=== PATIENT | female | born 1965 | race Two or more races ===

== ENCOUNTER 2024-12-29 16:33 | Emergency (ER) | payer MEDICAID, SELFPAY ==
[2024-12-29 16:50] VITALS: BP 138/84; PULSE 98; RESP 18; TEMP 36.7; O2SAT 97
--- NOTE | 2024-12-29 16:57 | XR_ITS ---
Examination: CT maxillofacial, without intravenous contrast. 2-D sagittal reconstructions. 3-D reconstructions. Date and time of exam:December 29, 2024, 1826 hours INDICATION: Patient fell today with injury of the face, facial pain CTDI: vol (mGy):17.8 DLP: (mGycm):315 Technique: Multiple axial images of maxillofacial region, 3.0 mm slice thickness. 2-D sagittal and coronal reconstructions. 3-D reconstructions. Low dose protocols were performed. One or more of the following dose reduction techniques were used; automated exposure control, adjustment of the mA and/or KV according to patient size, use of iterative reconstruction technique. Findings: Mild left forehead scalp swelling Frontal bone is intact Orbital rims intact No acute nasal bone fracture. No depression zygomatic arches. Pterygoid plates maxilla and the mandible intact IMPRESSION: No acute facial fracture.
--- NOTE | 2024-12-29 16:57 | XR_ITS ---
Examination: Knee, right , 3 views Technique: Knee AP, lateral, oblique 3 views Date and time of exam: December 29, 2024, 1712 hours. INDICATIONS: Patient fell today with injury to the knee, knee pain. FINDINGS: Prominent osteopenia. No acute fracture. No dislocation IMPRESSION: No acute fracture
--- NOTE | 2024-12-29 16:57 | XR_ITS ---
Examination: CT brain head without contrast. 2-D sagittal coronal reconstructions Date and time of exam:December 29, 2024 1826 hours INDICATIONS: Patient fell today with injury to the head, head pain and facial pain neck pain CTDI: vol (mGy):46.1 DLP: (mGycm):897 Technique: Multiple CT axial sections of the brain have been obtained, 5 mm slice thickness. Contrast has not been administered. 2-D sagittal, coronal reconstructions have been obtained Low dose protocols were performed. One or more of the following dose reduction techniques were used; automated exposure control, adjustment of the mA and/or KV according to patient size, use of iterative reconstruction technique. Findings: No significant ventricular enlargement. Intra-axial or extra-axial hemorrhage density is not seen. No mass effect or midline shift Basal cisterns are not remarkable. Fourth ventricle is midline. Cranial vault intact. Impression: Negative for acute hemorrhage, mass effect or midline shift
--- NOTE | 2024-12-29 16:57 | XR_ITS ---
Examination: CT cervical spine without contrast 2-D sagittal reconstructions 2-D coronal reconstructions 3-D reconstructions. Exam date and time:December 29, 2024 1826 hours INDICATIONS: Patient fell today with injury to the neck, neck pain CTDI:vol (mGy) 12.5 DLP: (mGycm) 280 Technique: Multiple 2 mm axial sections of the cervical spine have been obtained. The coronal and sagittal reconstructions have been obtained. 3-D reconstructions have been obtained. Low dose protocols were performed. One or more of the following dose reduction techniques were used; automated exposure control, adjustment of the mA and/or KV according to patient size, use of iterative reconstruction technique. Findings: Axial sections demonstrate intact base of the skull. C1 exhibit satisfactory relationship to the odontoid. No acute cervical vertebral body fracture seen. Alignment posterior spinous processes satisfactory. Impression: No acute cervical fracture.
--- NOTE | 2024-12-29 16:57 | XR_ITS ---
Examination: Hand, left 3 views Technique: Hand AP, oblique, lateral 3 views Date and time of exam: December 29, 2024 1709 hours INDICATIONS: Patient fell today with injury to hand, hand pain. FINDINGS: Severe osteopenia. No acute fracture Or dislocation IMPRESSION: No acute fracture
--- NOTE | 2024-12-29 16:58 | PD.EDRME ---
Rapid Medical Screening Exam RME Arrival date/time: 12/29/24 16:33 59-year-old female presents to the emergency department today for complaints of ground-level fall patient reports that she tripped. Patient reports left hand pain, right knee pain head neck and facial pain Chief Complaint: Epistaxis/Nasal Foreign Body Time Seen by Provider: 12/29/24 16:52 Vital signs: Vital Signs Temperature 98.0 F 12/29/24 16:50 Pulse Rate 98 12/29/24 16:50 Respiratory Rate 18 12/29/24 16:50 Blood Pressure 138/84 H 12/29/24 16:50 Pulse Oximetry (%) 97 12/29/24 16:50 Oxygen Delivery Method Room Air 12/29/24 16:50
--- NOTE | 2024-12-29 19:05 | PD.EDFALL ---
ED Fall Injury RME/HPI General Chief Complaint: Epistaxis/Nasal Foreign Body Stated Complaint: NOSEBLEED, LEFT HAND / KNEE INJURY FROM FALL Time Seen by Provider: 12/29/24 16:52 Arrival date/time: 12/29/24 16:33 RME / HPI RME / HPI Narrative: 12/29/24 16:33 59-year-old female presents to the emergency department today for complaints of ground-level fall patient reports that she tripped. Patient reports left hand pain, right knee pain head neck and facial pain -------- This section includes all my notes and documentations, including HPI, PE, and ED course. Ivan Sims MD HPI: 59yo female with a history of DMII, HTN presents to the ED s/p ground level fall around 1200, about 7 hours ago. Patient states she tripped and fell, hitting her face on the ground. Patient denies any loss of consciousness. Patient reports associated left hand pain and right knee pain. She denies any chest pain, abdominal pain, shortness of breath or any other associated symptoms. No other complaints reported. ROS: All negative except as documented in HPI. Physical Exam: General: Alert and oriented. No acute distress when remaining still. Eyes: Conjunctivae and lids clear. EOMI. PERRL. ENT: No nasal congestion. Pharynx normal. Tympanic membrane normal bilaterally. Neck: Supple. No tenderness. Heart: RRR. Lungs: No respiratory distress. Good air movement. No rhonchi, wheezing, rales. Chest: No tenderness. Abdomen: Soft and nontender. Normal bowel sounds. No distension. No rebound or guarding. Back: No tenderness. Legs: No clubbing, cyanosis, edema. Skin: Warm and dry. Neuro: Alert and oriented X 3. Cranial Nerves II-XII grossly intact. No peripheral motor deficits. Musculoskeletal: Left hand and right knee tenderness. All other major joints and bones are not tender with no limited range of motion. I reviewed all diagnostic test results. My interpretation of the left hand x-ray is unremarkable. My interpretation of the right knee x-ray is unremarkable. My review of the CT cervical spine report is unremarkable. My review of the CT head report is unremarkable. My review of the CT facial report is unremarkable. At this point, diagnoses include fall, contusion of left hand, contusion of right knee, and contusion of nose. Recommended supportive care. Based on my best medical judgment, made decision no further evaluation or treatment indicated at this time. Patient understands and agrees to the discharge instructions customized and printed, see below. Discharge Instructions from Dr. Sims printed for you: 1. Fortunately, there is no very serious injury. Such as brain injury or broken neck or broken back or other broken bone or internal organ injury. 2. You sustained contusions of the nose and left hand and right knee. See attached handouts. 3. Apply ice for 20 minutes every 2-3 hours today and tomorrow. 4. Ibuprofen 400 mg every 6-8 hours today and tomorrow to decrease inflammation then as needed. 5. Tylenol with codeine for severe pain. Can take 1 or 2 pills at a time. 6. For the left hand contusion, cecilia wrap the fingers and wrist for 3 days then as needed. Elevate above the heart level for 3 days is much as possible. Placing your hand on your head is a good method. 7. For your right knee contusion, minimal weightbearing and elevate above the waist level for 3 days is much as possible. Use a cane or stick in your left hand to take the weight off. 8. See a private doctor on 12/31/2024 for recheck. Ask for help until you are completely better. 9. Seek immediate medical care with worsening pain or with any concerns. Ivan Sims MD Related Data Home Medications ?Medication ?Instructions ?Recorded ?Confirmed metformin 850 mg tablet 1,000 mg PO BID #0 tabs 12/15/14 06/03/18 (Glucophage) glipizide 10 mg tablet 10 mg PO ACBR #0 tabs 06/27/16 06/03/18 pioglitazone 45 mg tablet (Actos) 45 mg PO QDAY #0 tabs 06/27/16 06/03/18 Previous Rx's ?Medication ?Instructions ?Recorded ibuprofen 600 mg tablet 600 mg PO Q6HR PRN PAIN #30 tabs 12/15/14 cyclobenzaprine 10 mg tablet 10 mg PO TID PRN muscle spasm #30 05/10/24 tabs cyclobenzaprine 5 mg tablet 5 mg PO TID PRN muscle spasm #14 05/10/24 tabs ibuprofen 600 mg tablet 600 mg PO TID PRN pain #14 tabs 05/10/24 lidocaine 5 % topical patch 1 patch topical QDAY #15 ea 05/10/24 acetaminophen 300 mg-codeine 30 mg 1 tab PO Q8H PRN pain #20 tabs 12/29/24 tablet ibuprofen 400 mg tablet 400 mg PO Q8H PRN pain #30 tabs 12/29/24 Allergies Allergy/AdvReac Type Severity Reaction Status Date / Time [place] And Derivatives Allergy Unknown Verified 12/29/24 16:37 Review of Systems Review of Systems Systems Reviewed: All systems reviewed, normal except as documented Past Medical History Past Medical History CARDIAC: Positive Cardiac Disorders and Hypertension; Negative Congestive Heart Failure RESPIRATORY: Negative Chronic Obstructive Pulmonary Disease (COPD) GENITOURINARY: Negative Renal Disease ENDOCRINE: Positive Diabetes Mellitus Type 2; Negative Diabetes Mellitus Type 1 PSYCHO/SOCIAL: Positive Depression Family History FAMILY HISTORY: Positive Family Cardiac Disorders Social History SMOKING STATUS: Never smoker ED Exam Narrative Physical exam: As noted in HPI. Course Quality Measures none Orders Category Date Time Status CT cervical spine wo con Stat Exams 12/29/24 16:[address] facial bones wo con Stat Exams 12/29/24 16:[address] head/brain wo con Stat Exams 12/29/24 16:57 Completed XR hand comp LT min 3V Stat Exams 12/29/24 16:57 Completed XR knee RT 3V Stat Exams 12/29/24 16:57 Completed Vital Signs Vital signs: Vital Signs Temperature 98.0 F 12/29/24 16:50 Pulse Rate 98 12/29/24 16:50 Respiratory Rate 18 12/29/24 16:50 Blood Pressure 138/84 H 12/29/24 16:50 Pulse Oximetry (%) 97 12/29/24 16:50 Oxygen Delivery Method Room Air 12/29/24 16:50 Fall MDM Narrative MDM Narrative:: Scribe Attestation: 12/29/24 - Pamela Mcclure am scribing for and in the presence of Dr. Sims. 59yo female with a history of DMII, HTN presents to the ED s/p ground level fall around 1200. Patient states she tripped and fell, hitting her face on the ground. Patient denies any loss of consciousness. Patient reports associated left hand pain and right knee pain. She denies any chest pain, abdominal pain, shortness of breath or any other associated symptoms. No other complaints reported. Patient data External records reviewed:: [facility] previous records (Per chart review, patient was seen here on 05/10/24 for knee pain.) Clinical information provided by:: patient Social determinants that could affect healthcare access:: none Patient has the following chronic illnesses:: DMII, HTN How is presenting disease/condition affected by chronic disease/condition?: uneffected by Evaluation data The following diagnostics were reviewed and interpreted by me:: radiology exam(s) Lab and/or radiology exams considered but not ordered:: none Interpretation Summary: I reviewed all diagnostic test results. My interpretation of the left hand x-ray is unremarkable. My interpretation of the right knee x-ray is unremarkable. My review of the CT cervical spine report is unremarkable. My review of the CT head report is unremarkable. My review of the CT facial report is unremarkable. Medications / Prescriptions Medications or Prescriptions considered but not ordered:: none Medication administrations:: none Consultations Consultation(s) initiated? (list below): No Diagnosis Fall Differential Diagnosis: syncope, dislocation of shoulder region, fracture of wrist, compression fracture, concussion with loss of consciousness and concussion without loss of consciousness Most likely diagnosis given after review of the tests above:: Fall, Contusion of left hand, Contusion of right knee, Contusion of nose Admission Indicated Admission indicated?: not indicated Explain why admission is indicated or not indicated:: With no severe injuries, there was no indication for admission. Admission Request Was there a request for admission?: No Disposition Plan Disposition Plan: Discharge Discharge Attestation Discharge Attestation: The patient and all family members were given an opportunity to ask questions and understood the discharge instructions. Discharge instructions specifically effects, indications for sooner follow up or return to the emergency department, and the expected course of current diagnosis. Patient condition: Stable Discharge Plan Plan Patient Disposition: HOME (Self Care) Prescriptions/Referrals Prescriptions/Med Rec: New acetaminophen-codeine 300-30 mg tablet 1 tab PO Q8H MDD 6 PRN (Reason: pain) Qty: 20 0RF ibuprofen 400 mg tablet 400 mg PO Q8H PRN (Reason: pain) Qty: 30 0RF No Action metformin [Glucophage] 850 MG tablet 1,000 mg PO BID Qty: 0 ibuprofen 600 MG tablet 600 mg PO Q6HR PRN (Reason: PAIN) Qty: 30 0RF glipizide 10 MG tablet 10 mg PO ACBR Qty: 0 pioglitazone [Actos] 45 MG tablet 45 mg PO QDAY Qty: 0 Patient Comments: FOR DIABETES lidocaine 5 % adhesive patch,medicated 1 patch topical QDAY Qty: 15 0RF Rx Instructions: leave on most painful area for up to 12 hrs cyclobenzaprine 5 mg tablet 5 mg PO TID PRN (Reason: muscle spasm) Qty: 14 0RF cyclobenzaprine 10 mg tablet 10 mg PO TID PRN (Reason: muscle spasm) Qty: 30 0RF ibuprofen 600 mg tablet 600 mg PO TID PRN (Reason: pain) Qty: 14 0RF Referrals: Uzair Diaz MD [Primary Care Provider] - In 1 week Problem List Clinical Impression: Fall, Contusion of left hand, Contusion of right knee, Contusion of nose Patient/Caregiver Discharge Instructions Discharge Activity: activity as tolerated Education Materials: ED Hand Contusion, ED Contusion, Lower Extremity, ED Nasal Contusion Additional Instructions: Discharge Instructions from Dr. Sims printed for you: 1. Fortunately, there is no very serious injury. Such as brain injury or broken neck or broken back or other broken bone or internal organ injury. 2. You sustained contusions of the nose and left hand and right knee. See attached handouts. 3. Apply ice for 20 minutes every 2-3 hours today and tomorrow. 4. Ibuprofen 400 mg every 6-8 hours today and tomorrow to decrease inflammation then as needed. 5. Tylenol with codeine for severe pain. Can take 1 or 2 pills at a time. 6. For the left hand contusion, cecilia wrap the fingers and wrist for 3 days then as needed. Elevate above the heart level for 3 days is much as possible. Placing your hand on your head is a good method. 7. For your right knee contusion, minimal weightbearing and elevate above the waist level for 3 days is much as possible. Use a cane or stick in your left hand to take the weight off. 8. See a private doctor on 12/31/2024 for recheck. Ask for help until you are completely better. 9. Seek immediate medical care with worsening pain or with any concerns. Instrucciones de wilfrido del Dr. Sims, impresas para usted: 1. Afortunadamente, no hay lesiones graves, bo corina lesi?n cerebral, corina fractura de azalea, corina fractura de espalda u otra lesi?n ?sea o de ?rganos internos. 2. Sufri? contusiones en la nariz, la mano izquierda y la rodilla derecha. Consulte los folletos adjuntos. 3. Aplique hielo donna 20 minutos cada 2-3 horas hoy y ma?jose martin. 4. Ibuprofeno 400 mg cada 6-8 horas hoy y ma?jose martin para reducir la inflamaci?n, y luego seg?n sea necesario. 5. Tylenol con code?na para el dolor intenso. Puede zulma 1 o 2 pastillas a la vez. 6. Para la contusi?n de la mano izquierda, aplique vendajes el?sticos en los dedos y la mu?eca donna 3 d?as y luego seg?n sea necesario. Eleve la pierna por encima del nivel del coraz?n donna 3 d?as, en la medida de lo posible. Colocar la mano sobre la brittany es un buen m?todo. 7. Para la contusi?n de la rodilla derecha, minimice el peso y eleve la pierna por encima del nivel de la cintura donna 3 d?as, en la medida de lo posible. Use un karl?n o vara en la mano izquierda para aliviar el peso. 8. Consulte con un m?dico particular el 31/12/2024 para corina nueva revisi?n. Solicite ayuda hasta que se recupere por completo. 9. Busque atenci?n m?dica inmediata si el dolor empeora o si tiene alguna inquietud. Print Language: Malaysian Stand Alone Forms: Milena Award Info., Patient Portal Info Letter
== END 2024-12-29 19:25 | disposition home or self-care (01) ==
PROVIDERS: Emergency Provider Emergency Medicine; PCP Family Medicine
DX: S00.33XA Contusion of nose, initial encounter (principal); S60.222A Contusion of left hand, initial encounter; S80.01XA Contusion of right knee, initial encounter; S09.93XA Unspecified injury of face, initial encounter; S09.90XA Unspecified injury of head, initial encounter; W01.0XXA Fall on same level from slipping, tripping and stumbling without subsequent striking against object, initial encounter
CPT/HCPCS: 70450; 70486; 72125; 73130; 73562; 99284

== ENCOUNTER → 2025-01-01 | Outpatient (CLI) | payer MEDICAID, SELFPAY ==
[2024-12-31 10:06] LABS: Basophils % (Auto) 0 % (0-2.5); Eosinophils # (Auto) 0.2 Thou/mm3 (0.0-0.5); Eosinophils % (Auto) 3 % (0-10); Hematocrit 37.3 % (36.0-46.0); Hemoglobin 13.3 g/dL (12.0-16.0); Immature Granulocytes % (Auto) 0 % (0-0); Immature Granulocytes Auto 0.02 Thou/mm3 (0.00-0.00); Lymphocytes # (Auto) 2.5 Thou/mm3 (1.0-4.8); Lymphocytes % (Auto) 32 % (10-50); Mean Corpuscular HGB Conc 35.7 g/dl (31.0-37.0); Mean Corpuscular Hemoglobin 29.7 pg (25.0-35.0); Mean Corpuscular Volume 83 fL (80-100); Monocytes # (Auto) 0.7 Thou/mm3 (0.0-0.8); Monocytes % (Auto) 8 % (0-12); Neutrophils # (Auto) 4.4 Thou/mm3 (1.8-7.7); Neutrophils % (Auto) 56 % (37-80); Nucleated Red Blood Cell % 0 /100 WBC (0); Platelet Count 276 Thou/mm3 (140-440); RDW Standard Deviation 38.8 fL (36.4-46.3); Red Blood Count 4.48 Miln/mm3 (4.00-5.20); White Blood Count 7.9 Thou/mm3 (3.6-11.0)
[2024-12-31 11:03] LABS: Partial Thromboplastin Time 27.6 Seconds (22.0-36.0); Prothrombin Time 10.7 Seconds (9.0-12.2)
--- NOTE | 2025-01-01 08:00 | XR_ITS ---
Examination: Breast ultrasound, unilateral, left complete Date and time of exam: January 01, 2025 0916 hours INDICATIONS: Palpable lump left breast 6 months Technique: Real-time carrasco scale ultrasonographic imaging performed left breast including all 4 quadrants as well as nipple retroareolar and axillary region. Findings: 2:00 nodule indistinct margins 2.6 x 1.9 x 2.7 cm IMPRESSION: BI-RADS Category 4: Suspicious for malignancy Suspicious mass 2:00 position left breast, biopsy is needed to exclude breast carcinoma, this mass is amenable to ultrasound-guided breast biopsy for diagnosis
--- NOTE | 2025-01-01 08:30 | XR_ITS ---
Examinations: Ultrasound-guided percutaneous breast biopsy, 2:00 nodule left breast Left breast sonography limited INDICATIONS: BI-RADS 4 suspicious nodule 2:00 position left breast on left breast sonogram today Exam date and time: January 01, 2025 0920 hours. Informed consent provided. Technique: A timeout was completed verifying correct patient, procedure, site, positioning, and special equipment if applicable Informed consent provided. The patient was placed in a supine position for the breast biopsy. Sonographic images of the breast were performed for localization of the suspicious nodule The patient's breast was prepped and draped in sterile fashion. Maximum sterile barrier technique, hand hygiene, ultrasound sterile technique 1% lidocaine was used to anesthetize the skin and breast adjacent to the suspicious nodule. Utilizing ultrasonographic guidance, 8 core biopsies were obtained of the suspicious nodule utilizing an 18-gauge BioPince needle. The specimens appears satisfactory. US guided breast biopsy marker placement. Estimated blood loss 3 cc. The patient tolerated the procedure well and there were no complications. Impression: Successful ultrasound-guided percutaneous breast biopsy, left breast 2:00 nodule. Ultrasound guided breast biopsy marker placement.
== END | disposition home or self-care (01) ==
PROVIDERS: Radiology Diagnostic Radiology; PCP Family Medicine; Referring Provider Surgery; Visit Provider Surgery
DX: C50.412 Malignant neoplasm of upper-outer quadrant of left female breast (principal); Z01.812 Encounter for preprocedural laboratory examination
CPT/HCPCS: 19083; 36415; 76641; 85025; 85610; 85730; A4648

== ENCOUNTER 2025-01-27 16:23 | Observation (INO) | payer MEDICAID, SELFPAY ==
--- NOTE | 2025-01-26 10:00 | EKG_ITS ---
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
[2025-01-26 10:04] VITALS: BMI 26.9
[2025-01-26 11:40] LABS: Basophils % (Auto) 0 % (0-2.5); Eosinophils # (Auto) 0.1 Thou/mm3 (0.0-0.5); Eosinophils % (Auto) 2 % (0-10); Hematocrit 39.6 % (36.0-46.0); Hemoglobin 13.7 g/dL (12.0-16.0); Immature Granulocytes % (Auto) 0 % (0-0); Immature Granulocytes Auto 0.02 Thou/mm3 (0.00-0.00); Lymphocytes # (Auto) 2.2 Thou/mm3 (1.0-4.8); Lymphocytes % (Auto) 29 % (10-50); Mean Corpuscular HGB Conc 34.6 g/dl (31.0-37.0); Mean Corpuscular Hemoglobin 29.4 pg (25.0-35.0); Mean Corpuscular Volume 85 fL (80-100); Monocytes # (Auto) 0.6 Thou/mm3 (0.0-0.8); Monocytes % (Auto) 8 % (0-12); Neutrophils # (Auto) 4.6 Thou/mm3 (1.8-7.7); Neutrophils % (Auto) 60 % (37-80); Nucleated Red Blood Cell % 0 /100 WBC (0); Platelet Count 316 Thou/mm3 (140-440); RDW Standard Deviation 39.8 fL (36.4-46.3); Red Blood Count 4.66 Miln/mm3 (4.00-5.20); White Blood Count 7.6 Thou/mm3 (3.6-11.0)
[2025-01-26 11:47] LABS: Prothrombin Time 10.8 Seconds (9.0-12.2)
[2025-01-26 11:53] LABS: Alanine Aminotransferase 13 U/L (10-49); Albumin, Serum 4.3 gm/dL (3.4-4.8); Albumin/Globulin Ratio 1.5 (1.2-2.2); Alkaline Phosphatase 75 U/L (46-116); Anion Gap 8 (7-16); Aspartate Amino Transferase 19 U/L (0-34); BUN/Creatinine Ratio 23 Ratio (12-20); Bilirubin,Total 1.3 mg/dL (0.3-1.2); Blood Urea Nitrogen 14 mg/dL (9-23); Calcium 9.6 mg/dL (8.3-10.6); Calcium (Corrected) 9.6 mg/dL (8.5-10.1); Carbon Dioxide 28.4 mMol/L (20.0-31.0); Chloride 104 mMol/L (98-107); Creatinine (Component) 0.6 mg/dL (0.6-1.3); Estimated Creatinine Clearance 77.9 mL/min (>60); Globulin 2.9 gm/dL (2.3-3.5); Glucose 201 mg/dL (74-106); Osmolality,Calculated 285 (275-295); Sodium 140 mMol/L (136-145); Total Protein 7.2 gm/dL (5.7-8.2); eGFR > 60 See Note
[2025-01-27] VITALS (14 sets, daily range): BP systolic 137–168; BP diastolic 71–97; PULSE 70–99; RESP 11–18; TEMP 36.4–36.6; O2SAT 97–99; BMI 26.9
--- NOTE | 2025-01-27 14:21 | PD.SUROPNT ---
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 There are no further axillary nodes. The lesion is located over the upper and outer quadrant at 2 o'clock position Procedure Description Of the patient's bed to the operating room endotracheal anesthesia was given. I injected the left breast both in the tumor as well as subareolar region with 5 cc of methylene blue. Then I massaged the breast for about 5 minutes. Then the left breast on the chest was washed with ChloraPrep solution draped in a sterile manner. Timeout was performed. I made elliptical incision and dissected out the breast from the skin flaps carefully. The breast was completely dissected off from the chest wall and delivered. This was removed from the pectoralis major and some of the perforators were suture-ligated with 3-0 chromic. Then I started evaluating the axilla for lymph node. Fine dissection was carried out and I found 1 lymph node measuring 1.5 cm which is fairly large. But it was not stained blue by methylene blue. I removed this and then I looked for another lymph node which was stained blue and I also removed it this lymph node which was small measuring less than a centimeter. I found a third lymph node which was not stained by methylene blue. This was dissected out and gently removed. Then further diligent search was made to look for the lymph nodes in the level 1 and level 2 axillary area and then was found. After checking for the bleeding points and using hot packs I placed a 15 round Durga-Ibarra on the left chest wall and brought it out through small opening lateral to the incision. This was anchored to the skin with 2-0 silk. Then the subcutaneous tissue was closed with interrupted 3-0 chromic and the wound edges were stapled together. Dressing was applied with Adaptic and fluff and compression with breast binder. Patient tolerated procedure well. Anesthesia GETA Pathology / specimen Other (1. Left breast cancer with a stitch irma to the superior border, #2 3 lymph nodes with 1 stained with methylene blue) IVF Infused 800 Estimated Blood Loss 100 Condition Stable Disposition PACU Surgeon Vaishali Gonzales MD Surgical Staff Operation Date: 01/27/25 11:30 Case Staff Anesthesiologist: Esvin Pastrana RNarmament installer: Cindy Myers
[2025-01-27] MEDS: ONDANSETRON INJ 2 MG/ML INJ 2 ML 4 MG IVP (14:23)
--- NOTE | 2025-01-27 14:40 | SUR.PHASEI ---
1340: Pt received in [facility] via hospital bed. Report from Tian COLE and Dr. Pastrana. Pt obtunded. Easily aroused with brief eye opening then drifts back to sleep. Dressing to left breast dry, clean, intact. Durga Ibarra with bulb compressed. Scant amount of dark red drainage. No c/o pain. 1402: Pt has complaints of small amount of pain. Anesthesia administered pain medication. 1410: Pt resting with no further complaints of pain. Resp even, unlabored. VS stable. Dressing remains dry, clean, intact. DONNA drain bulb compressed with scant amount of dark red drainage.
--- NOTE | 2025-01-27 14:50 | SUR.PHASEII ---
1423: Pt had c/o nauseal. Is heaving, gagging. No emesis. Zofran given at this time. 1445: Pt resting with no further complaints. B/P remains elevated but is within pre-procedure baseline. Has not met parameters for Hydralazine. at bedside.
--- NOTE | 2025-01-27 15:47 | SUR.PHASEII ---
1515: Pt has been resting with no further c/o nausea. Brother is now at bedside. VS stable. Dressing remains dry, clean, intact with DONNA drain compressed with small amount of dark red drainage. States she has very little pain. 1535: Received room assignment. Report to Nicki COLE, 3rd floor. Pt transferred to 352 in stable condition.
[2025-01-27] MEDS: SODIUM CHLORIDE 0.9% 1000 ML 1,000 ML 50 ML IV (17:06)
--- NOTE | 2025-01-27 18:21 | PC.NURSE ---
Per Md Justin no blood sugar checks at this time, resume losartan home dose. Entered to administer tonight per md orders.
[2025-01-27] MEDS: LOSARTAN POTASSIUM 25 MG TABLET 50 MG PO (20:50)
[2025-01-27] MEDS: ACETAMINOPHEN 325 MG TABLET 650 MG PO (21:14)
[2025-01-28] VITALS: BP 128/70; PULSE 88; RESP 18; TEMP 36.4; O2SAT 99
[2025-01-28 00:52] VITALS: PULSE 19; RESP 96; RESP 99
[2025-01-28 03:53] VITALS: BP 114/63; PULSE 80; RESP 17; TEMP 36.4; O2SAT 95
[2025-01-28 06:02] LABS: Basophils % (Auto) 0 % (0-2.5); Eosinophils % (Auto) 0 % (0-10); Hematocrit 34.6 % (36.0-46.0); Hemoglobin 12.3 g/dL (12.0-16.0); Immature Granulocytes % (Auto) 0 % (0-0); Immature Granulocytes Auto 0.03 Thou/mm3 (0.00-0.00); Lymphocytes # (Auto) 2.3 Thou/mm3 (1.0-4.8); Lymphocytes % (Auto) 23 % (10-50); Mean Corpuscular HGB Conc 35.5 g/dl (31.0-37.0); Mean Corpuscular Hemoglobin 29.8 pg (25.0-35.0); Mean Corpuscular Volume 84 fL (80-100); Monocytes % (Auto) 10 % (0-12); Neutrophils # (Auto) 6.5 Thou/mm3 (1.8-7.7); Neutrophils % (Auto) 66 % (37-80); Nucleated Red Blood Cell % 0 /100 WBC (0); Platelet Count 260 Thou/mm3 (140-440); RDW Standard Deviation 38.5 fL (36.4-46.3); Red Blood Count 4.13 Miln/mm3 (4.00-5.20); White Blood Count 9.8 Thou/mm3 (3.6-11.0)
[2025-01-28 06:29] LABS: Anion Gap 10 (7-16); Carbon Dioxide 24.4 mMol/L (20.0-31.0); Chloride 107 mMol/L (98-107); Potassium 4.2 mMol/L (3.4-5.1); Sodium 141 mMol/L (136-145)
[2025-01-28 08:00] VITALS: BP 123/67; PULSE 87; RESP 16; TEMP 36.8; O2SAT 95
--- NOTE | 2025-01-28 09:14 | PD.SURPROG ---
Documentation for date of: 01/28/25 Subjective Subjective Narrative: Patient is doing very well and does not have much pain. There is very minimal drainage in the Durga-Ibarra. Exam Vital Signs Temp Pulse Resp BP Pulse Ox O2 Del Method O2 Flow Rate 98.3 F 87 16 123/67 95 Room Air 2 01/28/25 08:00 01/28/25 08:00 01/28/25 08:00 01/28/25 08:00 01/28/25 08:00 01/28/25 08:00 01/28/25 00:52 FiO2 81 01/28/25 00:52 Her vital signs are normal Routine Chest/Breast/Axilla Exam Comments: Dressing is intact and is draining very minimal fluid Results Results: Laboratory Laboratory Narrative: Laboratory results are within normal limits Assessment & Plan Assessment Additional comments: Impression: Stable postoperative course following mastectomy Plan Plan: We shall discharge the patient today and see her on Sunday in my office PROCEDURES: Procedures Total mastectomy of the left breast with sentinel node biopsy
[2025-01-28 10:00] VITALS: BP 123/67; PULSE 87
[2025-01-28] MEDS: LOSARTAN POTASSIUM 25 MG TABLET 50 MG PO (10:00)
[2025-01-28] MEDS: ACETAMINOPHEN 325 MG TABLET 650 MG PO (11:29)
--- NOTE | 2025-01-28 12:12 | PC.SS ---
SS has faxed [facility] referral uisng XM Fax. Pt and family is aware.
--- NOTE | 2025-01-28 15:22 | PC.SS ---
SS met with patient regarding her d/c plan. Pt is alert/oriented. Pt was admitted for [facility] [phone] [id number]. Pt confirmed demographic and contact information is correct on facesheet. Pt resides with and . Pt ambulates independently without assistance or DME. Pt is ok with all ADLs. Patient?s pharmacy of choice is [facility]. Pt named her , Sigifredo Llamas medical decision maker if she is unable. Patient?s choice is to return home upon d/c. Pt states she followed up with PCP 3 months ago. Pt and family (son and dtr) are requesting to be [facility] with [facility]. SS has sent [facility] referral. has provided dtr with [employer] which contains SS phone# to follow up. D/C plan: Return home Next of Kin: Lazaro Llamas, , phone# [phone] PCP: [facility] Address: Correct on facesheet
--- NOTE | 2025-01-29 12:22 | ESPR_ITS ---
Documentation for date of: 01/29/25 POST ANESTHESIA NOTE: Patient had GETA for L mastectomy on 01/27/25. I just called her number via corporate sales trainer, answered by her family member, who reported patient talking rapidly post op, which I educated them that sometimes either from anesthesia or pain medication, a patient may get brief confusion and the family member endorsed confusion, and he endorsed that she is back to herself now. He also reported her crying sometimes and I educated him that I don't know if she is crying from post op pain but for further post op care and questions, they should contact the surgeon's office. He agreed and otherwise did not report any problems from anesthesia and had no further questions for me. Esvin Pastrana MD Anesthesia Progress Note Progress Note Most recent Vital Signs: Last Vital Signs Temp 98.3 F 01/28/25 08:00 Pulse 87 01/28/25 10:00 Resp 16 01/28/25 08:00 BP 123/67 01/28/25 10:00 Pulse Ox 95 01/28/25 08:00 O2 Del Method Room Air 01/28/25 08:00 O2 Flow Rate 2 01/28/25 00:52 FiO2 81 01/28/25 00:52
== END 2025-01-28 11:45 | disposition home or self-care (01) ==
LOC: S3NX 01-28 06:50 → S3EX 01-28 06:50
PROVIDERS: Admitting Provider Surgery; PCP Family Medicine; Referring Provider Surgery; Visit Provider Surgery
PROC: (CPT 19301; principal; 2025-01-27 11:30)
DX: C50.412 Malignant neoplasm of upper-outer quadrant of left female breast (principal); Z01.810 Encounter for preprocedural cardiovascular examination
CPT/HCPCS: 19301; 38500; 36415; 80051; 80053; 85025; 85610; 85730; 93005; 96374; A4217; A4649; G0378; J0131; J1100; J1171; J2250; J2405; J2704; J3010; J3490; J7030; Q9968; A9270; J1805

== ENCOUNTER 2025-02-01 23:27 | Emergency (ER) | payer MEDICAID, SELFPAY ==
--- NOTE | 2025-02-01 23:56 | XR_ITS ---
Examination: CT maxillofacial, without intravenous contrast. 2-D sagittal reconstructions. 3-D reconstructions. Date and time of exam:February 02, 2025, 0225 hours INDICATIONS: Patient fell today with injury to the face, facial pain CTDI: vol (mGy):15.2 DLP: (mGycm):262 Technique: Multiple axial images of maxillofacial region, 3.0 mm slice thickness. 2-D sagittal and coronal reconstructions. 3-D reconstructions. Low dose protocols were performed. One or more of the following dose reduction techniques were used; automated exposure control, adjustment of the mA and/or KV according to patient size, use of iterative reconstruction technique. Findings: Frontal bone is intact. Orbital rims intact. Bilateral nondisplaced nasal bone fractures which appear old but clinical correlation is advised Maxilla and mandible are intact IMPRESSION: Bilateral nasal bone fractures which appear old, but clinical correlation is advised
--- NOTE | 2025-02-01 23:56 | XR_ITS ---
Examination: CT brain head without contrast. 2-D sagittal coronal reconstructions Date and time of exam:February 02, 2025, 0225 hours INDICATIONS: Dizziness episodes today, patient fell with injury to head, head pain CTDI: vol (mGy):45.2. DLP: (mGycm):868. Technique: Multiple CT axial sections of the brain have been obtained, 5 mm slice thickness. Contrast has not been administered. 2-D sagittal, coronal reconstructions have been obtained Low dose protocols were performed. One or more of the following dose reduction techniques were used; automated exposure control, adjustment of the mA and/or KV according to patient size, use of iterative reconstruction technique. Findings: No significant ventricular enlargement. Intra-axial or extra-axial hemorrhage density is not seen. No mass effect or midline shift Basal cisterns are not remarkable. Fourth ventricle is midline. Cranial vault intact. Old appearing bilateral nasal bone fractures, clinical correlation is advised Impression: Negative for acute hemorrhage, mass effect or midline shift
--- NOTE | 2025-02-01 23:56 | PD.EDRME ---
Rapid Medical Screening Exam RME Arrival date/time: 02/01/25 23:27 Chief Complaint: Dizziness Time Seen by Provider: 02/01/25 23:36 Vital signs: Vital Signs Temperature 98.4 F 02/01/25 23:58 Pulse Rate 92 02/01/25 23:58 Respiratory Rate 17 02/01/25 23:58 Blood Pressure 138/70 H 02/01/25 23:58 Pulse Oximetry (%) 97 02/01/25 23:58 Oxygen Delivery Method Room Air 02/01/25 23:58 E Narrative: Dizziness episode this evening, fell forward hitting her head against the carpet. No loc. No anticoagulant use. Hx left mastectomy last Sunday.
[2025-02-01 23:58] VITALS: BP 138/70; PULSE 92; RESP 17; TEMP 36.9; O2SAT 97
[2025-02-02 00:19] LABS: Basophils % (Auto) 1 % (0-2.5); Eosinophils # (Auto) 0.4 Thou/mm3 (0.0-0.5); Eosinophils % (Auto) 4 % (0-10); Hematocrit 35.6 % (36.0-46.0); Hemoglobin 12.4 g/dL (12.0-16.0); Immature Granulocytes % (Auto) 0 % (0-0); Immature Granulocytes Auto 0.02 Thou/mm3 (0.00-0.00); Lymphocytes # (Auto) 3.4 Thou/mm3 (1.0-4.8); Lymphocytes % (Auto) 38 % (10-50); Mean Corpuscular HGB Conc 34.8 g/dl (31.0-37.0); Mean Corpuscular Volume 86 fL (80-100); Monocytes # (Auto) 0.8 Thou/mm3 (0.0-0.8); Monocytes % (Auto) 9 % (0-12); Neutrophils # (Auto) 4.2 Thou/mm3 (1.8-7.7); Neutrophils % (Auto) 48 % (37-80); Nucleated Red Blood Cell % 0 /100 WBC (0); Platelet Count 290 Thou/mm3 (140-440); RDW Standard Deviation 39.1 fL (36.4-46.3); Red Blood Count 4.13 Miln/mm3 (4.00-5.20); White Blood Count 8.9 Thou/mm3 (3.6-11.0)
[2025-02-02 00:36] LABS: Alanine Aminotransferase 13 U/L (10-49); Albumin/Globulin Ratio 1.4 (1.2-2.2); Alkaline Phosphatase 65 U/L (46-116); Anion Gap 6 (7-16); Aspartate Amino Transferase 21 U/L (0-34); BUN/Creatinine Ratio 24 Ratio (12-20); Bilirubin,Total 0.6 mg/dL (0.3-1.2); Blood Urea Nitrogen 17 mg/dL (9-23); Calcium 9.3 mg/dL (8.3-10.6); Calcium (Corrected) 9.3 mg/dL (8.5-10.1); Carbon Dioxide 26.6 mMol/L (20.0-31.0); Chloride 110 mMol/L (98-107); Creatinine (Component) 0.7 mg/dL (0.6-1.3); Globulin 2.8 gm/dL (2.3-3.5); Glucose 151 mg/dL (74-106); Osmolality,Calculated 289 (275-295); Sodium 143 mMol/L (136-145); Total Protein 6.8 gm/dL (5.7-8.2); Troponin I < 0.002 ng/mL (0.0-0.045); eGFR > 60 See Note
--- NOTE | 2025-02-02 02:02 | EDNOTE_ITS ---
ED Dizzyness RME/HPI General Chief Complaint: Dizziness Stated Complaint: DIZZINESS AND FALL, HIT NOSE, Time Seen by Provider: 02/01/25 23:36 Arrival date/time: 02/01/25 23:27 RME / HPI RME / HPI Narrative: Dizziness episode this evening, fell forward hitting her head against the carpet. No loc. No anticoagulant use. Hx left mastectomy last Sunday. ------ Dr. Melgar?s Main ED Evaluation: 59yo female with a history of breast CA, HTN BIB her [id number] presents to the ED for a chief complaint of a fall. Daughter states the patient was trying to get up when she felt dizzy and fell, hitting her head/nose on the floor. Denies any loss of consciousness. Patient is not on blood thinners. Patient denies any neck pain, N/V, chest pain, abdominal pain, back pain, extremity pain or any other associated symptoms. Patient is s/p left mastectomy on 01/27/25. Related Data Home Medications ?Medication ?Instructions ?Recorded ?Confirmed glipizide 10 mg tablet 10 mg PO BID #0 tabs 6 01/26/25 buspirone 10 mg tablet 10 mg PO Q12H 01/26/2501/26 losartan 50 mg tablet 50 mg PO DAILY 01/26/2501/05 metformin 1,000 mg tablet 1,000 mg PO BID 01/26/25 Allergies Allergy/AdvReac Type Severity Reaction Status Date / Time Fleming And Derivatives Allergy Unknown Verified 02/01/25 23:29 Review of Systems Review of Systems Systems Reviewed: All systems reviewed, normal except as documented Past Medical History Past Medical History NEUROLOGIC: Negative Neurological Disorders, Cerebrovascular Accident, Transient Ischemic Attacks (TIA), Dementia, Alzheimer's Disease, Parkinson's Disease, Brain Tumor, Meningitis, Seizures, Epilepsy, Multiple Sclerosis, Cerebral Palsy, Amyotrophic Lateral Sclerosis (ALS/Josephine Gehrig's), Guillain-Wellman Syndrome, Spina Bifida, Paralysis, Peripheral Neuropathy, Toledo's Palsy, Subdural Hematoma, Migraine, Head Trauma, Spinal Cord Injury or Traumatic Brain Injury CARDIAC: Positive Cardiac Disorders and Hypertension; Negative Myocardial Infarction, Cardiac Arrhythmia, Atrial Fibrillation, Angina, Heart Murmur, Coronary Artery Disease, Atherosclerotic Heart Disease, Peripheral Vascular Disease, Hypercholesterolemia, Aneurysm, Congestive Heart Failure, Congenital Heart Disease, Valvular Heart Disease, Rheumatic Fever, Cardiomyopathy, Edema, Pericarditis, Cellulitis, Deep Vein Thrombosis, Hypotension or Varicose Veins RESPIRATORY: Negative Chronic Obstructive Pulmonary Disease (COPD), Asthma, Bronchitis, Emphysema, Pneumonia, Pulmonary Fibrosis, Cystic Fibrosis, Tuberculosis, Pulmonary Embolism, Pulmonary Edema or Sleep Apnea GASTROINTESTINAL: Negative Gastrointestinal Disorders, Hepatitis, Cirrhosis, Pancreatitis, Celiac Disease, Gall Bladder Disease, Gastrointestinal Bleed, Esophageal Varices, Seaman's Esophagus, Colitis, Ulcerative Colitis, Diverticulitis, Diverticulosis, Ulcer, Colorectal Cancer, Irritable Bowel, Crohn's Disease, Obstructive Bowel, Hiatal Hernia, Hemorrhoids, Gastroesophageal Reflux Disease or Obesity GENITOURINARY: Negative Genitourinary Disorders, Renal Disease, Kidney Stones, Polycystic Kidney Disease, Neurogenic Bladder, Inguinal Hernia or Dialysis REPRODUCTIVE: Positive Breast Cancer; Negative Endometriosis, Genital Herpes, Gonorrhea, Pelvic Inflammatory Disease, Previous Pregnancies, Syphilis or Uterine Prolapse MUSCULOSKELETAL: Negative Musculoskeletal Disorders, Muscular Dystrophy, Myasthenia Gravis, Marfan's Syndrome, Bone Cancer, Arthritis, Rheumatoid Arthritis, Osteoporosis, Degenerative Disk Disease, Gout, Scoliosis, Carpal Tunnel Syndrome, Fibromyalgia, Fractures, Degenerative Joint Disease, Osteomyelitis or Poliovirus ENT: Negative Cataracts, Glaucoma, Blind, Retinal Detachment, Macular Degeneration, Ear Infection, Deafness, Head Trauma or Eye Prosthesis ENDOCRINE: Positive Diabetes Mellitus Type 2 and Hypoglycemia; Negative Endocrine Disorders, Diabetes Mellitus Type 1, Val's Syndrome, Salinas's Disease, Hyperthyroidism, Hypothyroidism, Parathyroid Disease, Pituitary Disease, Systemic Lupus Erythematosus, Syndrome of Inappropriate Antidiuretic Hormone (SIADH), Adrenal Disease or Graves' Disease HEMATOLOGIC: Negative Blood Disorders, Anemia, Leukemia, Hemophilia, Thalassemia, Sickle Cell Disease or Clotting Problems PSYCHO/SOCIAL: Positive Depression; Negative Psychiatric Problems, Schizophrenia, Recreational Drug Use, Bipolar Disorder, Anxiety, Behavior Problems, Self-Mutilation, Attention Deficit Disorder, Attention Deficit Hyperactivity Disorder, Depression, Post Traumatic Stress Disorder or Eating Disorder OTHER HISTORY: Positive Cancer and Breast Cancer; Negative Hospitalization, Autoimmune Disease, Down Syndrome, Autism, Developmental Delay, Shingles, Falls, Blood Transfusions, Blood Transfusion Reaction, Anesthesia Reactions, Organ Transplant, Chemotherapy, Radiation Therapy, Hyperbaric Therapy, MRSA, VRSA, Vancomycin-Resistant Enterococci, Human Immunodeficiency Virus (HIV), Chicken Pox, Measles, Mumps, Rubella (Serbian Measles), Pertussis, Clostridium Difficile, Cervical Cancer, Colorectal Cancer, Lung Cancer or Ovarian Cancer Family History FAMILY HISTORY: Positive Family Cardiac Disorders and Family Cancer; Negative Family Psychiatric Problems, Family Respiratory Disorders, Family Gastrointestinal Problems, Family Surgery or Family Anesthesia Reaction Surgical History SURGICAL: Negative Cardiac Surgery, Open Heart Surgery, Coronary Artery Bypass Graft, Valve Replacement, Vascular Surgery, Coronary Stent, Cardiac Catheterization, Pacemaker, Angiogram, Auto Implanted Cardiovert Defib, Carotid Endarterectomy, Endocrine Surgery, Thyroidectomy, Ear Surgery, Tympanostomy Tube, Eye Surgery, Nose Surgery, Oral Surgery, Tonsillectomy, Adenoidectomy, Cochlear Implant, Corneal Transplant, Throat Surgery, Abdominal Surgery, Tracheostomy, Gastric Bypass Surgery, Gastrostomy, Bowel Surgery, Nephrectomy, Joint Replacement, Amputation, Open Reduction Internal Fixation, Arthroscopy, Neurologic Surgery, Brain Shunt, Lumpectomy, Hysterectomy, Tubal Ligation, Section or Organ Transplant Social History SMOKING STATUS: Never smoker ED Exam Narrative Physical exam: GEN. APPEARANCE: The patient is alert awake oriented X-3 in no distress, lying down comfortably, does not look ill/toxic. Patient has good eye contact. Patient is cooperative. VITALS: All vitals were reviewed and the pulse ox is 97% on room air which is normal according to my interpretation. HEENT: Normocephalic, abrasion to the bridge of the nose small actively bleeding. Pupils are equal and reactive. Intact extraocular muscle movements, painless oral mucosa is moist. Patent Nares, no septal hematoma, no facial instability NECK: Supple, nontender, no thyromegaly, no meningismus, no JVD CHEST: Symmetrical, atraumatic, and with equal expansion , Nontender on palpation no deformity and no crepitus. CARDIOVASCULAR: Heart regular rhythm no murmur or gallop rub or extra beats. LUNGS: Clear to auscultation bilaterally with symmetrical chest rise. No laboring tachypnea or wheezing. No intercostal subcostal retraction. No rales and no rhonchi. ABDOMEN: Soft, flat, nontender to palpation, no guarding or rebound tenderness. There are no abnormal masses palpated. Active and normal bowel sounds. EXTREMITIES: Nontender. No edema. No cyanosis. Patient is able to move all 4 extremities well, with full ROM and good CSM. SKIN: Warm and dry, no jaundice or rashes noted. NEURO: Patient is KUMAR x 4, Cranial nerves II through XII grossly intact. There is no focal neurologic deficits noted. GCS is 15, PNS and SURVEYOR HELPER appear grossly intact. PSYCHIATRIC: Patient is in normal mood and affect. Course Quality Measures none Orders Category Date Time Status EKG (ED ONLY) *Do not use* NOW Care 02/01/25 23:[address] facial bones wo con Stat Exams 02/01/25 23:[address] head/brain wo con Stat Exams 02/01/25 23:56 Taken EKG (ED Only) Stat Exams 02/01/25 23:56 Ordered CBC Stat Lab 02/01/25 23:56 Completed CMP [Comprehensive Metabolic Panel] Stat Lab 02/01/25 23:56 Completed Troponin I Stat Lab 02/01/25 23:56 Completed UA, C/S IF [Urinalysis, C/S if Indicated] Stat Lab 02/02/25 02:31 Completed Urine Culture Stat Lab 02/02/25 02:31 Received cefTRIAXone [Rocephin] 1,000 mg Med 02/02/25 03:49 Discontinued Lidocaine 1% 20 ml [Xylocaine 1% 20 ML] 2.1 ml IM X1 Vital Signs Vital signs: Vital Signs Temperature 98.4 F 02/01/25 23:58 Pulse Rate 92 02/01/25 23:58 Respiratory Rate 17 02/01/25 23:58 Blood Pressure 138/70 H 02/01/25 23:58 Pulse Oximetry (%) 97 02/01/25 23:58 Oxygen Delivery Method Room Air 02/01/25 23:58 Dizziness MDM Narrative MDM Narrative:: Scribe Attestation: 02/02/25 - Pamela Mcclure am scribing for and in the presence of Dr. Melgar. Patient is a 59-year-old female to the emergency department after having had a fall after she stood up and felt lightheaded. Vital signs and exam as listed. Concern for acute intracranial injury, ACS arrhythmia electrolyte abnormality urinary tract infection among others. Ordered labs, CT brain, CT max face. Workup notable for urinary tract infection, antibiotics provided. CT brain and max face without any evidence of acute abnormalities however there are indeterminant age nasal bone fractures. Patient without any septal hematoma, GCS 15, no focal deficits, ambulating at baseline. Will provide patient with a dose of antibiotics, and sent home with a course of antibiotics. Patient discharged she is hemodynamically stable not distressed. All questions answered. Patient data External records reviewed:: [facility] previous records (Per chart review, patient was seen here on 12/29/24 for contusion of the left hand.) Clinical information provided by:: patient and family Social determinants that could affect healthcare access:: none Patient has the following chronic illnesses:: breast CA, HTN How is presenting disease/condition affected by chronic disease/condition?: uneffected by Evaluation data The following diagnostics were reviewed and interpreted by me:: lab results and radiology exam(s) Lab and/or radiology exams considered but not ordered:: none Interpretation Summary: CBC normal, CMP normal, Troponin normal, UA positive for UTI. [facility] Preliminary Report Draft Patient: JEANINE WYMAN [facility]. Record#: [id number] Birthdate: 1965 Age/Sex: 59 / F Location: [facility] Attending Dr: Ordering Physician: Date of Service: Procedure(s): Accession Number(s): cc: ~ CT scan of the head without intravenous contrast (axial sections with sagittal and coronal reformats) February 02, 2025 0225 hours Clinical History: Fall, head injury Comparison: No prior study is available for comparison. Findings: There is no evidence of intracranial hemorrhage, mass effect or midline shift. There are periventricular white matter hypodensities, compatible with chronic small vessel ischemia. Punctate calcified granuloma is noted in the right front al lobe. There is mild volume loss. The calvarium is intact. The mastoid air cells and the visualized paranasal sinuses are clear. There are nondisplaced bilateral nasal bone fractures, of indeterminate age. Impression: 1. No evidence of intracranial hemorrhage, midline shift or calvarial fracture. 2. Periventricular chronic small vessel ischemia and volume loss. 3. Nondisplaced bilateral nasal bone fractures, of indeterminate age. Suggest clinical correlation and follow up accordingly. Please also refer to report of maxillofacial CT. Report Electronically Signed By: Jevon Aiken 02/02/2025 3:03:26 AM [EST] Teler[facility] Preliminary Report Draft Patient: JEANINE WYMAN [facility]. Record#: [id number] Birthdate: 1965 Age/Sex: 59 / F Location: [facility] Attending Dr: Ordering Physician: Date of Service: Procedure(s): Accession Number(s): cc: ~ CT maxillofacial without intravenous contrast (axial sections with sagittal and coronal reformats). February 02, 2025 0225 hours Clinical History: fall, facial injury Comparison: No prior study is available for comparison. Findings: There are nondisplaced bilateral nasal bone fractures, of indeterminate age. The maxillary sinus and orbital starr are intact. No fluid levels are seen. No evidence of intraorbital hematoma, proptosis, globe injury or radiodense foreign body. The zygomatic arches and mandible are intact. The visualized soft tissues are unremarkable. Impression: Nondisplaced bilateral nasal bone fractures, of indeterminate age. Other findings as described above. Suggest clinical correlation and follow up accordingly. Report Electronically Signed By: Jevon Aiken 02/02/2025 3:04:42 AM [EST] Medications / Prescriptions Medications or Prescriptions considered but not ordered:: none Medication administrations:: Medication Administration History Discontinued Medications Ceftriaxone Sodium 1,000 mg/ (Lidocaine HCl 2.1 ml) 0 mg IM X1 ONE Stop: 02/02/25 03:50 see above Consultations Consultation(s) initiated? (list below): No Diagnosis Dizziness Differential Diagnosis: other (dehydration, UTI, ACS, arrhythmia, ICH) Most likely diagnosis given after review of the tests above:: see clinical impression below Admission Indicated Admission indicated?: not indicated Admission Request Was there a request for admission?: No Disposition Plan Disposition Plan: Discharge Discharge Attestation Discharge Attestation: The patient and all family members were given an opportunity to ask questions and understood the discharge instructions. Discharge instructions specifically effects, indications for sooner follow up or return to the emergency department, and the expected course of current diagnosis. Patient condition: Stable Discharge Plan Plan Patient Disposition: HOME (Self Care) Prescriptions/Referrals Prescriptions/Med Rec: No Action glipizide 10 MG tablet 10 mg PO BID Qty: 0 losartan 50 mg tablet 50 mg PO DAILY Patient Comments: TAKE 1 TABLET BY MOUTH ONCE DAILY buspirone 10 mg tablet 10 mg PO Q12H Patient Comments: TAKE 1 TABLET BY MOUTH TWICE DAILY metformin 1,000 mg tablet 1,000 mg PO BID Patient Comments: TAKE 1 TABLET BY MOUTH TWICE DAILY WITH MEALS Referrals: Uzair Diaz MD [Primary Care Provider] - In 1 week Problem List Clinical Impression: Syncope, Urinary tract infection Patient/Caregiver Discharge Instructions Education Materials: Understanding Urinary Tract ... Print Language: Nepali Stand Alone Forms: Milena Award Info., Patient Portal Info Letter
--- NOTE | 2025-02-02 03:03 | PRELIM_ITS ---
CT scan of the head without intravenous contrast (axial sections with sagittal and coronal reformats) February 02, 2025 0225 hours Clinical History: Fall, head injury Comparison: No prior study is available for comparison. Findings: There is no evidence of intracranial hemorrhage, mass effect or midline shift. There are periventricular white matter hypodensities, compatible with chronic small vessel ischemia. Punctate calcified granuloma is noted in the right frontal lobe. There is mild volume loss. The calvarium is intact. The mastoid air cells and the visualized paranasal sinuses are clear. There are nondisplaced bilateral nasal bone fractures, of indeterminate age. Impression: 1. No evidence of intracranial hemorrhage, midline shift or calvarial fracture. 2. Periventricular chronic small vessel ischemia and volume loss. 3. Nondisplaced bilateral nasal bone fractures, of indeterminate age. Suggest clinical correlation and follow up accordingly. Please also refer to report of maxillofacial CT. Report Electronically Signed By: Jevon Aiken 02/02/2025 3:03:26 AM [EST]
--- NOTE | 2025-02-02 03:05 | PRELIM_ITS ---
CT maxillofacial without intravenous contrast (axial sections with sagittal and coronal reformats). February 02, 2025 0225 hours Clinical History: fall, facial injury Comparison: No prior study is available for comparison. Findings: There are nondisplaced bilateral nasal bone fractures, of indeterminate age. The maxillary sinus and orbital starr are intact. No fluid levels are seen. No evidence of intraorbital hematoma, proptosis, globe injury or radiodense foreign body. The zygomatic arches and mandible are intact. The visualized soft tissues are unremarkable. Impression: Nondisplaced bilateral nasal bone fractures, of indeterminate age. Other findings as described above. Suggest clinical correlation and follow up accordingly. Report Electronically Signed By: Jevon Aiken 02/02/2025 3:04:42 AM [EST]
[2025-02-02 03:10] LABS: Collection Type, Urine Clean Catch
[2025-02-02 03:17] LABS: Amorphous Crystals,Urine Present (Absent); Bacteria,Urine 1+; Bilirubin,Urine Negative (Negative); Blood,Urine Negative (Negative); Clarity,Urine Turbid (Clear/Hazy); Color,Urine Lt-Yellow (Lt Yel-Yel); Culture Indicated,Urine Yes; Glucose, Urine Negative (Negative); Ketones,Urine Negative (Negative); Leukocyte Esterase,Urine Positive (Negative); Nitrite,Urine Positive (Negative); PH,Urine 5.5 (5.0-7.0); Protein,Urine Negative (Neg - Trace); RBC,Urine 3 /hpf (0-3); Specific Gravity,Urine 1.017 (1.001-1.035); Squamous Epithelial Cell,Urine 1 /hpf (0-5); Urobilinogen,Urine Negative mg/dL (0.0-1.0); WBC,Urine 7 /hpf (0-5)
[2025-02-02 04:10] VITALS: BP 120/78; PULSE 92; RESP 18; TEMP 36.7; O2SAT 98
[2025-02-02] MEDS: cefTRIAXone 1,000 MG, LIDOCAINE 1% 20 ML 2.1 ML IM (04:12)
== END 2025-02-02 04:48 | disposition home or self-care (01) ==
PROVIDERS: Physician Assistant; Emergency Provider Emergency Medicine; PCP Family Medicine
DX: S02.2XXA Fracture of nasal bones, initial encounter for closed fracture (principal); W19.XXXA Unspecified fall, initial encounter; Z90.12 Acquired absence of left breast and nipple; Z85.3 Personal history of malignant neoplasm of breast; I10 Essential (primary) hypertension; I67.82 Cerebral ischemia
CPT/HCPCS: 36415; 70450; 70486; 80053; 81001; 84484; 85025; 87077; 87086; 87186; 93005; 96372; 99284; J0696; J3490

== ENCOUNTER 2025-02-04 13:44 | Outpatient (RCR) | payer MEDICAID, SELFPAY ==
--- NOTE | 2025-02-04 15:37 | CTCCONSULT_ITS ---
[facility] [address] [place], [place] [address] Consultation Note Date: 02/04/2025 MR#: [id number] Name: JEANINE WYMAN : 1965 Dx: C50.412 Malignant neoplasm of upper-outer quadrant of left female breast Attending physician. Uzair Diaz MD Reason for consultation. 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 History of Present Illness: Patient is a 59-year-old lady who had palpable mass left breast for several months and had left breast ultrasound January 01, 2025 revealing 2.6 x 1.9 x 2.7 cm BI-RADS 4 suspicious for malignancy. Underwent biopsy revealing malignant squamoid and spindle cell consistent with metastatic carcinoma. Ki-67 high at 70 to 80% triple negative ER/HI and HER2/shahrzad. On 01/27/2025 patient had left total mastectomy [id number] performed by Dr. Anderson at [facility]. All margins are negative. 3 lymph nodes 1 sentinel 2 nonsentinel negative for mets. 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 This was reviewed by [facility] who concurred that this was consistent with metaplastic carcinoma. Patient now referred to the cancer treatment center Past Medical History: History of diabetes high blood pressure Meds. Losartan: Glipizide metformin hydrocodone cephalexin Allergies none to meds Family history. Denies family history of cancer Social History: Togolese-speaking denies smoking drinking 7 pregnancies 7 births menarche age 16 Review of Systems: Has some discomfort in the area of the surgerized area left chest wall Physical Exam: General: Adequately nourished lady no acute distress HEENT: Atraumatic no cephalic extraocular was intact no oral lesions no cervical or supraclavicular adenopathy CV: Left breast surgically absent with virgilio still in place right breast no masses ABD: Soft no organomegaly or tenderness EXT: No signs of clubbing or edema Assessment:#1. 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 Minor component of DCIS #2. Total mastectomy and axillary exploration performed by Dr. Anderson 01/27/2025. Surgical margins negative #3. ER/HI negative HER2/shahrzad negative #4. Apparently right breast ultrasound has not been performed which I will order today. #5. Known to be aggressive shall w order PET scan for staging purposes #6. I have asked Dr. Moser pathologist to do PD-L1 studies on path sample as immunotherapy reportedly has been useful in metaplastic breast cases. #7. Dr. Kahn medical oncologist to see patient. #8. I will see the patient again in 2 months time. Thank you for allowing me to evaluate this patient Cc: MD Uzair Corley MD Electronically signed by: Tommy Sims MD, DABR 02/04/2025 3:35 PM
== END 2025-03-05 23:59 | disposition home or self-care (01) ==
LOC: SCTC 13:44
PROVIDERS: PCP Family Medicine; Referring Provider Family Medicine; Visit Provider Radiology Therapeutic Radiology
DX: C50.412 Malignant neoplasm of upper-outer quadrant of left female breast (principal); Z17.421 Hormone receptor negative with human epidermal growth factor receptor 2 negative status; Z90.12 Acquired absence of left breast and nipple
CPT/HCPCS: 99213; G0463

== ENCOUNTER → 2025-03-02 | Outpatient (CLI) | payer MEDICAID, SELFPAY ==
--- NOTE | 2025-03-02 13:00 | XR_ITS ---
Examination: Breast ultrasound, unilateral, right Date and time of exam: March 02, 2025 1330 hours INDICATIONS: Left breast cancer diagnosis mastectomy January 27, 2025 Technique: Real-time carrasco scale ultrasonographic imaging performed right breast including all 4 quadrants as well as nipple retroareolar and axillary region. Findings: 6:00 cyst 4 x 3 mm 9:00 intramammary lymph node 5 x 6 mm Axillary lymph node 2.9 cm, the largest of multiple nodes IMPRESSION: BI-RADS Category 3: Probably benign findings One additional 6 month right breast sonogram follow-up recommended to document stability of multiple right axillary lymph nodes
== END | disposition home or self-care (01) ==
PROVIDERS: PCP Family Medicine; Referring Provider Radiology Therapeutic Radiology; Visit Provider Radiology Therapeutic Radiology
DX: C50.412 Malignant neoplasm of upper-outer quadrant of left female breast (principal)
CPT/HCPCS: 76641

== ENCOUNTER → 2025-03-10 | Outpatient (CLI) | payer MEDICAID, SELFPAY ==
--- NOTE | 2025-03-10 14:45 | XR_ITS ---
EXAMINATION: PET/CT FUSION SKULL TO THIGH EXAM DATE AND TIME: March 10, 2025, 1519 hours INDICATIONS: Diagnosis breast cancer, prior to staging, mastectomy January 27, 2025 CTDI:vol (mGy) 4.10 DLP: (mGycm) 374.58 PROCEDURE: 14.4 mCi FDG was administered intravenously To allow for distribution and uptake of radiotracer, the patient was allowed to rest quietly in a shielded room. Imaging was performed on an integrated 16-slice PET/CT scanner, with scanning from the skull base to the mid thigh. Serum blood glucose at the time of the injection was measured 85 mg/dL. CT scanning was performed without oral or intravenous contrast material. FINDINGS: Head and Neck: There is no shaquille hypermetabolism in the neck. The visualized portions of the brain are normal in appearance on CT. Chest: Left mastectomy with mildly hypermetabolic post surgery change left chest Abdomen and Pelvis: There is no shaquille hypermetabolism in retroperitoneal or pelvic chains. The spleen is normal in size and FDG avidity. Musculoskeletal: Marrow uptake is within normal range. IMPRESSION: No findings of metastatic disease
== END | disposition home or self-care (01) ==
LOC: CDIM 14:25
PROVIDERS: PCP Family Medicine; Referring Provider Radiology Therapeutic Radiology; Visit Provider Radiology Therapeutic Radiology
DX: C50.412 Malignant neoplasm of upper-outer quadrant of left female breast (principal)
CPT/HCPCS: 78815; A9552

== ENCOUNTER 2025-04-02 09:46 | Outpatient (RCR) | payer MEDICAID, SELFPAY ==
--- NOTE | 2025-04-06 23:06 | CTCFLWUP_ITS ---
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 Patient already had a left mastectomy margins -3 lymph nodes were removed and were negative for cancer I do not have report available. Patient was found to have T2 lesion with a high-grade and high Ki-67. Patient is here to discuss chemotherapy options. Patient is very reluctant to get any treatment. 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 Tobacco?Use:?Denies ETOH?Use:?Denies Drug?Note:?Denies Social History Note:?Pt and her live with dtr GALVANIZER ZINC HISTORY: Menarche?-?Age:?11 Menopause:?2018 Hormone?Use:?DENIES :?7 Live?Births:?7 Age?1st?:?16 MEDICATIONS: 1. busPIRone - 10 mg 1 tab Daily 2. glipizide - 10 mg Daily 3. losartan - 50 mg Daily 4. metformin - 1,000 mg Twice a Day 5. [place] - As directed Medications Last Reconciled by Shayy Ghosh RN on 04/02/2025 ALLERGIES: No Known Drug Allergies REVIEW OF SYSTEMS: A complete 14-point review of systems was performed and is negative except as noted in interval history. PHYSICAL EXAMINATION: VITAL SIGNS: Temperature?97.8, B/P?169/80, Height?60?inches, Oxygen?Saturation?98% Weight?136?lbs PAIN: 2 - Mild pain ECOG Performance Status: 1 - Symptomatic; ambulatory; restricted in strenuous activity GENERAL APPEARANCE: Appears well, in no apparent distress, appropriately interactive. HEENT: Normocephalic, no temporal wasting, normal conjunctiva, no scleral icterus, normal hearing, lips without lesions, neck normal range of motion. CARDIOVASCULAR: Not assessed. PULMONARY: Normal respiratory effort, no respiratory distress or use of accessory muscles, speaking in full sentences, no tachypnea. EXTREMITIES: No pedal edema or cyanosis. SKIN: Normal skin appearance. NEUROLOGIC: Alert and oriented x4. PSHYCHIATRIC: Appropriate affect, mood normal, behavior normal, intact thought and speech. LABORATORY DATA: I have personally reviewed and interpreted each of the patient?s relevant lab tests, abnormal findings are below: Date 01/28/25 02/02/25 ??WHITE?BLOOD?COUNT?(Thou/mm3) 9.8 8.9 ??RED?BLOOD?COUNT?(Miln/mm3) 4.13 4.13 ??HEMOGLOBIN?(gm/dl) 12.3 12.4 ??HEMATOCRIT?(%) 34.6?L 35.6?L ??PLATELET?COUNT?(Thou/mm3) 260 290 ??NEUTROPHILS?%,?AUTO?(%) 66 48 ??LYMPH?%,?AUTO?(%) 23 38 ??NEUTROPHILS,?AUTO?(Thou/mm3) 6.5 4.2 ??GLUCOSE,RANDOM?(mg/dL) ? 151?H ??BLOOD?UREA?NITROGEN?(mg/dL) ? 17 ??CREATININE?(mg/dL) ? 0.70 ??SODIUM?(mmol/L) 141 143 ??POTASSIUM?(mmol/L) 4.2 4.0 ??CHLORIDE?(mmol/L) 107 110?H ??AST/SGOT?(Unit/L) ? 21 ??ALT/SGPT?(Unit/L) ? 13 ??ALKALINE?PHOSPHATASE?(Unit/L) ? 65 ??BILIRUBIN,?TOTAL?(mg/dL) ? 0.6 ??PROTEIN?TOTAL?(gm/dl) ? 6.8 ??ALBUMIN,?SERUM?(gm/dl) ? 4.0 ??GLOBULIN?(gm/dl) ? 2.8 ??ALBUMIN/GLOBULIN?RATIO ? 1.4 ??CALCIUM,?SERUM?(mg/dL) ? 9.3 ??CALCIUM?SERUM?(CORRECTED)?(mg/dL) ? 9.3 ASSESSMENT/PLAN: Metaplastic breast cancer at least stage II I do not have final report Advised chemotherapy Port catheter placement Will start on chemo ELYSE Will get Caris NGS panel ORDERS: Order # Description [id number] Comprehensive Metabolic Panel - 12 + CBC with Auto Diff [id number] [facility] Hereditary Cancer Test + [id number] bl test/ [facility] test:[id number] Follow Up 2 Months [id number] Cardiac ECHO [id number] Port Placement [id number] [facility] CDX + PD-L1 staining RETURN TO CLINIC: I reviewed the diagnosis, prognosis, and recommended treatment/procedure options with the patient (and/or their legal client care representative), including the potential benefits, risks, side effects and alternative therapies. We also discussed the option of no treatment and the possibility of clinical trial participation, if applicable. All questions were addressed, and they demonstrated understanding. They provided informed consent to proceed with the proposed plan of care. BILLING AND COMPLIANCE: I reviewed external records from providers outside my specialty as summarized above. I spent a total of 50 minutes on this patient?s care on the day of their visit excluding time spent related to any billed procedures. This time includes time spent with the patient as well as time spent documenting in the medical record, reviewing patients records and tests, obtaining history, placing orders, communicating with other healthcare professionals, counseling the patient, family or caregiver, and/or care coordination for the diagnoses above. Electronically Signed by: Asad Kahn MD T: 11:04 PM CC: PCP: Asad Kahn Referring: Asad Kahn This document was completed utilizing speech recognition software. Grammatical errors, random word insertions, pronoun errors, and incomplete sentences are an occasional consequence of this system due to software limitations, ambient noise, and hardware issues. Any formal questions or concerns about the content, text or information contained within the body of this dictation should be directly addressed to the provider for clarification.
== END 2025-04-05 23:59 | disposition home or self-care (01) ==
LOC: SCTC 09:46
PROVIDERS: PCP Family Medicine; Referring Provider Internal Medicine Hematology & Oncology; Visit Provider Internal Medicine Hematology & Oncology
DX: C50.412 Malignant neoplasm of upper-outer quadrant of left female breast (principal); Z17.421 Hormone receptor negative with human epidermal growth factor receptor 2 negative status; Z90.12 Acquired absence of left breast and nipple
CPT/HCPCS: 99213; G0463

== ENCOUNTER 2025-04-09 09:21 | Outpatient (RCR) | payer MEDICAID, SELFPAY ==
--- NOTE | 2025-04-09 10:17 | CTCFLWUP_ITS ---
[facility] [address] [place], [place] [address] FOLLOW-UP NOTE Date: 04/09/2025 MR#: [id number] Name: JEANINE WYMAN : 1965 Dx: C50.412 Malignant neoplasm of upper-outer quadrant of left female breast Identification. Patient with diagnosis of metaplastic carcinoma left breast stage IIa pT2 SN pN0 status post total mastectomy axillary exploration 01/07/2025. Triple negative. PET scan 03/10/2025 showed no findings of met disease. Patient scheduled for chemo Under Dr. Hinton's direction. I told patient that I can see her as needed in the future, but no specific follow-up date for myself was given to patient. Electronically signed by: Tommy Sims M.D. 04/09/2025 10:15 AM
== END 2025-05-05 23:59 | disposition home or self-care (01) ==
LOC: SCTC 09:21
PROVIDERS: PCP Family Medicine; Referring Provider Family Medicine; Visit Provider Radiology Therapeutic Radiology
DX: C50.412 Malignant neoplasm of upper-outer quadrant of left female breast (principal); Z17.421 Hormone receptor negative with human epidermal growth factor receptor 2 negative status; Z90.12 Acquired absence of left breast and nipple
CPT/HCPCS: 99212; G0463

== ENCOUNTER 2025-05-15 10:22 | Outpatient (RCR) | payer MEDICAID, SELFPAY | END 2025-06-05 23:59 | disposition home or self-care (01) | LOC: SCTC 10:22 | PROVIDERS: PCP Family Medicine; Referring Provider Family Medicine; Visit Provider Internal Medicine Hematology & Oncology | DX: C50.412 Malignant neoplasm of upper-outer quadrant of left female breast (principal); Z17.421 Hormone receptor negative with human epidermal growth factor receptor 2 negative status; Z90.12 Acquired absence of left breast and nipple ==

== ENCOUNTER → 2025-05-18 | Outpatient (CLI) | payer MEDICAID, SELFPAY ==
[2025-05-18 11:20] LABS: Misc Send Out* See Sep Rpt
[2025-05-18 12:12] LABS: Basophils # (Auto) 0.1 Thou/mm3 (0.0-0.2); Basophils % (Auto) 1 % (0-2.5); Eosinophils # (Auto) 0.4 Thou/mm3 (0.0-0.5); Eosinophils % (Auto) 4 % (0-10); Hematocrit 38.3 % (36.0-46.0); Hemoglobin 12.7 g/dL (12.0-16.0); Immature Granulocytes Auto 0.03 Thou/mm3 (0.00-0.00); Lymphocytes # (Auto) 3.2 Thou/mm3 (1.0-4.8); Lymphocytes % (Auto) 35 % (10-50); Mean Corpuscular HGB Conc 33.2 g/dl (31.0-37.0); Mean Corpuscular Hemoglobin 29.9 pg (25.0-35.0); Mean Corpuscular Volume 90 fL (80-100); Monocytes # (Auto) 0.6 Thou/mm3 (0.0-0.8); Monocytes % (Auto) 6 % (0-12); Neutrophils # (Auto) 5.0 Thou/mm3 (1.8-7.7); Neutrophils % (Auto) 54 % (37-80); Nucleated Red Blood Cell # 0.00 Thou/mm3 (0.00-0.00); Nucleated Red Blood Cell % 0 /100 WBC (0); Platelet Count 307 Thou/mm3 (140-440); RDW Standard Deviation 43.0 fL (36.4-46.3); Red Blood Count 4.25 Miln/mm3 (4.00-5.20); White Blood Count 9.3 Thou/mm3 (3.6-11.0)
[2025-05-18 12:33] LABS: Alanine Aminotransferase 13 U/L (10-49); Albumin, Serum 4.3 gm/dL (3.4-4.8); Albumin/Globulin Ratio 1.5 (1.2-2.2); Alkaline Phosphatase 78 U/L (46-116); Anion Gap 9 (7-16); Aspartate Amino Transferase < 8 U/L (0-34); BUN/Creatinine Ratio 31 Ratio (12-20); Bilirubin,Total 0.8 mg/dL (0.3-1.2); Blood Urea Nitrogen 22 mg/dL (9-23); Calcium 9.5 mg/dL (8.3-10.6); Calcium (Corrected) 9.5 mg/dL (8.5-10.1); Carbon Dioxide 26.9 mMol/L (20.0-31.0); Chloride 108 mMol/L (98-107); Creatinine (Component) 0.7 mg/dL (0.6-1.3); Globulin 2.9 gm/dL (2.3-3.5); Glucose 117 mg/dL (74-106); Osmolality,Calculated 291 (275-295); Potassium 4.2 mMol/L (3.4-5.1); Sodium 144 mMol/L (136-145); Total Protein 7.2 gm/dL (5.7-8.2); eGFR > 60 See Note
== END | disposition home or self-care (01) ==
PROVIDERS: PCP Internal Medicine Hematology & Oncology; Referring Provider Internal Medicine Hematology & Oncology; Visit Provider Internal Medicine Hematology & Oncology
DX: C50.412 Malignant neoplasm of upper-outer quadrant of left female breast (principal)
CPT/HCPCS: 36415; 80053; 85025

== ENCOUNTER → 2025-05-25 | Outpatient (CLI) | payer MEDICAID, SELFPAY ==
--- NOTE | 2025-05-25 11:30 | ECHO_ITS ---
Transthoracic Echo Report Ht (in): Wt (lb): 154 Exam Location: Echo Lab Status: Preadmit Pre Sales Systems Engineer: Monique Hinojosa Indications: Procedure Performed: BP: / HR: MEASUREMENTS (Male / Female) Normal Values 2D ECHO LV Diastolic Diameter PLAX 3.5 cm 4.2 - 5.9 / 3.9 - 5.3 cm LV Systolic Diameter PLAX 2.6 cm IVS Diastolic Thickness 0.9 cm 0.6 - 1.0 / 0.6 - 0.9 cm LVPW Diastolic Thickness 0.8 cm 0.6 - 1.0 / 0.6 - 0.9 cm LV Relative Wall Thickness 0.5 LVOT Diameter 1.6 cm DOPPLER AV Peak Velocity 112.0 cm/s AV Peak Gradient 5.0 mmHg AV Mean Gradient 3.0 mmHg AV Velocity Time Integral 25.4 cm LVOT Peak Velocity 105.0 cm/s LVOT Peak Gradient 4.4 mmHg LVOT Velocity Time Integral 28.3 cm AV Area Cont Eq vti 2.2 cm? AV Area Cont Eq pk 1.9 cm? MV Area PHT 4.6 cm? MR Peak Velocity 407.0 cm/s MR Peak Gradient 66.3 mmHg Mitral E Point Velocity 79.1 cm/s Mitral A Point Velocity 112.0 cm/s Mitral E to A Ratio 0.7 LV E' Lateral Velocity 7.7 cm/s Mitral E to LV E' Lateral Ratio 10.2 LV E' Septal Velocity 6.5 cm/s Mitral E to LV E' Septal Ratio 12.1 PV Peak Velocity 109.0 cm/s PV Peak Gradient 4.8 mmHg FINDINGS Left Ventricle Normal left ventricular size, wall thickness, systolic function with no obvious regional wall motion abnormalities. There is grade I diastolic dysfunction of the left ventricle (impaired relaxation pattern). The ejection fraction is visually estimated at 65 %. Right Ventricle The right ventricle is normal in size and systolic function. Left Atrium The left atrium is normal by two-dimensional, color flow and Doppler imaging with no structural abnormalities, no thrombus formation present. Right Atrium The right atrium is normal by two-dimensional imaging, color flow and Doppler imaging with no structural abnormalities, no thrombus formation present. Atrial Septum The interatrial septum appears normal with no evidence of a shunt. Aorta The aorta is normal by two-dimensional, color flow and Doppler interrogation. Mitral Valve The mitral valve is normal by two-dimensional, color flow and Doppler interrogation. [id number] mitral regurgitation. Aortic Valve The aortic valve is trileaflet and normal by two-dimensional, color flow and Doppler interrogation. There is no significant aortic valve regurgitation. Tricuspid Valve The tricuspid valve is normal by two-dimensional, color flow and Doppler interrogation. There is trace tricuspid valve regurgitation. Pulmonic Valve The pulmonic valve is not well visualized. There is no significant pulmonic valve regurgitation. Vessels The pulmonary artery appears normal. The inferior vena cava pulmonary and hepatic veins appear normal. Pericardium The pericardium is normal by two-dimensional imaging. There is no significant pericardial effusion. CONCLUSIONS Indication: Malignant neoplasm of upper - outer quadrant of left female breast. Normal LV size, wall thickness. Estimated EF at 65 %. The RV is normal in size and systolic function. Mild MR. Trace TR. Marivel Cadena (Electronically Signed) Final Date: 25 May 2025 19:28
== END | disposition home or self-care (01) ==
PROVIDERS: PCP Family Medicine; Referring Provider Internal Medicine Hematology & Oncology; Visit Provider Internal Medicine Hematology & Oncology
DX: I08.1 Rheumatic disorders of both mitral and tricuspid valves (principal); C50.412 Malignant neoplasm of upper-outer quadrant of left female breast
CPT/HCPCS: 93306

== ENCOUNTER 2025-06-15 06:10 | Day surgery (SDC) | payer MEDICAID, SELFPAY ==
[2025-06-11 08:01] VITALS: BMI 28.3
[2025-06-11 09:19] LABS: Basophils # (Auto) 0.0 Thou/mm3 (0.0-0.2); Basophils % (Auto) 0 % (0-2.5); Eosinophils # (Auto) 0.6 Thou/mm3 (0.0-0.5); Eosinophils % (Auto) 6 % (0-10); Hematocrit 37.5 % (36.0-46.0); Hemoglobin 12.7 g/dL (12.0-16.0); Immature Granulocytes Auto 0.03 Thou/mm3 (0.00-0.00); Lymphocytes # (Auto) 3.1 Thou/mm3 (1.0-4.8); Lymphocytes % (Auto) 30 % (10-50); Mean Corpuscular HGB Conc 33.9 g/dl (31.0-37.0); Mean Corpuscular Hemoglobin 29.7 pg (25.0-35.0); Mean Corpuscular Volume 88 fL (80-100); Monocytes # (Auto) 0.8 Thou/mm3 (0.0-0.8); Monocytes % (Auto) 7 % (0-12); Neutrophils # (Auto) 5.9 Thou/mm3 (1.8-7.7); Neutrophils % (Auto) 56 % (37-80); Nucleated Red Blood Cell # 0.00 Thou/mm3 (0.00-0.00); Nucleated Red Blood Cell % 0 /100 WBC (0); Platelet Count 307 Thou/mm3 (140-440); RDW Standard Deviation 40.8 fL (36.4-46.3); Red Blood Count 4.27 Miln/mm3 (4.00-5.20); White Blood Count 10.4 Thou/mm3 (3.6-11.0)
[2025-06-11 09:35] LABS: Alanine Aminotransferase 14 U/L (10-49); Albumin, Serum 4.6 gm/dL (3.4-4.8); Albumin/Globulin Ratio 1.6 (1.2-2.2); Alkaline Phosphatase 79 U/L (46-116); Anion Gap 8 (7-16); Aspartate Amino Transferase 21 U/L (0-34); BUN/Creatinine Ratio 25 Ratio (12-20); Bilirubin,Total 1.0 mg/dL (0.3-1.2); Blood Urea Nitrogen 20 mg/dL (9-23); Calcium 9.5 mg/dL (8.3-10.6); Calcium (Corrected) 9.5 mg/dL (8.5-10.1); Carbon Dioxide 25.6 mMol/L (20.0-31.0); Chloride 109 mMol/L (98-107); Creatinine (Component) 0.8 mg/dL (0.6-1.3); Estimated Creatinine Clearance 62.6 mL/min (>60); Globulin 2.8 gm/dL (2.3-3.5); Glucose 128 mg/dL (74-106); Osmolality,Calculated 289 (275-295); Potassium 4.3 mMol/L (3.4-5.1); Sodium 143 mMol/L (136-145); Total Protein 7.4 gm/dL (5.7-8.2); eGFR > 60 See Note
[2025-06-11 09:51] LABS: INR 0.9 (0.9-1.3); Partial Thromboplastin Time 27.2 Seconds (22.0-36.0); Prothrombin Time 10.0 Seconds (9.0-12.2)
[2025-06-15] VITALS (8 sets, daily range): BP systolic 172–185; BP diastolic 82–91; PULSE 91–98; RESP 12–24; TEMP 36.1–36.2; O2SAT 95–99; BMI 28.5
--- NOTE | 2025-06-15 07:28 | SUR.PREOP ---
Patient expressed gratitude for prayer before their procedure.
[2025-06-15] MEDS: MIDAZOLAM INJ 1 MG/ML VIAL 2 ML 2 MG IVP (07:54)
--- NOTE | 2025-06-15 08:00 | XR_ITS ---
EXAMINATION: AP chest single view TECHNIQUE: Supine AP portable chest single view Date and time: June 15, 2025, 0849 hours INDICATION: Port-A-Cath insertion today. FINDINGS: Right subclavian Port-A-Cath line right atrium No pneumothorax IMPRESSION: Right subclavian Port-A-Cath tip right atrium EXAMINATION: AP chest single view TECHNIQUE: AP portable supine chest single view Date and time: June 15, 2025, 0856 hours INDICATION: Port-A-Cath insertion today. FINDINGS: Right subclavian Port-A-Cath tip right atrium No pneumothorax
--- NOTE | 2025-06-15 09:27 | SUR.PHASEI ---
pt received from OR in recovery bay 5. pt alseep but responds to voice, breathing unlabored on 4l nc. v/s stable. pt dressing to right upper chest cdi. report received from Dr. Chaudhry and Agapito COLE.
--- NOTE | 2025-06-15 09:34 | PD.SUROPNT ---
Date of Procedure 06/15/25 Pre Op Diagnosis Metaplastic carcinoma of the left breast requiring chemotherapy Stricture of veins Post Op Diagnosis Same Procedure Insertion of a Port-A-Cath to the right subclavian vein Findings Patient was found to have patent right subclavian which was used for Port-A-Cath but the low-profile from [employer] Procedure Description After the patient was brought to the operating room he was placed in supine position. Site-Rite ultrasound was used to identify the right subclavian vein and I chose this for insertion of the Port-A-Cath. After the patient's chest and neck were prepped with chloreprep solution and draped I used a mini stick to get into the left subclavian vein. Then I passed a small guidewire measuring 0.018 inch in diameter into the vein. Then this was switched over to a catheter to accommodate larger guidewire measuring 0.035 inches in diameter which was basically a J-wire. Then I used a 9 Ivorian valved vessel dilator over the guidewire which was then pulled out. Then I introduced a 8 Ivorian polyurethane catheter from the [employer] and positioned it on the distal part of the superior vena cava. An x-ray was obtained to confirm the position of the tip. The tip was about 18 cm from the entry site. Then I made a small pocket 5 cm's below the entry site on the right chest below the clavicle to accommodate the port after injecting local anesthesia with 1% Xylocaine. Then I tunneled the polyurethane catheter from the entry site to this pocket in the chest wall and I connected it to low-profile Dignity port from [facility] using a catheter lock. Excellent blood return was obtained at the end of the procedure and this was flushed with heparinized saline. Then the port was attached to the chest wall muscle using 0 Vicryl sutures. Subcutaneous tissues was closed with 3-0 chromic and the skin by 4-0 Monocryl subcuticular stitches. Dressing was applied with Adaptic and 4 x 4 and the patient tolerated the procedure well and left operating room in stable condition. Anesthesia other Implants Implants comments: Low-profile port called dignity Pathology / specimen None Estimated Blood Loss 20 Surgeon Vaishali Gonzales MD Surgical Staff Operation Date: 06/15/25 08:00 Case Staff Anesthesiologist: Rafat Chaudhry
[2025-06-15] MEDS: hydrALAZINE INJ 20 MG/ML VIAL 5 MG IVP (09:52)
--- NOTE | 2025-06-15 10:43 | SUR.PHASEII ---
pt awake and alert, breathing unlabored on room air. v/s stable. pt dressing to right upper chest cdi. pt able to ambulate to wheelchair with steady gait. d/c instructions given with Sigifredo in room using human resources office manager Kaye cardenas, all questions answered. pt d/c via wheelchair with all belongings.
== END 2025-06-15 10:43 | disposition home or self-care (01) ==
PROVIDERS: PCP Family Medicine; Referring Provider Surgery; Visit Provider Surgery
PROC: (CPT 36561; principal; 2025-06-15 08:00)
DX: C50.912 Malignant neoplasm of unspecified site of left female breast (principal); I87.1 Compression of vein; I10 Essential (primary) hypertension; E11.9 Type 2 diabetes mellitus without complications; Z79.84 Long term (current) use of oral hypoglycemic drugs; Z79.4 Long term (current) use of insulin; Z79.899 Other long term (current) drug therapy
CPT/HCPCS: 36561; 36415; 71046; 80053; 85025; 85610; 85730; A4649; C1788; C1894; J0131; J0360; J1100; J1644; J1885; J2250; J2371; J2405; J2704; J3010; J3490

== ENCOUNTER 2025-06-18 10:40 | Outpatient (RCR) | payer MEDICAID, SELFPAY ==
--- NOTE | 2025-06-17 00:13 | CTCFLWUP_ITS ---
Patient: JEANINE WYMAN : 1965 Page 2 of 2 FOLLOW UP NOTE DATE OF SERVICE: 06/09/2025 NAME: JEANINE WYMAN ACCOUNT: [id number] : 1965 AGE: 59 INTERVAL HISTORY: Patient is yet to start her chemotherapy. Chemotherapy has been approved by insurance. Patient still have not had her port catheter patient had PET CT scan in March and was negative for any metastatic disease. ONCOLOGY HISTORY:?[facility] Hx? 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 Patient already had a left mastectomy margins -3 lymph nodes were removed and were negative for cancer I do not have report available. Patient was found to have T2 lesion with a high-grade and high Ki-67. Patient is here to discuss chemotherapy options. Patient is very reluctant to get any treatment. 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 busPIRone - 10 mg 1 tab Daily 2. Compazine - 5 mg 5 mg Daily 3. glipizide - 10 mg Daily 4. losartan - 50 mg Daily 5. metformin - 1,000 mg Twice a Day 6. [place] - As directed 7. ondansetron - 8 mg 8 mg Daily?Palabra Meds? Medications Last Reconciled by Nat Guerin MD on 06/09/2025 ALLERGIES: No Known Drug Allergies REVIEW OF SYSTEMS: A complete 14-point review of systems was performed and is negative except as noted in interval history. PHYSICAL EXAMINATION:?[facility] PE? VITAL SIGNS: Temperature?98.3, B/P?149/84, Oxygen?Saturation?97% Weight?145?lbs (Change?since?05/15/25:?2.6?lbs) PAIN: 0 - No pain ECOG Performance Status: 0 - Asymptomatic and fully active GENERAL APPEARANCE: Appears well, in no apparent distress, appropriately interactive. HEENT: Normocephalic, no temporal wasting, normal conjunctiva, no scleral icterus, normal hearing, lips without lesions, neck normal range of motion. CARDIOVASCULAR: Not assessed. PULMONARY: Normal respiratory effort, no respiratory distress or use of accessory muscles, speaking in full sentences, no tachypnea. EXTREMITIES: No pedal edema or cyanosis. SKIN: Normal skin appearance. NEUROLOGIC: Alert and oriented x4. PSHYCHIATRIC: Appropriate affect, mood normal, behavior normal, intact thought and speech. LABORATORY DATA: I have personally reviewed and interpreted each of the patient?s relevant lab tests, abnormal findings are below: Date 05/18/25 06/11/25 ??WHITE?BLOOD?COUNT?(Thou/mm3) 9.3 10.4 ??RED?BLOOD?COUNT?(Miln/mm3) 4.25 4.27 ??HEMOGLOBIN?(gm/dl) 12.7 12.7 ??HEMATOCRIT?(%) 38.3 37.5 ??PLATELET?COUNT?(Thou/mm3) 307 307 ??NEUTROPHILS?%,?AUTO?(%) 54 56 ??LYMPH?%,?AUTO?(%) 35 30 ??NEUTROPHILS,?AUTO?(Thou/mm3) 5.0 5.9 ??GLUCOSE,RANDOM?(mg/dL) 117?H 128?H ??BLOOD?UREA?NITROGEN?(mg/dL) 22 20 ??CREATININE?(mg/dL) 0.70 0.80 ??SODIUM?(mmol/L) 144 143 ??POTASSIUM?(mmol/L) 4.2 4.3 ??CHLORIDE?(mmol/L) 108?H 109?H ??CrCl?(CandG)?(ml/min) 73.60 64.95 ??AST/SGOT?(Unit/L) <?8 21 ??ALT/SGPT?(Unit/L) 13 14 ??ALKALINE?PHOSPHATASE?(Unit/L) 78 79 ??BILIRUBIN,?TOTAL?(mg/dL) 0.8 1.0 ??PROTEIN?TOTAL?(gm/dl) 7.2 7.4 ??ALBUMIN,?SERUM?(gm/dl) 4.3 4.6 ??GLOBULIN?(gm/dl) 2.9 2.8 ??ALBUMIN/GLOBULIN?RATIO 1.5 1.6 ??CALCIUM,?SERUM?(mg/dL) 9.5 9.5 ??CALCIUM?SERUM?(CORRECTED)?(mg/dL) 9.5 9.5 ASSESSMENT/PLAN:?Davi Kahn Assessment/Plan? Metaplastic breast cancer at least stage II Advised chemotherapy once port catheter is placed BRCA is negative If patient do not get chemotherapy then can start on ribociclib and antiendocrine therapy. Advised to start chemo ELYSE ORDERS: Order # Description [id number] [facility] Hereditary Cancer Test [id number] Comprehensive Metabolic Panel - 12 + CBC with Auto Diff [id number] + CA 15-3 [id number] MRI + Brain + With Contrast [id number] Follow Up [id number] Scan + Chest + Abdomen and Pelvis + With Contrast RETURN TO CLINIC: I reviewed the diagnosis, prognosis, and recommended treatment/procedure options with the patient (and/or their legal member services representative), including the potential benefits, risks, side effects and alternative therapies. We also discussed the option of no treatment and the possibility of clinical trial participation, if applicable. All questions were addressed, and they demonstrated understanding. They provided informed consent to proceed with the proposed plan of care. BILLING AND COMPLIANCE: I reviewed external records from providers outside my specialty as summarized above. I spent a total of 50 minutes on this patient?s care on the day of their visit excluding time spent related to any billed procedures. This time includes time spent with the patient as well as time spent documenting in the medical record, reviewing patients records and tests, obtaining history, placing orders, communicating with other healthcare professionals, counseling the patient, family or caregiver, and/or care coordination for the diagnoses above. Electronically Signed by: Asad Kahn MD T: 12:11 AM CC: PCP: Uzair Diaz Referring: Uzair Diaz This document was completed utilizing speech recognition software. Grammatical errors, random word insertions, pronoun errors, and incomplete sentences are an occasional consequence of this system due to software limitations, ambient noise, and hardware issues. Any formal questions or concerns about the content, text or information contained within the body of this dictation should be directly addressed to the provider for clarification.
[2025-06-17 09:44] LABS: Basophils # (Auto) 0.1 Thou/mm3 (0.0-0.2); Basophils % (Auto) 1 % (0-2.5); Eosinophils # (Auto) 0.5 Thou/mm3 (0.0-0.5); Eosinophils % (Auto) 6 % (0-10); Hematocrit 32.7 % (36.0-46.0); Hemoglobin 11.0 g/dL (12.0-16.0); Immature Granulocytes Auto 0.03 Thou/mm3 (0.00-0.00); Lymphocytes # (Auto) 3.4 Thou/mm3 (1.0-4.8); Lymphocytes % (Auto) 40 % (10-50); Mean Corpuscular HGB Conc 33.6 g/dl (31.0-37.0); Mean Corpuscular Hemoglobin 29.6 pg (25.0-35.0); Mean Corpuscular Volume 88 fL (80-100); Monocytes # (Auto) 0.7 Thou/mm3 (0.0-0.8); Monocytes % (Auto) 9 % (0-12); Neutrophils # (Auto) 3.7 Thou/mm3 (1.8-7.7); Neutrophils % (Auto) 44 % (37-80); Nucleated Red Blood Cell # 0.00 Thou/mm3 (0.00-0.00); Nucleated Red Blood Cell % 0 /100 WBC (0); Platelet Count 276 Thou/mm3 (140-440); RDW Standard Deviation 41.2 fL (36.4-46.3); Red Blood Count 3.72 Miln/mm3 (4.00-5.20); White Blood Count 8.4 Thou/mm3 (3.6-11.0)
[2025-06-17 09:53] LABS: Misc Send Out* See Sep Rpt
[2025-06-17 09:57] LABS: Alanine Aminotransferase 10 U/L (10-49); Albumin, Serum 3.8 gm/dL (3.4-4.8); Albumin/Globulin Ratio 1.7 (1.2-2.2); Alkaline Phosphatase 65 U/L (46-116); Anion Gap 9 (7-16); Aspartate Amino Transferase 18 U/L (0-34); BUN/Creatinine Ratio 33 Ratio (12-20); Bilirubin,Total 0.4 mg/dL (0.3-1.2); Blood Urea Nitrogen 20 mg/dL (9-23); Calcium 8.6 mg/dL (8.3-10.6); Calcium (Corrected) 8.8 mg/dL (8.5-10.1); Carbon Dioxide 28.3 mMol/L (20.0-31.0); Chloride 109 mMol/L (98-107); Creatinine (Component) 0.6 mg/dL (0.6-1.3); Globulin 2.2 gm/dL (2.3-3.5); Glucose 164 mg/dL (74-106); Osmolality,Calculated 297 (275-295); Potassium 3.9 mMol/L (3.4-5.1); Sodium 146 mMol/L (136-145); Total Protein 6.0 gm/dL (5.7-8.2); eGFR > 60 See Note
[2025-06-17 10:16] LABS: CA 15-3 4.0 U/mL (<32.4)
== END 2025-07-05 23:59 | disposition home or self-care (01) ==
LOC: SCTC 10:40
PROVIDERS: PCP Family Medicine; Referring Provider Family Medicine; Visit Provider Internal Medicine Hematology & Oncology
DX: Z51.11 Encounter for antineoplastic chemotherapy (principal); C50.412 Malignant neoplasm of upper-outer quadrant of left female breast; Z17.421 Hormone receptor negative with human epidermal growth factor receptor 2 negative status
CPT/HCPCS: 80053; 85025; 86300; 96367; 96372; 96409; 96411; 96413; 99212; A4216; J1100; J1434; J1642; J2405; J2506; J3490; J7040; J7050; J9000; J9075; G0463

== ENCOUNTER 2025-06-25 21:47 | Emergency (ER) | payer MEDICAID, SELFPAY ==
--- NOTE | 2025-06-25 21:52 | EKG_ITS ---
[facility] Test Date: 2025-06-25 Pat Name: JEANINE WYMANDepartment: Room: - Gender: Female [id number] Operator: : 1965 Requested By: Enrrique Quezada Order Number: [id number] Reading MD: Enrrique Quezada Measurements Intervals [place] Rate: 100 P: 23 SC: 120 QRS: 19 QRSD: 71 T: 60 QT: 343 QTc: 442 Interpretive Statements SINUS TACHYCARDIA ABNORMAL RHYTHM ECG Compared to ECG 02/02/2025 00:01:31 Sinus rhythm no longer present /store/S0/[id number]/ecg/[id number].pdf
[2025-06-25 22:08] VITALS: BP 134/74; PULSE 102; RESP 20; TEMP 37.3; O2SAT 96
--- NOTE | 2025-06-25 22:12 | XR_ITS ---
EXAMINATION: PA chest single view TECHNIQUE: Upright PA chest single view Date and time: June 172024, 10:47 p.m. INDICATIONS: Lower chest pain beginning 2 days ago. FINDINGS: Right subclavian Port-A-Cath tip SVC satisfactory position Normal heart size No pneumonia or pulmonary edema Moderate osteopenia IMPRESSION: No pneumonia or pulmonary edema
--- NOTE | 2025-06-25 22:12 | PD.EDRME ---
Rapid Medical Screening Exam RME Arrival date/time: 06/25/25 21:47 59F with history of breast cancer (1st chemo treatment 2 days ago), HTN, DM, and anxiety presents to ED with 8 hours of lower chest/epigastric pain that radiates to back. Patient states this doesn't feel like an anxiety/panic attack. Chief Complaint: General Adult/Misc Complain Vital signs: Vital Signs Temperature 99.1 F 06/25/25 22:08 Pulse Rate 102 H 06/25/25 22:08 Respiratory Rate 20 06/25/25 22:08 Blood Pressure 134/74 H 06/25/25 22:08 Pulse Oximetry (%) 96 06/25/25 22:08 Oxygen Delivery Method Room Air 06/25/25 22:08 Exam: Mild epigastric tenderness Clinical Impression: ACS vs anxiety vs gastritis vs pancreatitis vs drug/chemo adverse effect vs PE
[2025-06-25 23:14] LABS: Basophils # (Auto) 0.0 Thou/mm3 (0.0-0.2); Basophils % (Auto) 1 % (0-2.5); Eosinophils # (Auto) 0.2 Thou/mm3 (0.0-0.5); Eosinophils % (Auto) 3 % (0-10); Hematocrit 29.6 % (36.0-46.0); Hemoglobin 10.0 g/dL (12.0-16.0); Immature Granulocytes Auto 0.44 Thou/mm3 (0.00-0.00); Lymphocytes # (Auto) 1.9 Thou/mm3 (1.0-4.8); Lymphocytes % (Auto) 34 % (10-50); Mean Corpuscular HGB Conc 33.8 g/dl (31.0-37.0); Mean Corpuscular Hemoglobin 29.6 pg (25.0-35.0); Mean Corpuscular Volume 88 fL (80-100); Monocytes # (Auto) 0.5 Thou/mm3 (0.0-0.8); Monocytes % (Auto) 8 % (0-12); Neutrophils # (Auto) 2.7 Thou/mm3 (1.8-7.7); Neutrophils % (Auto) 48 % (37-80); Nucleated Red Blood Cell # 0.02 Thou/mm3 (0.00-0.00); Nucleated Red Blood Cell % 0 /100 WBC (0); Platelet Count 192 Thou/mm3 (140-440); RDW Standard Deviation 39.3 fL (36.4-46.3); Red Blood Count 3.38 Miln/mm3 (4.00-5.20); White Blood Count 5.7 Thou/mm3 (3.6-11.0)
[2025-06-25 23:30] LABS: INR 1.0 (0.9-1.3); Partial Thromboplastin Time 26.8 Seconds (22.0-36.0); Prothrombin Time 10.3 Seconds (9.0-12.2)
[2025-06-25 23:32] LABS: B-Type Natriuretic Peptide 38 pg/mL (0-100)
[2025-06-25 23:34] LABS: Alanine Aminotransferase 10 U/L (10-49); Albumin, Serum 3.9 gm/dL (3.4-4.8); Albumin/Globulin Ratio 1.8 (1.2-2.2); Alkaline Phosphatase 95 U/L (46-116); Anion Gap 11 (7-16); Aspartate Amino Transferase 17 U/L (0-34); BUN/Creatinine Ratio 17 Ratio (12-20); Bilirubin,Total 0.3 mg/dL (0.3-1.2); Blood Urea Nitrogen 10 mg/dL (9-23); Calcium 9.4 mg/dL (8.3-10.6); Calcium (Corrected) 9.5 mg/dL (8.5-10.1); Carbon Dioxide 24.1 mMol/L (20.0-31.0); Chloride 109 mMol/L (98-107); Creatinine (Component) 0.6 mg/dL (0.6-1.3); Globulin 2.2 gm/dL (2.3-3.5); Glucose 194 mg/dL (74-106); Lipase 25 U/L (12-53); Magnesium 1.6 mg/dL (1.6-2.6); Osmolality,Calculated 290 (275-295); Potassium 3.7 mMol/L (3.4-5.1); Sodium 144 mMol/L (136-145); Total Protein 6.1 gm/dL (5.7-8.2); Troponin I < 0.020 ng/mL (0.0-0.045); eGFR > 60 See Note
--- NOTE | 2025-06-26 00:48 | XR_ITS ---
Examination: CT abdomen with intravenous contrast CT pelvis with intravenous contrast 2-D coronal reconstructions 2-D sagittal reconstructions Date and time of exam: June 26, 2025, 0247 hours, comparison PET/CT scan March 10, 2025 INDICATIONS: Diagnosis breast cancer, mastectomy January 27, 2025 Chest and epigastric abdominal pain today. CTDI: vol (mGy) 8.97 DLP: (mGycm) 514 Technique: Multiple axial sections of the abdomen and pelvis have been obtained. 64 slice high-resolution scanner used. 3 mm axial sections have been obtained, post intravenous injection 60 cc [id number] 2-D sagittal, coronal reconstructions obtained. Low dose protocols were performed. One or more of the following dose reduction techniques were used; automated exposure control, adjustment of the mA and/or KV according to patient size, use of iterative reconstruction technique. Findings: Mild enlargement cardiac contour Mild to moderate calcification left anterior descending coronary artery No visualized liver or splenic lesion Gallstones Mucosal thickening of the gastric antrum image 69 No pancreatic mass or dilated pancreatic duct Normal adrenal glands Mild renal scarring, no hydronephrosis or renal or ureteral calculi Aortic calcification no aneurysmal dilatation No pericecal inflammatory change No bowel obstruction or diverticulitis Atrophic uterus Bladder intact Significant osteopenia IMPRESSION: Suspicious for antral gastritis Mild renal scarring, no hydronephrosis No bowel obstruction or diverticulitis
--- NOTE | 2025-06-26 01:52 | PD.EDABDPN ---
ED Abdominal Pain RME/HPI General Chief Complaint: General Adult/Misc Complain Stated complaint: CHEST/EPIGASTRIC PAIN Time seen by provider: 06/25/25 23:23 Arrival date/time: 06/25/25 21:47 RME / HPI RME / HPI narrative: 06/25/25 21:47 59F with history of breast cancer (1st chemo treatment 2 days ago), HTN, DM, and anxiety presents to ED with 8 hours of lower chest/epigastric pain that radiates to back. Patient states this doesn't feel like an anxiety/panic attack. DR. ESQUIVEL MAIN ED EVALUATION: Patient presenting with high epigastric/lower lumbar back pain x approximately 3 days duration increasing in intensity. No fever or chills. No reported dysuria. Denies constipation. PMH: Hypercholesterolemia, Hypertension, Breast Cancer, Arthritis, Cataracts, Diabetes Mellitus Type 2, Depression PSH: Appendectomy, Hysterectomy Allergies: NKDA Social: No alcohol or tobacco Exam: Mild epigastric tenderness Impression: ACS vs anxiety vs gastritis vs pancreatitis vs drug/chemo adverse effect vs PE Related Data Home Medications ?Medication ?Instructions ?Recorded ?Confirmed glipizide 10 mg tablet 10 mg PO BID #0 tabs 06/27/16 06/11/25 buspirone 10 mg tablet 10 mg PO Q12H 01/26/25 06/11/25 losartan 50 mg tablet 50 mg PO DAILY 01/26/25 06/11/25 metformin 1,000 mg tablet 1,000 mg PO BID 01/26/25 06/11/25 Previous Rx's ?Medication ?Instructions ?Recorded acetaminophen 300 mg-codeine 15 mg 1 tab PO Q8H PRN pain #14 tabs 06/26/25 tablet ciprofloxacin HCl 250 mg tablet 250 mg PO BID 7 days #14 tabs 06/26/25 (Cipro) promethazine 12.5 mg tablet 12.5 mg PO TID PRN nausea and 06/26/25 vomiting #14 tabs Allergies Allergy/AdvReac Type Severity Reaction Status Date / Time [place] And Derivatives Allergy Unknown Verified 06/25/25 21:55 Review of Systems Review of Systems Systems Reviewed: All systems reviewed, normal except as documented Past Medical History Past Medical History CARDIAC: Positive Cardiac Disorders, Hypercholesterolemia and Hypertension REPRODUCTIVE: Positive Breast Cancer (Left) and Previous Pregnancies MUSCULOSKELETAL: Positive Musculoskeletal Disorders and Arthritis ENT: Positive Cataracts ENDOCRINE: Positive Diabetes Mellitus Type 2 PSYCHO/SOCIAL: Positive Depression OTHER HISTORY: Positive Cancer and Breast Cancer (Left) Family History FAMILY HISTORY: Positive Family Cancer Surgical History SURGICAL: Positive Lumpectomy (left mastectomy), Hysterectomy and Section ED Exam Narrative Physical exam: GEN. APPEARANCE: The patient is alert awake oriented X-3 under no distress, lying down comfortably, does not look ill/toxic. Patient has good eye contact. Patient is cooperative. VITALS: All vitals were reviewed and the pulse ox is 100%, which is normal according to my interpretation HEENT: Normocephalic, atraumatic and nontender. Pupils are equal and reactive. Oral mucosa is moist. NECK: Supple, nontender, no meningismus, no JVD. There is no thyromegaly and no lymphadenopathy. CHEST: Nontender on palpation no deformity and no crepitus. CARDIOVASCULAR: Heart regular rhythm, no murmur or gallop rub or extra beats. LUNGS: Clear to auscultation bilaterally with symmetrical chest rise. No laboring tachypnea or wheezing. No intercostal subcostal retraction. No rales and no rhonchi. ABDOMEN: Soft, flat, TTP mid epigastric region, no guarding or peritoneal findings. There are no abnormal masses palpated. No pulsatile masses or bruits. Active and normal bowel sounds. EXTREMITIES: Normal inspection and palpation. No edema. No cyanosis. Patient is able to move all 4 extremities well SKIN: Warm and dry, no rashes noted. MUSCULOSKELETAL: No lumbar or midline bony tenderness. There is no CVA tenderness. No paraspinal muscle spasm or tenderness. NEURO: Cranial nerves II through XII grossly intact. There are no focal neurologic deficits noted. GCS is 15 PSYCHIATRIC: Patient is in normal mood and affect, cooperative. LYMPHATICS: No major lymphadenopathy noted. Course Quality Measures none Orders Category Date Time Status CT Screening NOW Care 06/26/25 00:49 Active EKG (ED ONLY) *Do not use* NOW Care 06/25/25 21:[address] abdomen pelvis w con Stat Exams 06/26/25 00:48 Taken EKG (ED Only) Stat Exams 06/25/25 21:52 Draft XR chest 1V portable Stat Exams 06/25/25 22:12 Completed B-Type Natriuretic Peptide Stat Lab 06/25/25 22:44 Completed CBC Stat Lab 06/25/25 22:44 Completed Comprehensive Metabolic Panel Stat Lab 06/25/25 22:44 Completed Lipase Stat Lab 06/25/25 22:44 Completed Magnesium Stat Lab 06/25/25 22:44 Completed Partial Thromboplastin Time Stat Lab 06/25/25 22:44 Completed Prothrombin Time with INR Stat Lab 06/25/25 22:44 Completed Troponin I Stat Lab 06/25/25 22:44 Completed Aspirin Med 06/25/25 22:12 Discontinued 325 mg PO X1 ONE Metoclopramide Inj [Reglan Inj] Med 06/26/25 00:53 Discontinued 5 mg IVP X1 ONE Morphine* Inj Med 06/26/25 00:53 Discontinued 4 mg IVP X1 ONE Pantoprazole Inj [Protonix Inj] Med 06/26/25 00:52 Discontinued 40 mg IVP X1 ONE Sodium Chloride 0.9% 1000 ml [Ns] 1,000 ml Med 06/26/25 00:49 Discontinued IV 999 mls/hr cefTRIAXone/D5w 1gm IV premix [Rocephin/D5w 1gm IV Med 06/26/25 03:28 Discontinued premix] 1 gm in 50 ml IV X1 Vital Signs Vital signs: Vital Signs Temperature 99.1 F 06/25/25 22:08 Pulse Rate 102 H 06/25/25 22:08 Respiratory Rate 20 06/25/25 22:08 Blood Pressure 134/74 H 06/25/25 22:08 Pulse Oximetry (%) 96 06/25/25 22:08 Oxygen Delivery Method Room Air 06/25/25 22:08 Abdominal Pain MDM MDM Narrative MDM Narrative:: Scribe Attestation: Sienna Mcclure, leo scribing for and in the presence of Dr. Shepard. Provider Notation: Although this document has been carefully reviewed, there may still be some phonetic and other typographical errors. These errors are purely grammatical due to imperfections in the software program and should not be construed in any way to compromise the substance of the patient's medical care during this visit. Patient presenting with high epigastric/lower lumbar back pain x approximately 3 days duration increasing in intensity. No fever or chills. No reported dysuria. Please see PE findings. Laboratory markers demonstrate progressive anemia with hemoglobin of 10, normal platelet count. Serum chemistries essentially unremarkable. UA with evidence of infection. Patient hydrated with saline treated with low-dose narcotic analegesics/anti-emetics, and also received PPI with mild to moderate improvement. Chest CT was obtained, which is currently pending. CT scan demonstrates gall bladder sludge without elevated LFT's. Patient received imperic ABX for UTI. Remains hemodynamically stable without signs of sepsis and considered stable for discharge. Will place on ABX, low-dose narcotic analgesic, and recommend close f/u. Patient data External records reviewed:: [facility] previous records (Reviewed prior ED records from 02/02/25. Patient was seen for Syncope.) Clinical information provided by:: patient Social determinants that could affect healthcare access:: none Patient has the following chronic illnesses:: Hypertension, Breast Cancer (Left), Arthritis, Cataracts, Diabetes Mellitus Type 2, Depression How is presenting disease/condition affected by chronic disease/condition?: exacerbated by Evaluation data The following diagnostics were reviewed and interpreted by me:: lab results, radiology exam(s) and EKG tracing(s) (EKG at 22:04 shows sinus tachycardia at 100, no ST segment changes, leftward axis, no ventricular ectopy, no signs of acute ischemia, per my interpretation. ) Lab and/or radiology exams considered but not ordered:: None Interpretation Summary: RADIOLOGY Chest X-Ray: FINDINGS: Right subclavian Port-A-Cath tip SVC satisfactory position Normal heart size No pneumonia or pulmonary edema Moderate osteopenia IMPRESSION: No pneumonia or pulmonary edema Abdomen/Pelvis CT: Findings: The lung bases are clear. The liver, pancreas, spleen, kidneys and adrenals are unremarkable. Gallstones without evidence of acute cholecystitis. Gallbladder sludge. No biliary duct dilatation. No evidence of bowel obstruction. No evidence of appendicitis. The uterus and ovaries are within normal limits. Fecal loading. There is no mesenteric or retroperitoneal adenopathy. The urinary bladder is unremarkable. There is no free fluid or free air. Degenerative changes of the imaged portions of the spine. No acute fractures. Distal tip of the central line in the right atrium. Coronary arteries calcifications. Dilated left atrium. Impression: Dilated left atrium. Coronary arteries calcifications. If acute myocardial infarction is clinically suspected consider correlation with troponin. Gallstones and gallbladder sludge without evidence of acute cholecystitis. If acute cholecystitis is clinically suspected consider correlation with right upper quadrant ultrasound. Fecal loading. Medications / Prescriptions Medications or Prescriptions considered but not ordered:: None Medication administrations:: Medication Administration History Discontinued Medications Aspirin (Aspirin 325 Mg Tablet) 325 mg PO X1 ONE Stop: 06/25/25 22:13 Last Admin: 06/25/25 22:21 Dose: 325 mg Documented By: JUAN DAVID Sodium Chloride (Ns) 1,000 mls @ 999 mls/hr IV .Q1H1M ONE Stop: 06/26/25 01:49 Last Infusion: 06/26/25 03:11 Dose: Infused Documented By: Admin: 06/26/25 02:10 Dose: 999 mls/hr Documented By: JACOB Ceftriaxone Sodium/Dextrose (Rocephin/D5w 1gm Iv Premix) 1 gm in 50 mls @ 100 mls/hr IV X1 ONE Stop: 06/26/25 03:57 Last Infusion: 06/26/25 04:10 Dose: Infused Documented By: Admin: 06/26/25 03:40 Dose: 100 mls/hr Documented By: JACOB Metoclopramide HCl (Metoclopramide Inj 5 Mg/Ml Vial 2 Ml) 5 mg IVP X1 ONE; Protocol Stop: 06/26/25 00:54 Last Admin: 06/26/25 02:10 Dose: 5 mg Documented By: JACOB Morphine Sulfate (Morphine Sulf Inj 4 Mg/Ml Vial) 4 mg IVP X1 ONE Stop: 06/26/25 00:54 Last Admin: 06/26/25 02:11 Dose: 4 mg Documented By: JACOB Pantoprazole Sodium (Pantoprazole Inj 40 Mg Vial) 40 mg IVP X1 ONE Stop: 06/26/25 00:53 Last Admin: 06/26/25 02:14 Dose: 40 mg Documented By: JACOB See above if any Consultations Consultation(s) initiated? (list below): No Diagnosis Differential diagnosis abdominal pain: abdominal pain, calculus of kidney, constipation, diverticulitis, gastroenteritis, small bowel obstruction and other (Sepsis, Viral illness) Most likely diagnosis given after review of the tests above:: UTI Admission Indicated Admission indicated?: not indicated Explain why admission is indicated or not indicated:: Patient does not meet admission criteria Admission Request Was there a request for admission?: No Disposition Plan Disposition Plan: Discharge Discharge Attestation Discharge Attestation: The patient and all family members were given an opportunity to ask questions and understood the discharge instructions. Discharge instructions specifically effects, indications for sooner follow up or return to the emergency department, and the expected course of current diagnosis. Patient condition: Stable Discharge Plan Plan Patient Disposition: HOME (Self Care) Discharge Disposition comment: stable Prescriptions/Referrals Prescriptions/Med Rec: New ciprofloxacin HCl [Cipro] 250 mg tablet 250 mg PO BID 7 Days Qty: 14 0RF acetaminophen-codeine 300-15 mg tablet 1 tab PO Q8H MDD 3 tab PRN (Reason: pain) Qty: 14 0RF promethazine 12.5 mg tablet 12.5 mg PO TID PRN (Reason: nausea and vomiting) Qty: 14 0RF No Action glipizide 10 MG tablet 10 mg PO BID Qty: 0 losartan 50 mg tablet 50 mg PO DAILY Patient Comments: TAKE 1 TABLET BY MOUTH ONCE DAILY buspirone 10 mg tablet 10 mg PO Q12H Patient Comments: TAKE 1 TABLET BY MOUTH TWICE DAILY metformin 1,000 mg tablet 1,000 mg PO BID Patient Comments: TAKE 1 TABLET BY MOUTH TWICE DAILY WITH MEALS Referrals: Uzair Diaz MD [Primary Care Provider, Family Practice] - In 1 week Problem List Clinical Impression: UTI (urinary tract infection) Impression comment: Ascending urinary tract infection Patient/Caregiver Discharge Instructions Discharge Activity: activity as tolerated Education Materials: Urinary Tract Infections in Women Additional Instructions: Force fluids/medication as directed/follow-up with primary care doctor for repeat urinalysis in 5 to 7 days. Return if worsening Print Language: Greek Stand Alone Forms: Milena Award Info., Patient Portal Info Letter
[2025-06-26 02:04] VITALS: BP 155/76; PULSE 97; RESP 17; TEMP 37; O2SAT 100
[2025-06-26] MEDS: METOCLOPRAMIDE INJ 5 MG/ML VIAL 2 ML IVP (02:10)
[2025-06-26] MEDS: SODIUM CHLORIDE 0.9% 1000 ML 1,000 ML 999 ML IV (02:10)
[2025-06-26] MEDS: MORPHINE SULF INJ 4 MG/ML VIAL IVP (02:11)
[2025-06-26] MEDS: cefTRIAXone/D5w 1gm IV premix 1 GM/50 ML BAG IV (03:40)
--- NOTE | 2025-06-26 03:49 | PRELIM_ITS ---
CT scan of the abdomen and pelvis with intravenous contrast (axial sections with sagittal and coronal reformats); June 26, 2025 at 0245 hours Clinical History: R/o inflammatory process. Comparison: None available at the time of this report. Findings: The lung bases are clear. The liver, pancreas, spleen, kidneys and adrenals are unremarkable. Gallstones without evidence of acute cholecystitis. Gallbladder sludge. No biliary duct dilatation. No evidence of bowel obstruction. No evidence of appendicitis. The uterus and ovaries are within normal limits. Fecal loading. There is no mesenteric or retroperitoneal adenopathy. The urinary bladder is unremarkable. There is no free fluid or free air. Degenerative changes of the imaged portions of the spine. No acute fractures. Distal tip of the central line in the right atrium. Coronary arteries calcifications. Dilated left atrium. Impression: Dilated left atrium. Coronary arteries calcifications. If acute myocardial infarction is clinically suspected consider correlation with troponin. Gallstones and gallbladder sludge without evidence of acute cholecystitis. If acute cholecystitis is clinically suspected consider correlation with right upper quadrant ultrasound. Fecal loading. Report Electronically Signed By: Melchor Bellamy 06/26/2025 3:48:46 AM [EST]
[2025-06-26 05:17] VITALS: BP 118/59; PULSE 93; RESP 16; TEMP 36.7; O2SAT 98
== END 2025-06-26 05:54 | disposition home or self-care (01) ==
PROVIDERS: Physician Assistant; Emergency Provider Emergency Medicine; PCP Family Medicine
DX: N39.0 Urinary tract infection, site not specified (principal); E11.9 Type 2 diabetes mellitus without complications; E78.00 Pure hypercholesterolemia, unspecified; F41.9 Anxiety disorder, unspecified; I11.9 Hypertensive heart disease without heart failure; M19.90 Unspecified osteoarthritis, unspecified site; Z79.84 Long term (current) use of oral hypoglycemic drugs
CPT/HCPCS: 36415; 71045; 74177; 80053; 83690; 83735; 83880; 84484; 85025; 85610; 85730; 93005; 96361; 96365; 96375; 99284; A4649; J0696; J2270; J2470; J2765; J7030; Q9967; A9270

== ENCOUNTER 2025-07-23 12:45 | Outpatient (RCR) | payer MEDICAID, SELFPAY ==
[2025-07-07 12:41] LABS: Basophils # (Auto) 0.2 Thou/mm3 (0.0-0.2); Basophils % (Auto) 1 % (0-2.5); Eosinophils # (Auto) 0.1 Thou/mm3 (0.0-0.5); Eosinophils % (Auto) 1 % (0-10); Hematocrit 32.7 % (36.0-46.0); Hemoglobin 11.3 g/dL (12.0-16.0); Immature Granulocytes Auto 0.07 Thou/mm3 (0.00-0.00); Lymphocytes # (Auto) 2.0 Thou/mm3 (1.0-4.8); Lymphocytes % (Auto) 19 % (10-50); Mean Corpuscular HGB Conc 34.6 g/dl (31.0-37.0); Mean Corpuscular Hemoglobin 30.1 pg (25.0-35.0); Mean Corpuscular Volume 87 fL (80-100); Monocytes # (Auto) 1.1 Thou/mm3 (0.0-0.8); Monocytes % (Auto) 10 % (0-12); Neutrophils # (Auto) 7.4 Thou/mm3 (1.8-7.7); Neutrophils % (Auto) 69 % (37-80); Nucleated Red Blood Cell # 0.00 Thou/mm3 (0.00-0.00); Nucleated Red Blood Cell % 0 /100 WBC (0); Platelet Count 509 Thou/mm3 (140-440); RDW Standard Deviation 41.8 fL (36.4-46.3); Red Blood Count 3.75 Miln/mm3 (4.00-5.20); White Blood Count 10.8 Thou/mm3 (3.6-11.0)
[2025-07-07 13:13] LABS: Alanine Aminotransferase 15 U/L (10-49); Albumin, Serum 4.2 gm/dL (3.4-4.8); Albumin/Globulin Ratio 1.6 (1.2-2.2); Alkaline Phosphatase 86 U/L (46-116); Anion Gap 10 (7-16); Aspartate Amino Transferase 21 U/L (0-34); BUN/Creatinine Ratio 23 Ratio (12-20); Bilirubin,Total 0.3 mg/dL (0.3-1.2); Blood Urea Nitrogen 14 mg/dL (9-23); Calcium 9.1 mg/dL (8.3-10.6); Calcium (Corrected) 9.1 mg/dL (8.5-10.1); Carbon Dioxide 26.0 mMol/L (20.0-31.0); Chloride 106 mMol/L (98-107); Creatinine (Component) 0.6 mg/dL (0.6-1.3); Globulin 2.7 gm/dL (2.3-3.5); Glucose 242 mg/dL (74-106); Osmolality,Calculated 291 (275-295); Potassium 4.2 mMol/L (3.4-5.1); Sodium 142 mMol/L (136-145); Total Protein 6.9 gm/dL (5.7-8.2); eGFR > 60 See Note
--- NOTE | 2025-07-14 16:58 | CTCFLWUP_ITS ---
Patient: JEANINE WYMAN : 1965 Page 2 of 2 FOLLOW UP NOTE DATE OF SERVICE: 07/14/2025 NAME: JEANINE WYMAN ACCOUNT: [id number] : 1965 AGE: 59 INTERVAL HISTORY: Patient is doing well. She wants new nausea meds. 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 Patient already had a left mastectomy margins -3 lymph nodes were removed and were negative for cancer I do not have report available. Patient was found to have T2 lesion with a high-grade and high Ki-67. Patient is here to discuss chemotherapy options. Patient is very reluctant to get any treatment. 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 Tobacco?Use:?Denies ETOH?Use:?Denies Drug?Note:?Denies Social History Note:?Pt and her live with dtr [employer] HISTORY: Menarche?-?Age:?11 Menopause:?2018 Hormone?Use:?DENIES :?7 Live?Births:?7 Age?1st?:?16 MEDICATIONS: 1. busPIRone - 10 mg 1 tab Daily 2. Compazine - 5 mg 5 mg Daily 3. glipizide - 10 mg Daily 4. losartan - 50 mg Daily 5. metformin - 1,000 mg Twice a Day 6. [place] - As directed 7. ondansetron - 8 mg 8 mg Daily Medications Last Reconciled by Nat Chau MA on 07/14/2025 ALLERGIES: No Known Drug Allergies REVIEW OF SYSTEMS: A complete 14-point review of systems was performed and is negative except as noted in interval history. PHYSICAL EXAMINATION: VITAL SIGNS: Temperature?98.6, B/P?127/79, Oxygen?Saturation?100% Weight?144?lbs (Change?since?07/09/25:?-4?lbs) PAIN: 4 - Moderate pain ECOG Performance Status: 0 - Asymptomatic and fully active GENERAL APPEARANCE: Appears well, in no apparent distress, appropriately interactive. HEENT: Normocephalic, no temporal wasting, normal conjunctiva, no scleral icterus, normal hearing, lips without lesions, neck normal range of motion. CARDIOVASCULAR: Not assessed. PULMONARY: Normal respiratory effort, no respiratory distress or use of accessory muscles, speaking in full sentences, no tachypnea. EXTREMITIES: No pedal edema or cyanosis. SKIN: Normal skin appearance. NEUROLOGIC: Alert and oriented x4. PSHYCHIATRIC: Appropriate affect, mood normal, behavior normal, intact thought and speech. LABORATORY DATA: I have personally reviewed and interpreted each of the patient?s relevant lab tests, abnormal findings are below: Date 06/25/25 07/07/25 ??WHITE?BLOOD?COUNT?(Thou/mm3) 5.7 10.8 ??RED?BLOOD?COUNT?(Miln/mm3) 3.38?L 3.75?L ??HEMOGLOBIN?(gm/dl) 10.0?L 11.3?L ??HEMATOCRIT?(%) 29.6?L 32.7?L ??PLATELET?COUNT?(Thou/mm3) 192 509?H ??NEUTROPHILS?%,?AUTO?(%) 48 69 ??LYMPH?%,?AUTO?(%) 34 19 ??NEUTROPHILS,?AUTO?(Thou/mm3) 2.7 7.4 ??GLUCOSE,RANDOM?(mg/dL) 194?H 242?H ??BLOOD?UREA?NITROGEN?(mg/dL) 10 14 ??CREATININE?(mg/dL) 0.60 0.60 ??SODIUM?(mmol/L) 144 142 ??POTASSIUM?(mmol/L) 3.7 4.2 ??CHLORIDE?(mmol/L) 109?H 106 ??CrCl?(CandG)?(ml/min) 88.46 87.27 ??AST/SGOT?(Unit/L) 17 21 ??ALT/SGPT?(Unit/L) 10 15 ??ALKALINE?PHOSPHATASE?(Unit/L) 95 86 ??BILIRUBIN,?TOTAL?(mg/dL) 0.3 0.3 ??PROTEIN?TOTAL?(gm/dl) 6.1 6.9 ??ALBUMIN,?SERUM?(gm/dl) 3.9 4.2 ??GLOBULIN?(gm/dl) 2.2?L 2.7 ??ALBUMIN/GLOBULIN?RATIO 1.8 1.6 ??CALCIUM,?SERUM?(mg/dL) 9.4 9.1 ??CALCIUM?SERUM?(CORRECTED)?(mg/dL) 9.5 9.1 ASSESSMENT/PLAN: 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 RTC in 2 months RETURN TO CLINIC: I reviewed the diagnosis, prognosis, and recommended treatment/procedure options with the patient (and/or their legal aircraft sales representative), including the potential benefits, risks, side effects and alternative therapies. We also discussed the option of no treatment and the possibility of clinical trial participation, if applicable. All questions were addressed, and they demonstrated understanding. They provided informed consent to proceed with the proposed plan of care. BILLING AND COMPLIANCE: I reviewed external records from providers outside my specialty as summarized above. I spent a total of 50 minutes on this patient?s care on the day of their visit excluding time spent related to any billed procedures. This time includes time spent with the patient as well as time spent documenting in the medical record, reviewing patients records and tests, obtaining history, placing orders, communicating with other healthcare professionals, counseling the patient, family or caregiver, and/or care coordination for the diagnoses above. Electronically Signed by: Asad Kahn MD T: 4:55 PM CC: PCP: Uzair Diaz Referring: Uzair Diaz This document was completed utilizing speech recognition software. Grammatical errors, random word insertions, pronoun errors, and incomplete sentences are an occasional consequence of this system due to software limitations, ambient noise, and hardware issues. Any formal questions or concerns about the content, text or information contained within the body of this dictation should be directly addressed to the provider for clarification.
[2025-07-21 09:50] LABS: Basophils # (Auto) 0.1 Thou/mm3 (0.0-0.2); Basophils % (Auto) 1 % (0-2.5); Eosinophils # (Auto) 0.2 Thou/mm3 (0.0-0.5); Eosinophils % (Auto) 2 % (0-10); Hematocrit 26.9 % (36.0-46.0); Hemoglobin 9.5 g/dL (12.0-16.0); Immature Granulocytes Auto 0.93 Thou/mm3 (0.00-0.00); Lymphocytes # (Auto) 2.0 Thou/mm3 (1.0-4.8); Lymphocytes % (Auto) 14 % (10-50); Mean Corpuscular HGB Conc 35.3 g/dl (31.0-37.0); Mean Corpuscular Hemoglobin 30.4 pg (25.0-35.0); Mean Corpuscular Volume 86 fL (80-100); Monocytes # (Auto) 1.2 Thou/mm3 (0.0-0.8); Monocytes % (Auto) 9 % (0-12); Neutrophils # (Auto) 9.3 Thou/mm3 (1.8-7.7); Neutrophils % (Auto) 68 % (37-80); Nucleated Red Blood Cell # 0.03 Thou/mm3 (0.00-0.00); Nucleated Red Blood Cell % 0 /100 WBC (0); Platelet Count 97 Thou/mm3 (140-440); RDW Standard Deviation 43.0 fL (36.4-46.3); Red Blood Count 3.12 Miln/mm3 (4.00-5.20); White Blood Count 13.8 Thou/mm3 (3.6-11.0)
[2025-07-21 10:26] LABS: Alanine Aminotransferase 8 U/L (10-49); Albumin, Serum 3.7 gm/dL (3.4-4.8); Albumin/Globulin Ratio 1.5 (1.2-2.2); Alkaline Phosphatase 109 U/L (46-116); Anion Gap 9 (7-16); Aspartate Amino Transferase 15 U/L (0-34); BUN/Creatinine Ratio 14 Ratio (12-20); Bilirubin,Total 0.3 mg/dL (0.3-1.2); Blood Urea Nitrogen 10 mg/dL (9-23); Calcium 8.4 mg/dL (8.3-10.6); Calcium (Corrected) 8.6 mg/dL (8.5-10.1); Carbon Dioxide 26.4 mMol/L (20.0-31.0); Chloride 112 mMol/L (98-107); Creatinine (Component) 0.7 mg/dL (0.6-1.3); Globulin 2.5 gm/dL (2.3-3.5); Glucose 120 mg/dL (74-106); Osmolality,Calculated 292 (275-295); Potassium 3.3 mMol/L (3.4-5.1); Sodium 147 mMol/L (136-145); Total Protein 6.2 gm/dL (5.7-8.2); eGFR > 60 See Note
[2025-07-21 10:27] LABS: CA 15-3 8.6 U/mL (<32.4)
[2025-07-22 10:30] LABS: Platelet Count 123 Thou/mm3 (140-440)
== END 2025-08-05 23:59 | disposition home or self-care (01) ==
LOC: SCTC 12:45
PROVIDERS: PCP Family Medicine; Referring Provider Family Medicine; Visit Provider Internal Medicine Hematology & Oncology
DX: Z51.11 Encounter for antineoplastic chemotherapy (principal); C50.412 Malignant neoplasm of upper-outer quadrant of left female breast; Z17.421 Hormone receptor negative with human epidermal growth factor receptor 2 negative status; Z90.12 Acquired absence of left breast and nipple
CPT/HCPCS: 36591; 80053; 85025; 85049; 86300; 96367; 96372; 96411; 96413; 99212; A4216; J1100; J1434; J1642; J2405; J2506; J3490; J7040; J7050; J9000; J9075; Q5111; G0463

== ENCOUNTER 2025-07-27 14:26 | Inpatient (IN) | payer MEDICAID, SELFPAY ==
[2025-07-27 14:50] VITALS: BP 114/73; PULSE 102; RESP 18; TEMP 37.1; O2SAT 96; BMI 25.5
--- NOTE | 2025-07-27 15:17 | PD.EDRME ---
Rapid Medical Screening Exam RME Arrival date/time: 07/27/25 14:26 59 y.o. female with h/o right breast carcinoma was sent by CT for incidental findings of PE this afternoon Chief Complaint: General Adult/Misc Complain Time Seen by Provider: 07/27/25 14:40 Vital signs: Vital Signs Temperature 98.8 F 07/27/25 14:50 Pulse Rate 102 H 07/27/25 14:50 Respiratory Rate 18 07/27/25 14:50 Blood Pressure 114/73 07/27/25 14:50 Pulse Oximetry (%) 96 07/27/25 14:50 Oxygen Delivery Method Room Air 07/27/25 14:50 Exam: - Clinical Impression: -
--- NOTE | 2025-07-27 15:47 | PD.EDADULT ---
ED General RME/HPI General Chief complaint: General Adult/Misc Complain Stated complaint: SENT FROM CT SCAN, POSITIVE FOR PE Time Seen by Provider: 07/27/25 14:40 Arrival date/time: 07/27/25 14:26 RME / HPI RME / HPI narrative: 07/27/25 14:26 59 y.o. female with h/o right breast carcinoma was sent by CT for incidental findings of PE this afternoon DR. KAMARA MAIN ED EVALUATION 59-year-old female with past medical history significant for diabetes, hypertension, and breast cancer on chemotherapy coming in for evaluation of abnormal CT findings from CT that was done today ordered by her oncologist for further evaluation of her condition. did have some upper abdominal discomfort earlier today but this is since resolved. Denies any current shortness of breath, chest pain, abdominal pain. Does have some pain to her right lower extremity as well as varicose veins there. No fevers or other acute symptoms at present. Exam: - Impression: - Related Data Home Medications ?Medication ?Instructions ?Recorded ?Confirmed glipizide 10 mg tablet 10 mg PO BID #0 tabs 06/27/16 06/11/25 buspirone 10 mg tablet 10 mg PO Q12H 01/26/25 06/11/25 losartan 50 mg tablet 50 mg PO DAILY 01/26/25 06/11/25 metformin 1,000 mg tablet 1,000 mg PO BID 01/26/25 06/11/25 Previous Rx's ?Medication ?Instructions ?Recorded acetaminophen 300 mg-codeine 15 mg 1 tab PO Q8H PRN pain #14 tabs 06/26/25 tablet promethazine 12.5 mg tablet 12.5 mg PO TID PRN nausea and 06/26/25 vomiting #14 tabs Allergies Allergy/AdvReac Type Severity Reaction Status Date / Time [place] And Derivatives Allergy Unknown Verified 07/27/25 14:30 Review of Systems Review of Systems Systems Reviewed: All systems reviewed, normal except as documented Past Medical History Past Medical History Comments PMH COMMENT: Diabetes, hypertension, breast cancer ED Exam Narrative Physical exam: Constitutional: Awake, alert, nontoxic, does not appear in acute distress at this time. HEENT: Normocephalic, atraumatic, extraocular movements intact. CV: Slight tachy and regular rhythm, no murmurs/rubs/gallops Lungs: Clear to auscultation BL, no respiratory distress. Abd: Soft, mild ttp diffuse, ND, no HSM noted to palpation Extremities: Pain to palpation R calf with varicose veins present. Neuro: AAOx3, CN 2-12 GIBL, no acute neuro deficit noted. Skin: Warm, dry, intact Course Quality Measures VTE therapy Orders Category Date Time Status CBC Stat Lab 07/27/25 15:30 Completed CMP [Comprehensive Metabolic Panel] Stat Lab 07/27/25 15:30 Completed PT [Prothrombin Time with INR] Stat Lab 07/27/25 15:30 Completed PTT [Partial Thromboplastin Time] Stat Lab 07/27/25 15:30 Completed Heparin Inj Med 07/27/25 16:29 Discontinued 5,250 unit IV X1 ONE Heparin/D5w 25K 250 ML Ivpb [Heparin in D5w Ivpb] Med 07/27/25 16:30 Active 25,000 unit in 250 ml IV 18 units/kg/hr Vital Signs Vital signs: Vital Signs Temperature 98.8 F 07/27/25 14:50 Pulse Rate 102 H 07/27/25 14:50 Respiratory Rate 18 07/27/25 14:50 Blood Pressure 114/73 07/27/25 14:50 Pulse Oximetry (%) 96 07/27/25 14:50 Oxygen Delivery Method Room Air 07/27/25 14:50 Critical Care Time Critical Care Time Critical Care Time: Yes Total Critical Care Time (min.): 32 Attestation: The high probability of a clinically significant, sudden or life threatening deterioration required my full and direct attention, intervention and personal management. The aggregate critical care time was [32] minutes. This time is in addition to time spent performing reported procedures but includes the following: [x] Data Review and interpretation [x] Patient assessment and monitoring of vital signs [x] Documentation [x] Medication orders and management Discharge Plan Plan Patient Disposition: Admit Acute Care w/in Hospital Patient condition on transfer: Stable Prescriptions/Referrals Prescriptions/Med Rec: No Action glipizide 10 MG tablet 10 mg PO BID Qty: 0 losartan 50 mg tablet 50 mg PO DAILY Patient Comments: TAKE 1 TABLET BY MOUTH ONCE DAILY buspirone 10 mg tablet 10 mg PO Q12H Patient Comments: TAKE 1 TABLET BY MOUTH TWICE DAILY metformin 1,000 mg tablet 1,000 mg PO BID Patient Comments: TAKE 1 TABLET BY MOUTH TWICE DAILY WITH MEALS acetaminophen-codeine 300-15 mg tablet 1 tab PO Q8H MDD 3 tab PRN (Reason: pain) Qty: 14 0RF promethazine 12.5 mg tablet 12.5 mg PO TID PRN (Reason: nausea and vomiting) Qty: 14 0RF Problem List Clinical Impression: Pulmonary embolism, Anemia, History of breast cancer Patient/Caregiver Discharge Instructions Print Language: Yoruba Stand Alone Forms: Milena Award Info., Patient Portal Info Letter MDM Narrative MDM hospital course (for use when minimal MDM required): 59-year-old female coming in for evaluation of abnormal CT revealing pulmonary embolism to right lung. Does have history of breast cancer for which she is on chemotherapy. Labs ordered for further evaluation revealing hemoglobin of 9.0 which is close to baseline but appears to be slowly drifting down over time. Normocytic normochromic anemia, possibly secondary to chronic disease with active cancer and chemotherapy. Heparin drip was ordered for patient. Discussed with hospitalist team A for admit. Medication Administration(s) Medication Administration History Heparin Sodium/Dextrose (Heparin In D5w Ivpb) 25,000 unit in 250 mls @ 11.783 mls/hr IV .[id number] [facility]; Protocol Stop: 08/10/25 16:29 Discontinued Medications Heparin Sodium (Porcine) (Heparin Sod Inj 5000 Unit/Ml Vial) 5,250 unit 80 unit/kg (5250 unit) IV X1 ONE; Protocol Stop: 07/27/25 16:30 Diagnosis Differential Diagnosis ED Complaint MDM: Dx: Pulmonary embolism, breast CA, normocytic anemia
[2025-07-27 15:57] LABS: Basophils # (Auto) 0.0 Thou/mm3 (0.0-0.2); Basophils % (Auto) 0 % (0-2.5); Eosinophils # (Auto) 0.0 Thou/mm3 (0.0-0.5); Eosinophils % (Auto) 0 % (0-10); Hematocrit 27.0 % (36.0-46.0); Hemoglobin 9.0 g/dL (12.0-16.0); Immature Granulocytes Auto 0.53 Thou/mm3 (0.00-0.00); Lymphocytes # (Auto) 0.6 Thou/mm3 (1.0-4.8); Lymphocytes % (Auto) 14 % (10-50); Mean Corpuscular HGB Conc 33.3 g/dl (31.0-37.0); Mean Corpuscular Hemoglobin 29.7 pg (25.0-35.0); Mean Corpuscular Volume 89 fL (80-100); Monocytes # (Auto) 0.0 Thou/mm3 (0.0-0.8); Monocytes % (Auto) 1 % (0-12); Neutrophils # (Auto) 3.3 Thou/mm3 (1.8-7.7); Neutrophils % (Auto) 73 % (37-80); Nucleated Red Blood Cell # 0.00 Thou/mm3 (0.00-0.00); Nucleated Red Blood Cell % 0 /100 WBC (0); Platelet Count 166 Thou/mm3 (140-440); RDW Standard Deviation 47.4 fL (36.4-46.3); Red Blood Count 3.03 Miln/mm3 (4.00-5.20); White Blood Count 4.5 Thou/mm3 (3.6-11.0)
[2025-07-27 16:14] LABS: INR 1.1 (0.9-1.3); Partial Thromboplastin Time 25.9 Seconds (22.0-36.0); Prothrombin Time 11.2 Seconds (9.0-12.2)
[2025-07-27 16:29] LABS: Alanine Aminotransferase < 7 U/L (10-49); Albumin, Serum 3.8 gm/dL (3.4-4.8); Albumin/Globulin Ratio 1.6 (1.2-2.2); Alkaline Phosphatase 177 U/L (46-116); Anion Gap 10 (7-16); Aspartate Amino Transferase 26 U/L (0-34); BUN/Creatinine Ratio 20 Ratio (12-20); Bilirubin,Total 0.9 mg/dL (0.3-1.2); Blood Urea Nitrogen 12 mg/dL (9-23); Calcium 8.5 mg/dL (8.3-10.6); Calcium (Corrected) 8.7 mg/dL (8.5-10.1); Carbon Dioxide 28.9 mMol/L (20.0-31.0); Chloride 106 mMol/L (98-107); Creatinine (Component) 0.6 mg/dL (0.6-1.3); Estimated Creatinine Clearance 89.6 mL/min (>60); Globulin 2.4 gm/dL (2.3-3.5); Glucose 166 mg/dL (74-106); Osmolality,Calculated 292 (275-295); Potassium 4.1 mMol/L (3.4-5.1); Sodium 145 mMol/L (136-145); Total Protein 6.2 gm/dL (5.7-8.2); eGFR > 60 See Note
[2025-07-27 17:24] VITALS: BP 164/100; PULSE 94; RESP 12; TEMP 37.6; O2SAT 97
--- NOTE | 2025-07-27 17:50 | PC.NURSE ---
Pt. here from home to room 2, pt. was here visiting her who just got admitted, pt. has breast cancer and had left breast removed, pt.'s daughter in law who is bedside stated they received a call from CT that pt. had a blood clot in her lungs, daughter in law states pt. has not been SOB and only felt bad last night. Daughter in law states pt. has been depressed about her cancer and has been sleeping a lot. Pt. states we are unable to use her left arm. Limb alert applied to left arm. Pt. has a port to right upper chest. Daughter in law requests that when pt. gets admitted could she please be in a room with her or next door to him. customer service dispatcher informed.
--- NOTE | 2025-07-27 18:02 | PC.NURSE ---
Daughter in law states that pt. has 16 doses of chemo to receive and so far has completed 3.
[2025-07-27 18:10] VITALS: BP 138/87; PULSE 91; RESP 17; TEMP 37.4; O2SAT 97
[2025-07-27] MEDS: HEPARIN SOD INJ 5000 UNIT/ML VIAL 5250 UNIT IV (18:13)
[2025-07-27] MEDS: Heparin/D5w 25K 250 ML Ivpb 25,000 UNIT/250 ML BAG 11.783 UNIT IV (18:15)
--- NOTE | 2025-07-27 18:45 | PD.RESEVENT ---
Documentation for date of: 07/27/25 Event Note Event Note: 59 y/o F patient with significant medical Hx for DM2, HTN and breast cancer on chemotherapy coming in for evaluation of abnormal CT findings that was ordered by her oncologist. Patient asymptomatic, vitals and labs WNL. Patient was examined and chart reviewed with our attending Dr. Aguero. Patient does not need to be admitted, recommendation made to Dr. Boston in ED for discharge on p.o. med for her PE. I discussed with and supervised the internist medical doctor md physician involved in the care of this patient. Patient assessment and plan was discussed with entire medicine team, including my attending. I agree with the assessment and plan as documented by internist medical doctor md doctor. Patient care was discussed with my attending physician Dr. More Martin, PGY-3
[2025-07-27 21:11] VITALS: BP 141/83; PULSE 94; RESP 15; TEMP 37.3; O2SAT 98
--- NOTE | 2025-07-27 21:53 | ESHP_ITS ---
Documentation for date of: 07/27/25 HPI History of Present Illness History of present illness: 59-year-old female with past medical history of DM2, hypertension, and breast cancer s/p mastectomy currently on chemotherapy came into the ED after being sent in by her oncologist to an abnormal CT findings done outpatient. Patient states that she has not had any shortness of breath and that she has only had some nausea and some vomiting and epigastric pain, but she states that this has been happening after last chemo which was on the of this month. Otherwise she denied having any shortness of breath, chest pain, blood in the sputum, or any palpitations or faint spells. She was asked to come into the ED due to possibly having a clot in her lungs by her oncologist. Otherwise no other complaints at this time other than decreased appetite for the last month and feelings of weakness accompanied with some diarrhea and patient also has some depression. ED course: Initially patient came in normotensive and mildly tachycardic but afebrile. Initial labs were relevant for hemoglobin of 9, and increased alkaline phosphatase at 177. Imaging done today as outpatient of the chest abdomen/pelvis CT showed right lower lobe pulmonary embolism. In the ED patient was placed on heparin drip. PMH: As above Social Hx: Denies any smoking, drugs, or alcohol Surgical Hx: Left mastectomy Allergies: NKDA Review of Systems Review of Systems Systems Reviewed: All systems reviewed, normal except as documented Past Medical History Past Medical History CARDIAC: Positive Cardiac Disorders, Hypercholesterolemia and Hypertension REPRODUCTIVE: Positive Breast Cancer (Left) and Previous Pregnancies MUSCULOSKELETAL: Positive Musculoskeletal Disorders and Arthritis ENT: Positive Cataracts ENDOCRINE: Positive Diabetes Mellitus Type 2 PSYCHO/SOCIAL: Positive Depression OTHER HISTORY: Positive Cancer and Breast Cancer (Left) Family History FAMILY HISTORY: Positive Family Cancer Surgical History SURGICAL: Positive Lumpectomy (left mastectomy), Hysterectomy and Section Exam Vital Signs Temp Pulse Resp BP Pulse Ox O2 Del Method 99.1 F 94 15 141/83 H 98 Room Air 07/27/25 21:11 07/27/25 21:11 07/27/25 21:11 07/27/25 21:11 07/27/25 21:11 07/27/25 21:11 Narrative Exam Gen: A&O X 3, NAD HEENT: NCAT, EOMI, Pupils reactive SRIDEVI, not icteric. External ears normal. No rhinorrhea. Moist mucous membranes. Neck: Supple, full range of motion, no observable masses, No meningeal sign. Lungs: No Respiratory distress, clear bilateral. CV: RRR, no murmurs. Abdomen: Soft, nondistended, No rebound tenderness. MSK: No joint swelling, no redness, peripheral pulses presents, no peripheral edema. Skin: No rashes, petechiae, lesions. Neuro: No focal neurological deficits appreciated, sensory and motor intact. Psych: Cooperative, appropriate mood and effect. Results: Labs 07/27/25 15:30 07/27/25 15:30 Labs: Short CBC 07/27/25 Range/Units 15:30 WBC 4.5 D (3.6-11.0) Thou/mm3 Hgb 9.0 L (12.0-16.0) g/dL Hct 27.0 L (36.0-46.0) % Plt Count 166 D (140-440) Thou/mm3 BMP 07/27/25 15:30 Sodium 145 Potassium 4.1 Chloride 106 Carbon Dioxide 28.9 BUN 12 Creatinine 0.6 Glucose 166 H Calcium 8.5 Liver Function 07/27/25 Range/Units 15:30 Total Bilirubin 0.9 (0.3-1.2) mg/dL AST 26 (0-34) U/L ALT < 7 L (10-49) U/L Alkaline Phosphatase 177 H (46-116) U/L Albumin 3.8 (3.4-4.8) gm/dL Quality Measures Quality Measures VTE therapy Medications Home Medications and Allergies Home Medications ?Medication ?Instructions ?Recorded ?Confirmed ?Type glipizide 10 mg tablet 10 mg PO BID #0 tabs 6 06/11/25 History buspirone 10 mg tablet 10 mg PO Q12H 01/26/2506/11 History losartan 50 mg tablet 50 mg PO DAILY 01/26/2501/28 History metformin 1,000 mg tablet 1,000 mg PO BID 01/26/2501/28 History Allergies Allergy/AdvReac Type Severity Reaction Status Date / Time Screven And Derivatives Allergy Unknown Verified 07/27/25 14:30 Visit Medications Acetaminophen (Acetaminophen 325 Mg Tablet) 650 mg PO Q6H PRN PRN Reason: Fever >100.4 and mild pain Stop: 08/26/25 21:37 Hydrocodone Bitart/Acetaminophen (Hydrocodone/Apap 5/325 Tablet) 1 tab PO Q4HR PRN PRN Reason: PAIN SCALE 4-6 (Moderate Stop: 08/01/25 21:37 Dextrose (Dextrose 50%-Water Inj 50 Ml Syringe) 25 ml IV Q15MIN PRN PRN Reason: BG 50-70 responsive npo pt Stop: 08/26/25 21:37 Dextrose (Dextrose 50%-Water Inj 50 Ml Syringe) 50 ml IV Q15MIN PRN PRN Reason: BG <50 OR BG <70 & pt unresponsive Stop: 08/26/25 21:37 Glucagon (Glucagon Inj 1 Mg Vial) 1 mg IM Q15MIN PRN PRN Reason: BG <70, and no IV access Heparin Sodium/Dextrose (Heparin In D5w Ivpb) 25,000 unit in 250 mls @ 11.783 mls/hr IV .[id number] [facility]; Protocol Stop: 08/10/25 16:29 Last Admin: 07/27/25 18:15 Dose: 18 units/kg/hr, 11.783 mls/hr Insulin Human Lispro (Insulin Lispro (Admelog) 1 Unit/0.01 Ml Unit) 0 unit SC AC [facility]; Protocol Stop: 08/27/25 07:29 Ondansetron HCl (Ondansetron Inj 2 Mg/Ml Inj 2 Ml) 4 mg IVP Q6H PRN; Protocol PRN Reason: NAUSEA OR VOMITING Stop: 08/26/25 21:37 Pantoprazole Sodium (Pantoprazole 40 Mg Tablet) 40 mg PO QDAY [facility] Stop: 08/27/25 08:59 Discontinued Medications Heparin Sodium (Porcine) (Heparin Sod Inj 5000 Unit/Ml Vial) 5,250 unit 80 unit/kg (5250 unit) IV X1 ONE; Protocol Stop: 07/27/25 16:30 Last Admin: 07/27/25 18:13 Dose: 5,250 unit Assessment & Plan Plan 59-year-old female with past medical history of DM2, hypertension, and breast cancer s/p mastectomy currently on chemotherapy placed on observation due to right lower lobe PE and currently on heparin drip. #Pulmonary embolism, right lower lobe Patient came in after being told by outpatient oncology to come in due to abnormal CT findings. Patient denies having any shortness of breath, blood in the sputum, or any chest pain. Saturating well on room air Patient's CT imaging of the abdomen chest and pelvis showed right lower lobe pulmonary embolism Patient denies having any acute bleedings at this time. Plan: Heparin drip and transition to Eliquis within the next 24 hours if no active signs of bleeding or drop in hemoglobin. #Normocytic normochromic anemia Patient's hemoglobin 9 and has been trending downward from 11.3 on 07/07/2025. This could be secondary to chemo versus possible GI bleeding, but patient has not noticed any blood or darkening of the stools or vomiting any blood. Plan: Follow-up on morning CBCs If PRBCs are needed to be transfused patient will probably need irradiated blood products given her ongoing chemo. Consider speaking with patient's oncologist #Nausea #Diarrhea Likely chemo related Zofran and Protonix ordered Chronic diseases: #DM2 ISS and hypoglycemia protocol ordered A1c in the morning #Hypertension #Hx of left breast cancer s/p resection and on chemotherapy Disposition: Patient on observation in med/tele Diet: Carb low GI prophylaxis: protonix DVT prophylaxis: heparin Code: Full Case disclosed with Attending Dr. Soniya Parr PGY2 Disclaimer: Even though this this note was dictated by speech recognition and even though it was carefully revised there may still be minor errors in associate accountant due to voice recognition software. Attending Provider Attestation/Addendum I, Kiera Byrnes DO, attest that I was physically present for the manrique portions of the service and evaluated the patient with the resident and I reviewed and discussed the case with the resident and agree with the resident's findings and plans of care as documented above Patient is a 59-year-old female with past medical history of breast cancer status post mastectomy and 3 cycles of chemotherapy, type 2 diabetes, hypertension, depression who was sent to ED after having a CTA of chest/abdomen/pelvis done outpatient and noted to be positive for right lower pulmonary artery emboli. In the ED, patient was noted to have hemoglobin 9.0, which has been slowly downtrending since January. She reports generalized weakness and fatigue secondary to chemotherapy. Last chemo session was on the . She endorses having nausea and poor appetite since starting chemo. She also endorses having weakness and dizziness at times upon ambulating. She also states that she has shortness of breath on exertion at times. She denies any melena or blood in stool. She states that she has poor appetite due to some mild epigastric discomfort at times, that has since resolved. Patient has noted to have trace bilateral pitting edema some tenderness to palpation of the right lower extremity likely due to neuropathy. Lungs are clear to auscultation bilaterally otherwise. Patient remains on room air. She denies any syncopal or near syncopal episodes. Patient was started on a heparin drip in the ED. Will observe patient on med/tele for further workup and medical management of pulmonary embolism as it is late in the evening and patient would not be able to obtain any medications from the pharmacy at this hour. Will monitor H&H at this time. Will also start patient on Protonix for GI prophylaxis.
[2025-07-28] VITALS (14 sets, daily range): BP systolic 101–170; BP diastolic 58–90; PULSE 79–98; RESP 15–98; TEMP 36.3–37.3; O2SAT 93–100; BMI 25.2
[2025-07-28 01:27] LABS: Partial Thromboplastin Time 85.2 Seconds (22.0-36.0)
[2025-07-28 06:19] LABS: Basophils # (Auto) 0.0 Thou/mm3 (0.0-0.2); Basophils % (Auto) 3 % (0-2.5); Eosinophils # (Auto) 0.0 Thou/mm3 (0.0-0.5); Eosinophils % (Auto) 1 % (0-10); Hematocrit 22.6 % (36.0-46.0); Immature Granulocytes Auto 0.14 Thou/mm3 (0.00-0.00); Lymphocytes # (Auto) 0.6 Thou/mm3 (1.0-4.8); Lymphocytes % (Auto) 41 % (10-50); Mean Corpuscular HGB Conc 34.1 g/dl (31.0-37.0); Mean Corpuscular Hemoglobin 30.1 pg (25.0-35.0); Mean Corpuscular Volume 88 fL (80-100); Monocytes # (Auto) 0.0 Thou/mm3 (0.0-0.8); Monocytes % (Auto) 2 % (0-12); Neutrophils # (Auto) 0.7 Thou/mm3 (1.8-7.7); Neutrophils % (Auto) 44 % (37-80); Nucleated Red Blood Cell # 0.00 Thou/mm3 (0.00-0.00); Nucleated Red Blood Cell % 0 /100 WBC (0); Platelet Count 132 Thou/mm3 (140-440); RDW Standard Deviation 45.8 fL (36.4-46.3); Red Blood Count 2.56 Miln/mm3 (4.00-5.20)
[2025-07-28] MEDS: Magnesium Sulfate 2 GM Ivpb 2 GM/50 ML BAG IV (06:30)
--- NOTE | 2025-07-28 06:43 | PC.NURSE ---
MT reported that pt had a 5 sec run of V-tach, Dr Huynh was made aware, MD came at bedside to assess pt. Mag 2 gm IVPB and mag labs ordered for pt.
[2025-07-28 06:51] LABS: Glucose Estimated Average 171 mg/dL (80-131); Hemoglobin A1C 7.6 % Hgb (4.8-6.0)
[2025-07-28 06:57] LABS: Albumin, Serum 3.3 gm/dL (3.4-4.8); Albumin/Globulin Ratio 1.6 (1.2-2.2); Alkaline Phosphatase 137 U/L (46-116); Anion Gap 9 (7-16); Aspartate Amino Transferase 19 U/L (0-34); BUN/Creatinine Ratio 22 Ratio (12-20); Bilirubin,Total 0.6 mg/dL (0.3-1.2); Blood Urea Nitrogen 11 mg/dL (9-23); Calcium 8.2 mg/dL (8.3-10.6); Calcium (Corrected) 8.8 mg/dL (8.5-10.1); Carbon Dioxide 28.8 mMol/L (20.0-31.0); Chloride 107 mMol/L (98-107); Creatinine (Component) 0.5 mg/dL (0.6-1.3); Estimated Creatinine Clearance 106.9 mL/min (>60); Globulin 2.1 gm/dL (2.3-3.5); Glucose 149 mg/dL (74-106); Magnesium 1.6 mg/dL (1.6-2.6); Osmolality,Calculated 291 (275-295); Potassium 3.9 mMol/L (3.4-5.1); Sodium 145 mMol/L (136-145); Total Protein 5.4 gm/dL (5.7-8.2); eGFR > 60 See Note
[2025-07-28 07:04] LABS: Alanine Aminotransferase < 7 U/L (10-49)
--- NOTE | 2025-07-28 07:15 | PC.NURSE ---
Dr. Huynh was made aware that pt is requesting her BP and depression meds. was made aware that med rec is done.
[2025-07-28 07:18] LABS: Hemoglobin 7.7 g/dL (12.0-16.0); White Blood Count 1.5 Thou/mm3 (3.6-11.0)
--- NOTE | 2025-07-28 08:15 | PC.NURSE ---
Addendum entered by Jyotsna Javier RN 07/28/25 10:19: MD notified repeat Hgb resulted 8.3 , Hold transfusion a this time. Original Note: explained blood transfusion to patient and daughter at bedside. Blood transfusion pamphlet given. Consent for blood transfusion obtained.
[2025-07-28 08:41] LABS: Hematocrit 24.6 % (36.0-46.0)
[2025-07-28 08:43] LABS: Hemoglobin 8.3 g/dL (12.0-16.0)
[2025-07-28 09:04] LABS: Partial Thromboplastin Time 60.4 Seconds (22.0-36.0)
--- NOTE | 2025-07-28 10:34 | PD.RESPRO ---
Documentation for date of: 07/28/25 Exam Vital Signs Temp Pulse Resp BP Pulse Ox O2 Del Method 99.2 F 87 17 129/73 93 L Room Air 07/28/25 08:00 07/28/25 08:00 07/28/25 08:00 07/28/25 08:00 07/28/25 08:00 07/28/25 08:00 Objective Labs 07/28/25 08:21 07/28/25 05:12 Labs: Laboratory Results - last 24 hr 07/27/25 07/28/25 07/28/25 15:30 00:18 05:12 WBC 4.5 D 1.5 L D RBC 3.03 L 2.56 L Hgb 9.0 L 7.7 L Hct 27.0 L 22.6 L MCV 89 88 MCH 29.7 30.1 MCHC 33.3 34.1 RDW Std Deviation 47.4 H 45.8 Plt Count 166 D 132 L D Neut % (Auto) 73 44 Lymph % (Auto) 14 41 Kimble % (Auto) 1 2 Eos % (Auto) 0 1 Baso % (Auto) 0 3 H Neut # (Auto) 3.3 0.7 L Lymph # (Auto) 0.6 L 0.6 L Kimble # (Auto) 0.0 0.0 Eos # (Auto) 0.0 0.0 Baso # (Auto) 0.0 0.0 Immature Gran # (Auto) 0.53 H 0.14 H Absolute Nucleated RBC 0.00 0.00 Immature Gran % 12 H 9 H Nucleated RBC % 0 0 PT 11.2 INR 1.1 APTT 25.9 85.2 H D Sodium 145 145 Potassium 4.1 3.9 Chloride 106 107 Carbon Dioxide 28.9 28.8 Anion Gap 10 9 BUN 12 11 Creatinine 0.6 0.5 L Estim Creat Clear Calc 89.6 106.9 eGFR > 60 > 60 BUN/Creatinine Ratio 20 22 H Glucose [address] Glu mg/dL 171 H Hemoglobin A1c 7.6 H Calculated Osmolality 292 291 Calcium 8.5 8.2 L Corrected Calcium 8.7 8.8 Magnesium 1.6 Total Bilirubin 0.9 0.6 AST 26 19 ALT < 7 L < 7 L Alkaline Phosphatase 177 H 137 H D Total Protein 6.2 5.4 L Albumin 3.8 3.3 L D Globulin 2.4 2.1 L Albumin/Globulin Ratio 1.6 1.6 Blood Type Antibody Screen Crossmatch Blood Bank Wristband ID 07/28/25 08:21 WBC RBC Hgb 8.3 L Hct 24.6 L MCV MCH MCHC RDW Std Deviation Plt Count Neut % (Auto) Lymph % (Auto) Kimble % (Auto) Eos % (Auto) Baso % (Auto) Neut # (Auto) Lymph # (Auto) Kimble # (Auto) Eos # (Auto) Baso # (Auto) Immature Gran # (Auto) Absolute Nucleated RBC Immature Gran % Nucleated RBC % PT INR APTT 60.4 H D Sodium Potassium Chloride Carbon Dioxide Anion Gap BUN Creatinine Estim Creat Clear Calc eGFR BUN/Creatinine Ratio Glucose Estimated Ave Glu mg/dL Hemoglobin A1c Calculated Osmolality Calcium Corrected Calcium Magnesium Total Bilirubin AST ALT Alkaline Phosphatase Total Protein Albumin Globulin Albumin/Globulin Ratio Blood Type A Positive Antibody Screen NEGATIVE Crossmatch See Detail Blood Bank Wristband ID Yes Quality Measures Quality Measures VTE therapy Assessment & Plan Assessment Current Active Medications: Generic Name Dose Route Start Last Admin Trade Name Ana Maria PRN Reason Stop Dose Admin Acetaminophen 650 mg 07/27/25 21:38 Acetaminophen 325 Mg Tablet PO 08/26/25 21:37 Q6H PRN Fever >100.4 and mild pain Hydrocodone Bitart/Acetaminophen 1 tab 07/27/25 21:38 Hydrocodone/Apap 5/325 Tablet PO 08/01/25 21:37 Q4HR PRN PAIN SCALE 4-6 (Moderate Buspirone HCl 10 mg 07/28/25 08:15 07/28/25 08:22 Buspirone Hcl 5 Mg Tablet PO 08/27/25 08:14 10 mg BID FÉLIX Administration Dextrose 25 ml 07/27/25 21:38 Dextrose 50%-Water Inj 50 Ml Syringe IV 08/26/25 21:37 Q15MIN PRN BG 50-70 responsive npo pt Dextrose 50 ml 07/27/25 21:38 Dextrose 50%-Water Inj 50 Ml Syringe IV 08/26/25 21:37 Q15MIN PRN BG <50 OR BG <70 & pt unresponsive Glucagon 1 mg 07/27/25 21:38 Glucagon Inj 1 Mg Vial IM Q15MIN PRN BG <70, and no IV access Heparin Sodium/Dextrose 25,000 unit in 250 mls @ 11.783 mls/hr 07/27/25 16:30 07/28/25 08:13 Heparin In D5w Ivpb IV 08/10/25 16:29 0 units/kg/hr On Hold: 07/28/25 07:41 .[id number] FÉLIX 0 mls/hr Protocol Titration 18 UNITS/KG/HR Insulin Human Lispro 0 unit 07/28/25 07:30 07/28/25 07:30 Insulin Lispro (Admelog) 1 Unit/0.01 Ml Unit SC 08/27/25 07:29 Not Given AC FÉLIX Protocol Ondansetron HCl 4 mg 07/27/25 21:38 Ondansetron Inj 2 Mg/Ml Inj 2 Ml IVP 08/26/25 21:37 Q6H PRN NAUSEA OR VOMITING Protocol Pantoprazole Sodium 40 mg 07/28/25 09:00 07/28/25 08:21 Pantoprazole Inj 40 Mg Vial IVP 08/27/25 08:59 40 mg BID FÉLIX Administration
--- NOTE | 2025-07-28 11:43 | XR_ITS ---
Examination: Abdomen AP single view Technique: AP portable supine abdomen, single view Exam date and time: July 28, 2025, 1346 hours INDICATIONS: Inpatient with constipation. FINDINGS: Moderate stool throughout the colon Mild small bowel ileus No free air No obstruction IMPRESSION: Moderate stool throughout the colon Mild small bowel ileus
--- NOTE | 2025-07-28 12:02 | XR_ITS ---
Examination: Venous duplex lower extremity sonogram, bilateral. Date and time of exam: July 28, 2025, 1237 hours INDICATIONS: Positive for pulmonary artery emboli on CT chest study July 27, 2025, bilateral leg swelling and pain years, breast cancer diagnosis mastectomy January 2025 Technique: Multiple sonographic images of the deep venous system have been obtained. B-mode/2-D grayscale imaging of vascular structures and Doppler spectral analysis (waveforms) and color performed Both legs are examined. Findings: Deep venous systems do not demonstrate abnormal echogenicity. All visualized deep veins exhibit compressibility. All visualized deep veins exhibit augmentation. Impression: Negative for deep vein thrombosis
--- NOTE | 2025-07-28 13:03 | PD.RESPRO ---
Documentation for date of: 07/28/25 Subjective Subjective Interval history: No acute events events. Seen and examined with family at bedside. Reports feeling fatigued and tired but denies shortness of breath or chest pain. Denies fever, chills, headaches, chest pain, sob, cough, GI or urinary symptoms. He has not had a bowel movement and will waiting FOBT to rule out GI bleed given significant drop in hemoglobin overnight to starting HEPARIN drip which has been placed on hold for now. Will awaiting further recommendations from GI. 2 units of PRBCs have been ordered and are currently on hold. Exam Vital Signs Temp Pulse Resp BP Pulse Ox O2 Del Method 99.2 F 87 17 129/73 93 L Room Air 07/28/25 08:00 07/28/25 08:00 07/28/25 08:00 07/28/25 08:00 07/28/25 08:00 07/28/25 08:00 Narrative Exam Gen: A&O X 3, NAD HEENT: NCAT, EOMI, Pupils reactive SRIDEVI, not icteric. External ears normal. No rhinorrhea. Moist mucous membranes. Neck: Supple, full range of motion, no observable masses, No meningeal sign. Lungs: No Respiratory distress, clear bilateral. CV: RRR, no murmurs. Abdomen: Soft, nondistended, No rebound tenderness. MSK: No joint swelling, no redness, peripheral pulses presents, no peripheral edema. Skin: No rashes, petechiae, lesions. Neuro: No focal neurological deficits appreciated, sensory and motor intact. Psych: Cooperative, appropriate mood and effect. Objective Labs 08/01/25 08:12 08/01/25 08:12 Labs: Laboratory Results - last 24 hr 07/27/25 07/28/25 07/28/25 15:30 00:18 05:12 WBC 4.5 D 1.5 L D RBC 3.03 L 2.56 L Hgb 9.0 L 7.7 L Hct 27.0 L 22.6 L MCV 89 88 MCH 29.7 30.1 MCHC 33.3 34.1 RDW Std Deviation 47.4 H 45.8 Plt Count 166 D 132 L D Neut % (Auto) 73 44 Lymph % (Auto) 14 41 [place] % (Auto) 1 2 Eos % (Auto) 0 1 Baso % (Auto) 0 3 H Neut # (Auto) 3.3 0.7 L Lymph # (Auto) 0.6 L 0.6 L [place] # (Auto) 0.0 0.0 Eos # (Auto) 0.0 0.0 Baso # (Auto) 0.0 0.0 Immature Gran # (Auto) 0.53 H 0.14 H Absolute Nucleated RBC 0.00 0.00 Immature Gran % 12 H 9 H Nucleated RBC % 0 0 PT 11.2 INR 1.1 APTT 25.9 85.2 H D Sodium 145 145 Potassium 4.1 3.9 Chloride 106 107 Carbon Dioxide 28.9 28.8 Anion Gap 10 9 BUN 12 11 Creatinine 0.6 0.5 L Estim Creat Clear Calc 89.6 106.9 eGFR > 60 > 60 BUN/Creatinine Ratio 20 22 H Glucose [address] Glu mg/dL 171 H Hemoglobin A1c 7.6 H Calculated Osmolality 292 291 Calcium 8.5 8.2 L Corrected Calcium 8.7 8.8 Magnesium 1.6 Total Bilirubin 0.9 0.6 AST 26 19 ALT < 7 L < 7 L Alkaline Phosphatase 177 H 137 H D Total Protein 6.2 5.4 L Albumin 3.8 3.3 L D Globulin 2.4 2.1 L Albumin/Globulin Ratio 1.6 1.6 Blood Type Antibody Screen Crossmatch Blood Bank Wristband ID 07/28/25 08:21 WBC RBC Hgb 8.3 L Hct 24.6 L MCV MCH MCHC RDW Std Deviation Plt Count Neut % (Auto) Lymph % (Auto) [place] % (Auto) Eos % (Auto) Baso % (Auto) Neut # (Auto) Lymph # (Auto) [place] # (Auto) Eos # (Auto) Baso # (Auto) Immature Gran # (Auto) Absolute Nucleated RBC Immature Gran % Nucleated RBC % PT INR APTT 60.4 H D Sodium Potassium Chloride Carbon Dioxide Anion Gap BUN Creatinine Estim Creat Clear Calc eGFR BUN/Creatinine Ratio Glucose Estimated Ave Glu mg/dL Hemoglobin A1c Calculated Osmolality Calcium Corrected Calcium Magnesium Total Bilirubin AST ALT Alkaline Phosphatase Total Protein Albumin Globulin Albumin/Globulin Ratio Blood Type A Positive Antibody Screen NEGATIVE Crossmatch See Detail Blood Bank Wristband ID Yes Quality Measures Quality Measures VTE therapy Assessment & Plan Assessment Current Active Medications: Generic Name Dose Route Start Last Admin Trade Name Freq PRN Reason Stop Dose Admin Acetaminophen 650 mg 07/27/25 21:38 Acetaminophen 325 Mg Tablet PO 08/26/25 21:37 Q6H PRN Fever >100.4 and mild pain Hydrocodone Bitart/Acetaminophen 1 tab 07/27/25 21:38 Hydrocodone/Apap 5/325 Tablet PO 08/01/25 21:37 Q4HR PRN PAIN SCALE 4-6 (Moderate Buspirone HCl 10 mg 07/28/25 08:15 07/28/25 08:22 Buspirone Hcl 5 Mg Tablet PO 08/27/25 08:14 10 mg BID FÉLIX Administration Dextrose 25 ml 07/27/25 21:38 Dextrose 50%-Water Inj 50 Ml Syringe IV 08/26/25 21:37 Q15MIN PRN BG 50-70 responsive npo pt Dextrose 50 ml 07/27/25 21:38 Dextrose 50%-Water Inj 50 Ml Syringe IV 08/26/25 21:37 Q15MIN PRN BG <50 OR BG <70 & pt unresponsive Glucagon 1 mg 07/27/25 21:38 Glucagon Inj 1 Mg Vial IM Q15MIN PRN BG <70, and no IV access Heparin Sodium/Dextrose 25,000 unit in 250 mls @ 11.783 mls/hr 07/27/25 16:30 07/28/25 08:13 Heparin In D5w Ivpb IV 08/10/25 16:29 0 units/kg/hr On Hold: 07/28/25 07:41 .[id number] FÉLIX 0 mls/hr Protocol Titration 18 UNITS/KG/HR Insulin Human Lispro 0 unit 07/28/25 07:30 07/28/25 07:30 Insulin Lispro (Admelog) 1 Unit/0.01 Ml Unit SC 08/27/25 07:29 Not Given AC [facility], [facility]–1983 Protocol Ondansetron HCl 4 mg 07/27/25 21:38 Ondansetron Inj 2 Mg/Ml Inj 2 Ml IVP 08/26/25 21:37 Q6H PRN NAUSEA OR VOMITING Protocol Pantoprazole Sodium 40 mg 07/28/25 09:00 07/28/25 08:21 Pantoprazole Inj 40 Mg Vial IVP 08/27/25 08:59 40 mg BID ÉFLIX Administration Plan 59-year-old female with past medical history of DM2, hypertension, and breast cancer s/p mastectomy currently on chemotherapy placed on observation due to right lower lobe PE and currently HEPARIN on hold for suspected acute blood loss anemia Pulmonary embolism, right lower lobe Hx of breast cancer s/p mastectomy She had incidental pulmonary embolism right lower lobe seen on CT which was ordered outpatient by her oncologist. Otherwise she is asymptomatic without shortness of breath or chest pain. ED has started on HEPARIN drip and will be admitted for continuous HEPARIN drip and overnight monitoring with the plan to transition to DOAC or NOAC. Venous Doppler with no evidence of LE DVT bilaterally. However, HEPARIN was held given drastic drop in her hemoglobin which we are currently working up. Otherwise she is satting well without evidence of pulmonary distress or chest pain. ? Continue holding HEPARIN ? Continue oxygen. Suspected GI loss anemia Pancytopenia Moderate neutropenia Nausea and vomiting UTI Admission Hgb 9.0, HCT 27, PLT 166 WBC 4.5. Likely she has chemo induced marrow suppression. However this a.m. CBC showed Hgb 7.7, PLT 132, WBC 1.5 with absolute neutrophil 0.7 meeting criteria for moderate neutropenia. Repeat hemoglobin was 8.3 and she has not required transfusions for now. HEPARIN drip has been held given high suspicion for GI bleed, no other obvious source at this point. We are currently pending FOBT and further recommendations from GI. She denies recent GI bleeding or dark stool. As for moderate neutropenia, she has diffuse abdominal pain and UA suggested UTI. She also had nausea several hours diarrhea previously she which appeared to have resolved today. Given history of cancer and moderate neutropenia we'll initiate ZOSYN for now. Otherwise she remains afebrile and aseptic. Will follow-up with urine and blood culture. CT abdomen showed no evidence of acute abdominal pathology. May need EPO or NEUTROGEN. ? Continue ZOSYN (07/28 to present) ? Follow-up blood and urine culture ? Follow-up reticulocytes, LDH, iron panel, smear ? Continue NPO ? Continue PROTONIX BID ? Pending FOBT ? Pending further recommendations from GI ? Transfuse if hemoglobin less than 7 ? ANTIEMETICS PRN ? Continue NS at 100 cc/HR T2DM A1c 7.6. GLUCOSE within acceptable range. ? INSULIN sliding scale ? Accu-Cheks Hx hypertension Currently normotensive ? Continue monitoring ? Initiate antihypertensives as indicated Health maintenance Diet: NPO GI prophylaxis: PROTONIX DVT prophylaxis: Contraindicated Antibiotics: ZOSYN CODE STATUS: Full code Disposition: Will resume pulmonary embolism treatment once acute PE ruled out Case was discussed with attending physician. Deepika Mendiola DO PGY II This document was transcribed using voice recognition technology. Minor inaccuracies may be present. Attending Provider Attestation/Addendum Kiera Mcclure DO, attest that I was physically present for the manrique portions of the service and evaluated the patient with the resident and I reviewed and discussed the case with the resident and agree with the resident's findings and plans of care as documented above Patient seen and evaluated this AM. Daughter at bedside. Explained to patient and daughter that her hemoglobin had dropped from 9 to 7.7. Due to patient?s previous complaint of epigastric discomfort, there is concern for bleeding peptic ulcer or gastritis leading to gradual decline in Hgb. Explained to patient and daughter that there is concern for bleeding exacerbated by heparin drip and currently pending repeat of Hgb. If Hgb continues to decline, patient will need a blood transfusion. Patient is depressed and withdrawn.??She does not want to be poked again as there was a lot of difficulty with obtaining IV access, per nurse at bedside. However, patient and daughter are agreeable to blood transfusion if needed. Risks vs benefits of blood transfusion were discussed with pt and daughter and consent was obtained. Will obtain KUB as daughter states that the patient has not had a BM for several days and also complains of abdominal pain leading to poor PO intake. Will also consult GI due to downtrending Hgb. Pt is otherwise hemodynamically stable at this time. Pending repeat Hgb, if downtrending, may have to hold heparin drip. Patient remains on room air and denies any shortness of breaht. Lungs are CTAB/L. Trace pitting edema in b/l LE and tenderness on palpation, but no erythema, warmth or discolouration. Port in right upper chest noted, no signs of cellulitis? Delayed signature due to inability to log onto [employer] from remote access. Attestation was written within 24h of seeing patient.
[2025-07-28] MEDS: SODIUM CHLORIDE 0.9% 1000 ML 1,000 ML 100 ML IV (15:13)
[2025-07-28] MEDS: PIPER/TAZO INJ 4.5 GM in SODIUM CHLORIDE 0.9% (POP) 100 ML IV (15:13)
[2025-07-28 17:30] LABS: Path Review Blood Smear Sent to Pathologist
--- NOTE | 2025-07-28 18:14 | PD.IMCONS ---
HPI Data of Consult Requesting Physician: Jameel Aguero MD Primary Care Provider: Uzair Diaz MD Consult Narrative Reason for consult: Drop in H&H to 7.7 and 22.3 History of present illness: 59 years of female was found to have pulmonary embolism on CTA chest abdomen and pelvis heparin has been put on hold as the hemoglobin dropped from a baseline of 9.0 and 27.0-7.7 and 22.3 No shani blood has been seen anywhere I have been consulted cc:: cc: Jameel Aguero MD Review of Systems Review of Systems Systems Reviewed: All systems reviewed, normal except as documented Past Medical History Surgical History OTHER SURGICAL HX: Diabetes mellitus type 2 Essential hypertension Anxiety neurosis Meds Home Medications and Allergies Home Medications ?Medication ?Instructions ?Recorded ?Confirmed ?Type glipizide 10 mg tablet 10 mg PO BID #0 tabs 06/27/16 07/28/25 History buspirone 10 mg tablet 10 mg PO Q12H 01/26/25 07/28/25 History losartan 50 mg tablet 50 mg PO DAILY 01/26/25 07/28/25 History metformin 1,000 mg tablet 1,000 mg PO BID 01/26/25 07/28/25 History ondansetron HCl 8 mg tablet 8 mg PO Q8H 07/28/25 07/28/25 History Allergies Allergy/AdvReac Type Severity Reaction Status Date / Time [place] And Derivatives Allergy Unknown Verified 07/27/25 14:30 Exam Vital Signs Temp Pulse Resp BP Pulse Ox O2 Del Method 98.2 F 84 17 138/75 H 96 Room Air 07/28/25 16:00 07/28/25 16:00 07/28/25 16:00 07/28/25 16:00 07/28/25 16:00 07/28/25 16:00 Constitutional Comments: Alert oriented Routine Respiratory Exam Comments: Normal to auscultation Routine Abdominal Exam Comments: Soft nontender Results Labs 07/28/25 08:21 07/28/25 05:12 Labs: Short CBC 07/28/25 07/28/25 Range/Units 05:12 08:21 WBC 1.5 L D (3.6-11.0) Thou/mm3 Hgb 7.7 L 8.3 L (12.0-16.0) g/dL Hct 22.6 L 24.6 L (36.0-46.0) % Plt Count 132 L D (140-440) Thou/mm3 BMP 07/28/25 05:12 Sodium 145 Potassium 3.9 Chloride 107 Carbon Dioxide 28.8 BUN 11 Creatinine 0.5 L Glucose 149 H Calcium 8.2 L Liver Function 07/28/25 Range/Units 05:12 Total Bilirubin 0.6 (0.3-1.2) mg/dL AST 19 (0-34) U/L ALT < 7 L (10-49) U/L Alkaline Phosphatase 137 H D (46-116) U/L Albumin 3.3 L D (3.4-4.8) gm/dL Assessment and Plan Additional Assessment & Plan Additional Plan: # Anemia of blood loss # Pulmonary embolism # Diabetes mellitus type 2 # Essential hypertension # Anxiety neurosis Plan N.p.o. Consent obtained for fiberoptic esophagogastroduodenoscopy therapeutic intervention under intravenous moderate sedation if EGD is negative start the patient on heparin will prepare with clear liquid diet and GoLytely for a colonoscopy tomorrow Thank you very much for the opportunity to participate in care of this patient
[2025-07-28] MEDS: NA SU/NAHCO3/KC/PEG (Golytely) 4,000 ML BTL 4000 ML PO (20:34)
[2025-07-28] MEDS: Heparin/D5w 25K 250 ML Ivpb 25,000 UNIT/250 ML BAG 10.473 UNIT IV (21:02)
[2025-07-28] MEDS: PIPER/TAZO 3.375 GM PREMIX 3.375 GM/50 ML BAG IV (22:33)
--- NOTE | 2025-07-28 22:44 | PC.NURSE ---
Called Dr Moreno due to patient having small amount of blood on paper after having BM and currently being on heparin drip. Dr Moreno instructed me to continue monitoring and if patient has blood on paper after next BM to call him back. Heparin drop not stopped.
--- NOTE | 2025-07-28 23:01 | PC.NURSE ---
Called Dr Moreno due to patient having blood on paper after BM for the second time. Dr Moreno came to evaluate pt at bedside, he ordered H&H lab, however, heparin drip not stopped at this time.
[2025-07-28 23:37] LABS: Hematocrit 25.7 % (36.0-46.0)
[2025-07-28 23:38] LABS: Hemoglobin 8.6 g/dL (12.0-16.0)
[2025-07-29] VITALS (23 sets, daily range): BP systolic 123–175; BP diastolic 56–91; PULSE 68–104; RESP 13–98; TEMP 36.2–37.1; O2SAT 94–100; BMI 25.2
[2025-07-29 03:50] LABS: Basophils # (Auto) 0.0 Thou/mm3 (0.0-0.2); Basophils % (Auto) 2 % (0-2.5); Eosinophils # (Auto) 0.0 Thou/mm3 (0.0-0.5); Eosinophils % (Auto) 0 % (0-10); Hematocrit 22.7 % (36.0-46.0); Immature Granulocytes Auto 0.09 Thou/mm3 (0.00-0.00); Lymphocytes # (Auto) 0.6 Thou/mm3 (1.0-4.8); Lymphocytes % (Auto) 62 % (10-50); Mean Corpuscular HGB Conc 33.9 g/dl (31.0-37.0); Mean Corpuscular Hemoglobin 29.5 pg (25.0-35.0); Mean Corpuscular Volume 87 fL (80-100); Monocytes # (Auto) 0.1 Thou/mm3 (0.0-0.8); Monocytes % (Auto) 5 % (0-12); Neutrophils # (Auto) 0.2 Thou/mm3 (1.8-7.7); Neutrophils % (Auto) 21 % (37-80); Nucleated Red Blood Cell # 0.00 Thou/mm3 (0.00-0.00); Nucleated Red Blood Cell % 0 /100 WBC (0); Platelet Count 130 Thou/mm3 (140-440); RDW Standard Deviation 44.0 fL (36.4-46.3); Red Blood Count 2.61 Miln/mm3 (4.00-5.20)
[2025-07-29 03:55] LABS: Hemoglobin 7.7 g/dL (12.0-16.0); White Blood Count 0.9 Thou/mm3 (3.6-11.0)
[2025-07-29 04:24] LABS: Alanine Aminotransferase 7 U/L (10-49); Albumin, Serum 3.6 gm/dL (3.4-4.8); Albumin/Globulin Ratio 1.6 (1.2-2.2); Alkaline Phosphatase 129 U/L (46-116); Anion Gap 11 (7-16); Aspartate Amino Transferase 19 U/L (0-34); BUN/Creatinine Ratio 16 Ratio (12-20); Bilirubin,Total 0.8 mg/dL (0.3-1.2); Blood Urea Nitrogen 8 mg/dL (9-23); Calcium 8.4 mg/dL (8.3-10.6); Calcium (Corrected) 8.7 mg/dL (8.5-10.1); Carbon Dioxide 28.0 mMol/L (20.0-31.0); Chloride 106 mMol/L (98-107); Creatinine (Component) 0.5 mg/dL (0.6-1.3); Estimated Creatinine Clearance 106.9 mL/min (>60); Globulin 2.2 gm/dL (2.3-3.5); Glucose 136 mg/dL (74-106); Osmolality,Calculated 289 (275-295); Partial Thromboplastin Time 56.5 Seconds (22.0-36.0); Potassium 3.7 mMol/L (3.4-5.1); Sodium 145 mMol/L (136-145); Total Protein 5.8 gm/dL (5.7-8.2); eGFR > 60 See Note
[2025-07-29] MEDS: PIPER/TAZO 3.375 GM PREMIX 3.375 GM/50 ML BAG IV ×2 (05:29→22:27)
[2025-07-29] MEDS: SODIUM CHLORIDE 0.9% 1000 ML 1,000 ML 100 ML IV ×3 (05:40→22:48)
[2025-07-29 06:55] LABS: Immature Reticulocyte Fraction 0.9 % (3.0-15.9); Reticulocyte % (Auto) 0.3 % (0.5-1.5); Reticulocyte Absolute Auto 8.5 Biln/L (25.0-75.0); Reticulocyte Hgb Content 40.2 pg (28.0-35.0)
[2025-07-29 07:17] LABS: LDH (Lactate Dehydrogenase) 478 U/L (120-246)
[2025-07-29 07:36] LABS: Iron 129 mcg/dL (50-170); Percent Iron Saturation 59 % (20-55); Total Iron Binding Capacity 218 mcg/dL (250-425); Unsaturated Iron Binding 89 (225-295)
--- NOTE | 2025-07-29 10:56 | ESPR_ITS ---
<Statement entered by Jameel Aguero MD - 08/03/25 07:57> I reviewed above note and agree with findings and plans. I have also personally examined the patient with medicine team and went over assessment and plan with medical team including international affairs vice president and resident physician. Documentation for date of: 07/29/25 Subjective Subjective Interval history: No acute overnight events. Reports feeling better this morning. Denies fever, chills, headaches, chest pain, sob, cough, GI or urinary symptoms. This a.m. she was noted to have shani red blood per rectum. GI is on board and planning for colonoscopy, currently she is on GOLYTELY cleanse. Hemoglobin down trended to 7.7, started her WBCs (currently 0.9). Remains afebrile. Exam Vital Signs Temp Pulse Resp BP Pulse Ox O2 Del Method O2 Flow Rate 98.3 F 91 16 148/69 H 94 L Room Air 3 07/29/25 08:43 07/29/25 08:43 07/29/25 08:43 07/29/25 08:43 07/29/25 08:43 07/29/25 08:43 07/28/25 19:25 Narrative Exam Gen: A&O X 3, NAD HEENT: NCAT, EOMI, Pupils reactive SRIDEVI, not icteric. External ears normal. No rhinorrhea. Moist mucous membranes. Neck: Supple, full range of motion, no observable masses, No meningeal sign. Lungs: No Respiratory distress, clear bilateral. CV: RRR, no murmurs. Abdomen: Soft, nondistended, No rebound tenderness. MSK: No joint swelling, no redness, peripheral pulses presents, no peripheral edema. Skin: No rashes, petechiae, lesions. Neuro: No focal neurological deficits appreciated, sensory and motor intact. Psych: Cooperative, appropriate mood and effect. Objective Labs 07/29/25 03:26 07/29/25 03:26 Labs: Laboratory Results - last 24 hr 07/28/25 07/28/25 07/29/25 05:12 23:16 03:24 WBC RBC Hgb 8.6 L Hct 25.7 L MCV MCH MCHC RDW Std Deviation Plt Count Neut % (Auto) Lymph % (Auto) [place] % (Auto) Eos % (Auto) Baso % (Auto) Neut # (Auto) Lymph # (Auto) [place] # (Auto) Eos # (Auto) Baso # (Auto) Immature Gran # (Auto) Absolute Nucleated RBC Immature Gran % Nucleated RBC % Smear Path Review Sent to Pathologist Retic Count (auto) Absolute Retic Immature Retic Fraction Retic Hgb Content CHr APTT Sodium Potassium Chloride Carbon Dioxide Anion Gap BUN Creatinine Estim Creat Clear Calc eGFR BUN/Creatinine Ratio Glucose Calculated Osmolality Calcium Corrected Calcium Iron 129 TIBC 218 L Iron Saturation 59 H Unsat Iron Binding 89 L Total Bilirubin AST ALT Alkaline Phosphatase Lactate Dehydrogenase 478 H Total Protein Albumin Globulin Albumin/Globulin Ratio 07/29/25 03:26 WBC 0.9 L* RBC 2.61 L Hgb 7.7 L Hct 22.7 L MCV 87 MCH 29.5 MCHC 33.9 RDW Std Deviation 44.0 Plt Count 130 L Neut % (Auto) 21 L Lymph % (Auto) 62 H [place] % (Auto) 5 Eos % (Auto) 0 Baso % (Auto) 2 Neut # (Auto) 0.2 L Lymph # (Auto) 0.6 L [place] # (Auto) 0.1 Eos # (Auto) 0.0 Baso # (Auto) 0.0 Immature Gran # (Auto) 0.09 H Absolute Nucleated RBC 0.00 Immature Gran % 10 H Nucleated RBC % 0 Smear Path Review Retic Count (auto) 0.3 L Absolute Retic 8.5 L Immature Retic Fraction 0.9 L Retic Hgb Content CHr 40.2 H APTT 56.5 H Sodium 145 Potassium 3.7 Chloride 106 Carbon Dioxide 28.0 Anion Gap 11 BUN 8 L Creatinine 0.5 L Estim Creat Clear Calc 106.9 eGFR > 60 BUN/Creatinine Ratio 16 Glucose 136 H Calculated Osmolality 289 Calcium 8.4 Corrected Calcium 8.7 Iron TIBC Iron Saturation Unsat Iron Binding Total Bilirubin 0.8 AST 19 ALT 7 L Alkaline Phosphatase 129 H Lactate Dehydrogenase Total Protein 5.8 Albumin 3.6 Globulin 2.2 L Albumin/Globulin Ratio 1.6 Quality Measures Quality Measures VTE therapy Assessment & Plan Assessment Current Active Medications: Generic Name Dose Route Start Last Admin Trade Name Freq PRN Reason Stop Dose Admin Acetaminophen 650 mg 07/27/25 21:38 Acetaminophen 325 Mg Tablet PO 08/26/25 21:37 Q6H PRN Fever >100.4 and mild pain Protocol Hydrocodone Bitart/Acetaminophen 1 tab 07/27/25 21:38 Hydrocodone/Apap 5/325 Tablet PO 08/01/25 21:37 Q4HR PRN PAIN SCALE 4-6 (Moderate Buspirone HCl 10 mg 07/28/25 08:15 07/29/25 09:16 Buspirone Hcl 5 Mg Tablet PO 08/27/25 08:14 10 mg BID FÉLIX Administration Dextrose 25 ml 07/27/25 21:38 Dextrose 50%-Water Inj 50 Ml Syringe IV 08/26/25 21:37 Q15MIN PRN BG 50-70 responsive npo pt Dextrose 50 ml 07/27/25 21:38 Dextrose 50%-Water Inj 50 Ml Syringe IV 08/26/25 21:37 Q15MIN PRN BG <50 OR BG <70 & pt unresponsive Glucagon 1 mg 07/27/25 21:38 Glucagon Inj 1 Mg Vial IM Q15MIN PRN BG <70, and no IV access Heparin Sodium/Dextrose 25,000 unit in 250 mls @ 11.783 mls/hr 07/27/25 16:30 07/29/25 04:46 Heparin In D5w Ivpb IV 08/10/25 16:29 16 units/kg/hr On Hold: 07/29/25 06:48 .[id number] FÉLIX 10.473 mls/hr Protocol Titration 18 UNITS/KG/HR Piperacillin/Tazobactam/Dextrose 3.375 gm in 50 mls @ 12.5 mls/hr 07/28/25 22:00 07/29/25 05:29 Zosyn IV 08/04/25 21:59 12.5 mls/hr Q8HR FÉLIX Administration Protocol Sodium Chloride 1,000 mls @ 100 mls/hr 07/28/25 14:45 07/29/25 10:55 Ns IV 08/27/25 14:44 100 mls/hr .Q10H FÉLIX Administration Insulin Human Lispro 0 unit 07/28/25 07:30 07/29/25 07:37 Insulin Lispro (Admelog) 1 Unit/0.01 Ml Unit SC 08/27/25 07:29 Not Given AC FÉLIX Protocol Ondansetron HCl 4 mg 07/27/25 21:38 Ondansetron Inj 2 Mg/Ml Inj 2 Ml IVP 08/26/25 21:37 Q6H PRN NAUSEA OR VOMITING Protocol Pantoprazole Sodium 40 mg 07/28/25 09:00 07/29/25 09:16 Pantoprazole Inj 40 Mg Vial IVP 08/27/25 08:59 40 mg BID FÉLIX Administration Plan 59-year-old female with past medical history of DM2, hypertension, and breast cancer s/p mastectomy currently on chemotherapy placed on observation due to right lower lobe PE and currently HEPARIN on hold for suspected acute blood loss anemia Pulmonary embolism, right lower lobe Hx of breast cancer s/p mastectomy She had incidental pulmonary embolism right lower lobe seen on CT which was ordered outpatient by her oncologist. Otherwise she is asymptomatic without shortness of breath or chest pain. ED has started on HEPARIN drip and will be admitted for continuous HEPARIN drip and overnight monitoring with the plan to transition to DOAC or NOAC. Venous Doppler with no evidence of LE DVT bilaterally. However, HEPARIN was held given drastic drop in her hemoglobin which we are currently working up. Otherwise she is satting well without evidence of pulmonary distress or chest pain. ? Continue holding HEPARIN ? Continue oxygen. Suspected GI blood loss anemia Pancytopenia Admission Hgb 9.0, HCT 27, PLT 166 WBC 4.5. Likely she has chemo induced marrow suppression. However this a.m. CBC showed Hgb 7.7, PLT 132, WBC 1.5 with absolute neutrophil 0.7 meeting criteria for moderate neutropenia. Repeat hemoglobin was 8.3 and she has not required transfusions for now. HEPARIN drip has been held given high suspicion for GI bleed, no other obvious source at this point. We are currently pending FOBT and further recommendations from GI. She denies recent GI bleeding or dark stool. However, however she did have an episode of bright red blood per rectum. GI on board, currently on GOLYTELY with plan for colonoscopy once clear. She has adequate pulmonary response based on elevated reticulocyte count. LDH elevated 478, suggestive of hemolysis but likely tumor lysis syndrome, and DIC unlikely at this point. Will proceed with GI recommendation. ? Follow-up reticulocytes, LDH, iron panel, smear ? Continue NPO ? Continue PROTONIX BID ? Pending FOBT ? Pending further recommendations from GI ? Transfuse if hemoglobin less than 7 ? ANTIEMETICS PRN ? Continue NS at 100 cc/HR Moderate neutropenia Nausea and vomiting UTI She has diffuse abdominal pain and UA suggested UTI. She also had nausea several hours diarrhea previously she which appeared to have resolved today. Given history of cancer and moderate neutropenia we'll initiate ZOSYN for now. Otherwise she remains afebrile and aseptic. Will follow-up with urine and blood culture. CT abdomen showed no evidence of acute abdominal pathology. May need EPO or NEUTROGEN. ? Continue ZOSYN (07/28 to present) ? Follow-up blood and urine culture ? ANTIEMETICS PRN ? Continue NS at 100 cc/HR T2DM A1c 7.6. GLUCOSE within acceptable range. ? INSULIN sliding scale ? Accu-Cheks Hx hypertension Currently normotensive ? Continue monitoring ? Initiate antihypertensives as indicated Health maintenance Diet: NPO GI prophylaxis: PROTONIX DVT prophylaxis: Contraindicated Antibiotics: ZOSYN CODE STATUS: Full code Disposition: Will resume pulmonary embolism treatment once acute PE ruled out Case was discussed with attending physician. Deepika Mendiola DO PGY II This document was transcribed using voice recognition technology. Minor inaccuracies may be present.
--- NOTE | 2025-07-29 15:33 | SUR.PHASEI ---
1533: Pt. wakes to name then drifts back to sleep, vitals stable, breathing unlabored, no complaint of pain or nausea, no dressing in place, no active bleed noted, report received from Keyona COLE.
--- NOTE | 2025-07-29 15:44 | PC.SS ---
SS attempted to meet with pt to complete initial assessment, pt was resting. SS attempted to contact pt Lazaro Llamas [phone], no answer. No VM available.
--- NOTE | 2025-07-29 15:45 | PC.SS ---
Rounding: Pending colonoscopy
--- NOTE | 2025-07-29 16:05 | SUR.PHASEI ---
1605: Pt. AAOx4, vitals stable, breathing unlabored, no complaint of pain or nausea, no dressing in place, no active bleed noted, report given to Donna RN prior to transfer to room 371. Pt. transferred with all her belongings. Family made aware of transfer to room.
--- NOTE | 2025-07-29 16:55 | PC.NURSE ---
Dr Chadwick stated to restated heprin drip after the coloscnocncy. informed Dr Yuan that Heprin drip was placed on hold this morning. Dr yuan resumed it however pharmacy wanted another Ptt lab draw stat because last one was [address] Yuan was informed and ordered stat ptt. will start pt back on heprin drip once the results come by and doctors and pharmacy are informed.
[2025-07-29 18:03] LABS: Hematocrit 24.8 % (36.0-46.0)
[2025-07-29 18:05] LABS: Hemoglobin 8.5 g/dL (12.0-16.0)
--- NOTE | 2025-07-29 18:17 | PC.NURSE ---
Call lab to check why there was delay in the stat ptt ordered at 1656. Lab will update me or night nurse once its drawn and results are in. Waiting for ptt result to start heparin drip because last ptt was drawn more than 6 hours ago and pharmacy need new results to start heparin drip
[2025-07-29 20:15] LABS: Partial Thromboplastin Time 27.6 Seconds (22.0-36.0)
--- NOTE | 2025-07-29 21:37 | PC.NURSE ---
Called pharmacy regarding the Heparin dose.
--- NOTE | 2025-07-29 22:09 | PC.NURSE ---
Notify regarding pt's Heparin drip.
[2025-07-29] MEDS: Heparin/D5w 25K 250 ML Ivpb 25,000 UNIT/250 ML BAG 13.092 UNIT IV (22:24)
[2025-07-29] MEDS: HEPARIN SOD INJ 5000 UNIT/ML VIAL IVP (22:39)
[2025-07-30] VITALS (14 sets, daily range): BP systolic 119–155; BP diastolic 60–78; PULSE 83–94; RESP 16–97; TEMP 36.6–37.3; O2SAT 94–95
[2025-07-30] MEDS: PIPER/TAZO 3.375 GM PREMIX 3.375 GM/50 ML BAG IV ×3 (05:27→21:06)
[2025-07-30 05:38] LABS: Basophils # (Auto) 0.0 Thou/mm3 (0.0-0.2); Basophils % (Auto) 1 % (0-2.5); Eosinophils # (Auto) 0.0 Thou/mm3 (0.0-0.5); Eosinophils % (Auto) 3 % (0-10); Immature Granulocytes Auto 0.01 Thou/mm3 (0.00-0.00); Lymphocytes # (Auto) 0.6 Thou/mm3 (1.0-4.8); Lymphocytes % (Auto) 67 % (10-50); Mean Corpuscular HGB Conc 33.8 g/dl (31.0-37.0); Mean Corpuscular Hemoglobin 29.4 pg (25.0-35.0); Mean Corpuscular Volume 87 fL (80-100); Monocytes # (Auto) 0.1 Thou/mm3 (0.0-0.8); Monocytes % (Auto) 14 % (0-12); Neutrophils # (Auto) 0.1 Thou/mm3 (1.8-7.7); Neutrophils % (Auto) 14 % (37-80); Nucleated Red Blood Cell # 0.00 Thou/mm3 (0.00-0.00); Nucleated Red Blood Cell % 0 /100 WBC (0); Platelet Count 111 Thou/mm3 (140-440); RDW Standard Deviation 43.3 fL (36.4-46.3); Red Blood Count 2.28 Miln/mm3 (4.00-5.20)
[2025-07-30 05:42] LABS: Hematocrit 19.8 % (36.0-46.0); Hemoglobin 6.7 g/dL (12.0-16.0); White Blood Count 0.9 Thou/mm3 (3.6-11.0)
[2025-07-30 06:27] LABS: Partial Thromboplastin Time 118.4 Seconds (22.0-36.0)
[2025-07-30 06:36] LABS: Alanine Aminotransferase < 7 U/L (10-49); Albumin, Serum 3.1 gm/dL (3.4-4.8); Albumin/Globulin Ratio 1.6 (1.2-2.2); Alkaline Phosphatase 100 U/L (46-116); Anion Gap 11 (7-16); Aspartate Amino Transferase 12 U/L (0-34); BUN/Creatinine Ratio 10 Ratio (12-20); Bilirubin,Total 0.4 mg/dL (0.3-1.2); Blood Urea Nitrogen 6 mg/dL (9-23); Calcium 7.4 mg/dL (8.3-10.6); Calcium (Corrected) 8.1 mg/dL (8.5-10.1); Carbon Dioxide 26.1 mMol/L (20.0-31.0); Chloride 111 mMol/L (98-107); Creatinine (Component) 0.6 mg/dL (0.6-1.3); Estimated Creatinine Clearance 86.9 mL/min (>60); Globulin 2.0 gm/dL (2.3-3.5); Glucose 152 mg/dL (74-106); Osmolality,Calculated 294 (275-295); Potassium 2.9 mMol/L (3.4-5.1); Sodium 148 mMol/L (136-145); Total Protein 5.1 gm/dL (5.7-8.2); eGFR > 60 See Note
[2025-07-30] MEDS: CALCIUM CARBONATE 600 MG TABLET PO (08:50)
[2025-07-30] MEDS: POTASSIUM CHL 10 mEq IVPB 10 MEQ/100 ML BAG 80 MEQ IV ×2 (08:52→10:59)
--- NOTE | 2025-07-30 09:27 | ESPR_ITS ---
<Statement entered by Jameel Aguero MD - 08/03/25 07:59> I reviewed above note and agree with findings and plans. I have also personally examined the patient with medicine team and went over assessment and plan with medical team including biology intern and resident physician. <Statement entered by Deepika Mendiola MD - 07/30/25 10:57> In summary: 59-year-old female with a history of breast cancer on chemotherapy, Type 2 diabetes, and hypertension was admitted for an incidental right lower lobe PE, but anticoagulation with heparin is currently held due to acute blood loss anemia and bright red blood per rectum. She underwent GI workup with findings of internal hemorrhoids which were banded. She received one dose of FILGRASTIM given severe neuropenea. Hgb continues to decline with poor marrow response, likely she has chemo-induced myelosuppression. Occult blood test today was negative. Will transfuse 1 unit of pRBC. We may resume PE treatment with DOAC once hgb is stable. But at this point there is no sign of active bleed. I?ve reviewed the note and agree with this assessment and plan, with the exceptions outlined above. I personally went over the labs, imaging, home medications, and prior records, and examined the patient. The case was also reviewed with the attending physician. Please note: this document was transcribed using voice recognition technology; minor inaccuracies may be present. Deepika Mendiola DO PGY II Documentation for date of: 07/30/25 Subjective Subjective Interval history: Patient seen and examined this morning. No acute overnight events. She reports overall feeling better today. She denies lightheadedness, dizziness, chest pain, shortness of breath, cough, or fevers. She denies melena or hematochezia. Bowel movement was personally observed by provider and appeared brown with no black or red discoloration. She endorses feeling cold at times but denies chills or rigors. She states poor oral intake related to hospital food, told patient that family may bring fully cooked food, which she was agreeable to. She reports improved energy compared to yesterday. Exam Vital Signs Temp Pulse Resp BP Pulse Ox O2 Del Method O2 Flow Rate 97.8 F 83 18 142/73 H 95 Room Air 3 07/30/25 07:55 07/30/25 07:55 07/30/25 07:55 07/30/25 07:55 07/30/25 07:55 07/30/25 07:55 07/29/25 15:25 Narrative Exam Gen: A&O X 3, NAD HEENT: NCAT, EOMI, Pupils reactive SRIDEVI, not icteric. External ears normal. No rhinorrhea. Moist mucous membranes. Neck: Supple, full range of motion, no observable masses, No meningeal sign. Lungs: No Respiratory distress, clear bilateral. CV: RRR, no murmurs. Abdomen: Soft, nondistended, No rebound tenderness. MSK: No joint swelling, no redness, peripheral pulses presents, no peripheral edema. Skin: No rashes, petechiae, lesions. Neuro: No focal neurological deficits appreciated, sensory and motor intact. Psych: Cooperative, appropriate mood and effect. Objective Labs 07/30/25 05:00 07/30/25 05:00 Labs: Laboratory Results - last 24 hr 07/28/25 07/29/25 07/29/25 08:21 17:11 19:39 WBC RBC Hgb 8.5 L Hct 24.8 L MCV MCH MCHC RDW Std Deviation Plt Count Neut % (Auto) Lymph % (Auto) [place] % (Auto) Eos % (Auto) Baso % (Auto) Neut # (Auto) Lymph # (Auto) [place] # (Auto) Eos # (Auto) Baso # (Auto) Immature Gran # (Auto) Absolute Nucleated RBC Immature Gran % Nucleated RBC % APTT 27.6 D Sodium Potassium Chloride Carbon Dioxide Anion Gap BUN Creatinine Estim Creat Clear Calc eGFR BUN/Creatinine Ratio Glucose Calculated Osmolality Calcium Corrected Calcium Total Bilirubin AST ALT Alkaline Phosphatase Total Protein Albumin Globulin Albumin/Globulin Ratio Blood Type A Positive Antibody Screen NEGATIVE Crossmatch See Detail Blood Bank Wristband ID Yes 07/30/25 05:00 WBC 0.9 L* RBC 2.28 L Hgb 6.7 L* D Hct 19.8 L* MCV 87 MCH 29.4 MCHC 33.8 RDW Std Deviation 43.3 Plt Count 111 L Neut % (Auto) 14 L Lymph % (Auto) 67 H [place] % (Auto) 14 H Eos % (Auto) 3 Baso % (Auto) 1 Neut # (Auto) 0.1 L Lymph # (Auto) 0.6 L [place] # (Auto) 0.1 Eos # (Auto) 0.0 Baso # (Auto) 0.0 Immature Gran # (Auto) 0.01 H Absolute Nucleated RBC 0.00 Immature Gran % 1 H Nucleated RBC % 0 APTT 118.4 H* D Sodium 148 H Potassium 2.9 L D Chloride 111 H Carbon Dioxide 26.1 Anion Gap 11 BUN 6 L Creatinine 0.6 Estim Creat Clear Calc 86.9 eGFR > 60 BUN/Creatinine Ratio 10 L Glucose 152 H Calculated Osmolality 294 Calcium 7.4 L Corrected Calcium 8.1 L Total Bilirubin 0.4 AST 12 ALT < 7 L Alkaline Phosphatase 100 D Total Protein 5.1 L Albumin 3.1 L D Globulin 2.0 L Albumin/Globulin Ratio 1.6 Blood Type Antibody Screen Crossmatch Blood Bank Wristband ID Quality Measures Quality Measures VTE therapy Assessment & Plan Assessment Current Active Medications: Generic Name Dose Route Start Last Admin Trade Name Freq PRN Reason Stop Dose Admin Acetaminophen 650 mg 07/27/25 21:38 Acetaminophen 325 Mg Tablet PO 08/26/25 21:37 Q6H PRN Fever >100.4 and mild pain Protocol Hydrocodone Bitart/Acetaminophen 1 tab 07/27/25 21:38 Hydrocodone/Apap 5/325 Tablet PO 08/01/25 21:37 Q4HR PRN PAIN SCALE 4-6 (Moderate Buspirone HCl 10 mg 07/28/25 08:15 07/30/25 08:50 Buspirone Hcl 5 Mg Tablet PO 08/27/25 08:14 10 mg BID FÉLIX Administration Calcium Carbonate 600 mg 07/30/25 09:00 07/30/25 08:50 Calcium Carbonate 600 Mg Tablet PO 08/29/25 08:59 600 mg QDAY FÉLIX Administration Dextrose 25 ml 07/27/25 21:38 Dextrose 50%-Water Inj 50 Ml Syringe IV 08/26/25 21:37 Q15MIN PRN BG 50-70 responsive npo pt Dextrose 50 ml 07/27/25 21:38 Dextrose 50%-Water Inj 50 Ml Syringe IV 08/26/25 21:37 Q15MIN PRN BG <50 OR BG <70 & pt unresponsive Glucagon 1 mg 07/27/25 21:38 Glucagon Inj 1 Mg Vial IM Q15MIN PRN BG <70, and no IV access Heparin Sodium/Dextrose 25,000 unit in 250 mls @ 11.783 mls/hr 07/27/25 16:30 07/30/25 05:53 Heparin In D5w Ivpb IV 08/10/25 16:29 0 units/kg/hr On Hold: 07/30/25 05:53 .[id number] FÉLIX 0 mls/hr Protocol Titration 18 UNITS/KG/HR Piperacillin/Tazobactam/Dextrose 3.375 gm in 50 mls @ 12.5 mls/hr 07/28/25 22:00 07/30/25 05:27 Zosyn IV 08/04/25 21:59 12.5 mls/hr Q8HR FÉLIX Administration Protocol Sodium Chloride 1,000 mls @ 100 mls/hr 07/28/25 14:45 07/29/25 22:48 Ns IV 08/27/25 14:44 100 mls/hr .Q10H FÉLIX Administration Potassium Chloride 10 meq in 100 mls @ 80 mls/hr 07/30/25 08:30 07/30/25 08:52 Kcl Ivpb IV 07/30/25 10:29 80 mls/hr Q1H FÉLIX Administration Insulin Human Lispro 0 unit 07/28/25 07:30 07/30/25 07:36 Insulin Lispro (Admelog) 1 Unit/0.01 Ml Unit SC 08/27/25 07:29 Not Given AC FÉLIX Protocol Ondansetron HCl 4 mg 07/27/25 21:38 Ondansetron Inj 2 Mg/Ml Inj 2 Ml IVP 08/26/25 21:37 Q6H PRN NAUSEA OR VOMITING Protocol Pantoprazole Sodium 40 mg 07/28/25 09:00 07/30/25 08:52 Pantoprazole Inj 40 Mg Vial IVP 08/27/25 08:59 40 mg BID FÉLIX Administration Plan 59-year-old female with breast cancer on chemotherapy admitted for incidental right lower lobe pulmonary embolism, course complicated by acute GI blood loss anemia, severe chemo-induced pancytopenia with profound neutropenia, currently receiving PRBC transfusion with anticoagulation on hold. # Acute Blood Loss Anemia # Chemotherapy-Induced Hypoproliferative Anemia # Profound Neutropenia # Pancytopenia likely Chemo-Induced # Infection Risk / UTI Severe anemia due to chemotherapy-related marrow suppression. Unlikely GI bleed as it was ruled out with EGD and colonoscopy but still possibilty of small intestine bleed though unlikely. Severe neutropenia (WBC 0.9) with hypoproliferative marrow in setting of recent chemotherapy. High infection risk in neutropenic patient. Plan: - Transfusing 1 unit irradiated PRBC now - Maintain hemoglobin >7 - Trend H/H closely - Initiate filgrastim (G-CSF) - Continue Zosyn (07/28- ) - Continue Protonix BID - Colonoscopy (07/29): internal hemorrhoids -> continue Anusol suppository nightly x5 days - Low fiber diet per GI - No evidence of ongoing bleeding at this time - Neutropenic precautions - Daily CBC - Coordinate with oncology - GI following # Pulmonary embolism, right lower lobe # Hx of breast cancer s/p mastectomy She had incidental pulmonary embolism right lower lobe seen on CT which was ordered outpatient by her oncologist. Otherwise she is asymptomatic without shortness of breath or chest pain. ED has started on HEPARIN drip and will be admitted for continuous HEPARIN drip and overnight monitoring with the plan to transition to DOAC or NOAC. Venous Doppler with no evidence of LE DVT bilaterally. However, HEPARIN was held given drastic drop in her hemoglobin which we are currently working up. Otherwise she is satting well without evidence of pulmonary distress or chest pain. Asymptomatic pulmonary embolism with anticoagulation currently contraindicated due to active anemia. ? Continue holding HEPARIN ? Continue oxygen. # Hypokalemia Likely secondary to poor intake and GI losses. Plan: -Potassium repletion -Repeat BMP in AM #Nausea and vomiting #UTI She has diffuse abdominal pain and UA suggested UTI. She also had nausea several hours diarrhea previously she which appeared to have resolved today. Given history of cancer and moderate neutropenia we'll initiate ZOSYN for now. Otherwise she remains afebrile and aseptic. Will follow-up with urine and blood culture. CT abdomen showed no evidence of acute abdominal pathology. May need EPO or NEUTROGEN. ? Continue ZOSYN (07/28 to present) ? Follow-up blood and urine culture ? ANTIEMETICS PRN ? Continue NS at 100 cc/HR #T2DM A1c 7.6. GLUCOSE within acceptable range. ? INSULIN sliding scale ? Accu-Cheks #Hx hypertension Currently normotensive ? Continue monitoring ? Initiate antihypertensives as indicated Health maintenance Diet: Low fiber GI prophylaxis: PROTONIX DVT prophylaxis: Contraindicated Antibiotics: ZOSYN CODE STATUS: Full code Disposition: Will resume pulmonary embolism treatment once acute PE ruled out ----- Plan discussed with attending physician Dr. Aguero and senior resident Dr. Marlena Burris MD PGY-1 Internal Medicine
[2025-07-30] MEDS: FILGRASTIM INJ (ZARXIO) 300 MCG/0.5 ML SYRINGE SC (11:00)
--- NOTE | 2025-07-30 11:14 | PC.SS ---
59YO Female, Reason for visit: ANEMIA. SS met with patient at bedside to complete initial assessment. Role and purpose of today?s contact explained. Patient confirmed her demographic information.?Patient reported she and her spouse temporarily reside with her daughter. Patient stated her primary medical surrogate decisionmaker is his Spouse Lazaro Llamas [phone]. Patient reported she is independent with ADL completion and independent with ambulation as well. However, she reported her daughter assists her with ADLs as needed. PCP: Uzair Diaz, last appt. was 06/2025. ONCOLOGIST: Dr. Kahn. Discharge plan discussed with patient, she is requesting to return home at the time of discharge. Patient?s family to provide transportation. DISCHARGE PLAN: HOME NEXT OF KIN: Spouse Lazaro Llamas [phone]
[2025-07-30 11:30] LABS: Hematocrit 25.1 % (36.0-46.0)
[2025-07-30 12:19] LABS: Hemoglobin 8.7 g/dL (12.0-16.0)
[2025-07-30] MEDS: APIXABAN 2.5 MG TABLET 10 MG PO ×2 (14:12→21:05)
--- NOTE | 2025-07-30 16:27 | PD.IMPROG ---
Documentation for date of: 07/30/25 Subjective Subjective Interval history: Patient did drop the hemoglobin hematocrit requiring blood transfusion Patient did have some bleeding from the recently banded internal hemorrhoids as the anal verge is not inflamed but most of this anemia is chemotherapy induced Exam Vital Signs Temp Pulse Resp BP Pulse Ox O2 Del Method O2 Flow Rate 98.8 F 83 17 147/68 H 94 L Room Air 3 07/30/25 12:00 07/30/25 12:00 07/30/25 12:00 07/30/25 12:00 07/30/25 12:00 07/30/25 12:00 07/29/25 15:25 Objective Labs 07/30/25 11:00 07/30/25 05:00 Labs: Laboratory Results - last 24 hr 07/28/25 07/29/25 07/29/25 08:21 17:11 19:39 WBC RBC Hgb 8.5 L Hct 24.8 L MCV MCH MCHC RDW Std Deviation Plt Count Neut % (Auto) Lymph % (Auto) [place] % (Auto) Eos % (Auto) Baso % (Auto) Neut # (Auto) Lymph # (Auto) [place] # (Auto) Eos # (Auto) Baso # (Auto) Immature Gran # (Auto) Absolute Nucleated RBC Immature Gran % Nucleated RBC % APTT 27.6 D Sodium Potassium Chloride Carbon Dioxide Anion Gap BUN Creatinine Estim Creat Clear Calc eGFR BUN/Creatinine Ratio Glucose Calculated Osmolality Calcium Corrected Calcium Total Bilirubin AST ALT Alkaline Phosphatase Total Protein Albumin Globulin Albumin/Globulin Ratio Blood Type A Positive Antibody Screen NEGATIVE Crossmatch See Detail Blood Bank Wristband ID Yes 07/30/25 07/30/25 05:00 11:00 WBC 0.9 L* RBC 2.28 L Hgb 6.7 L* D 8.7 L D Hct 19.8 L* 25.1 L MCV 87 MCH 29.4 MCHC 33.8 RDW Std Deviation 43.3 Plt Count 111 L Neut % (Auto) 14 L Lymph % (Auto) 67 H [place] % (Auto) 14 H Eos % (Auto) 3 Baso % (Auto) 1 Neut # (Auto) 0.1 L Lymph # (Auto) 0.6 L [place] # (Auto) 0.1 Eos # (Auto) 0.0 Baso # (Auto) 0.0 Immature Gran # (Auto) 0.01 H Absolute Nucleated RBC 0.00 Immature Gran % 1 H Nucleated RBC % 0 APTT 118.4 H* D Sodium 148 H Potassium 2.9 L D Chloride 111 H Carbon Dioxide 26.1 Anion Gap 11 BUN 6 L Creatinine 0.6 Estim Creat Clear Calc 86.9 eGFR > 60 BUN/Creatinine Ratio 10 L Glucose 152 H Calculated Osmolality 294 Calcium 7.4 L Corrected Calcium 8.1 L Total Bilirubin 0.4 AST 12 ALT < 7 L Alkaline Phosphatase 100 D Total Protein 5.1 L Albumin 3.1 L D Globulin 2.0 L Albumin/Globulin Ratio 1.6 Blood Type Antibody Screen Crossmatch Blood Bank Wristband ID Impressions Impression: Anemia multifactorial PE Patient can be fully anticoagulated Case discussed with the internal medicine resident Assessment & Plan A&P Narrative # Anemia of blood loss # Pulmonary embolism # Diabetes mellitus type 2 # Essential hypertension # Anxiety neurosis Plan N.p.o. Consent obtained for fiberoptic esophagogastroduodenoscopy therapeutic intervention under intravenous moderate sedation if EGD is negative start the patient on heparin will prepare with clear liquid diet and GoLytely for a colonoscopy tomorrow Thank you very much for the opportunity to participate in care of this patient Time Spent With Patient Time: Total time spent is greater than 50% in coordination of care (as documented) at patient's floor/unit and/or counseling patient:
[2025-07-30] MEDS: SODIUM CHLORIDE 0.9% 1000 ML 1,000 ML 100 ML IV (21:04)
[2025-07-30] MEDS: HYDROCORTISONE ACET 25 MG SUPP 50 MG PR (21:05)
[2025-07-30] MEDS: MELATONIN 3 MG TABLET 6 MG PO (22:58)
[2025-07-31] VITALS (7 sets, daily range): BP systolic 108–156; BP diastolic 57–92; PULSE 72–102; RESP 17–96; TEMP 36.3–36.9; O2SAT 94–98
[2025-07-31] MEDS: PIPER/TAZO 3.375 GM PREMIX 3.375 GM/50 ML BAG IV ×3 (05:06→21:02)
[2025-07-31] MEDS: SODIUM CHLORIDE 0.9% 1000 ML 1,000 ML 100 ML IV ×2 (08:07→18:21)
[2025-07-31] MEDS: CALCIUM CARBONATE 600 MG TABLET PO (08:08)
[2025-07-31] MEDS: APIXABAN 2.5 MG TABLET 10 MG PO ×2 (08:09→20:55)
[2025-07-31] MEDS: ONDANSETRON INJ 2 MG/ML INJ 2 ML 4 MG IVP (08:09)
--- NOTE | 2025-07-31 09:32 | ESPR_ITS ---
<Statement entered by Jameel Aguero MD - 08/03/25 08:01> I reviewed above note and agree with findings and plans. I have also personally examined the patient with medicine team and went over assessment and plan with medical team including electrical engineering intern and resident physician. Documentation for date of: 07/31/25 Subjective Subjective Interval history: Patient seen and examined this morning. She reports that she has not been eating much, primarily due to lack of appetite. Denies nausea, vomiting, abdominal pain, chest pain, shortness of breath, dizziness, fevers, or chills. No further episodes of hematochezia or melena. Family updated at bedside and instructed to bring patient any preferred fully cooked foods, which patient is agreeable to. Given persistent poor appetite and underlying depression, buspirone was held and mirtazapine initiated for mood support and appetite stimulation. Due to stable hemoglobin and no evidence of ongoing bleeding, anticoagulation was restarted with Eliquis 10 mg twice daily Plan to keep patient inpatient one more day with possible discharge tomorrow pending continued stability. Patient reports feeling better overall. Exam Vital Signs Temp Pulse Resp BP Pulse Ox O2 Del Method O2 Flow Rate 98.0 F 81 18 134/77 H 96 Room Air 3 07/31/25 08:00 07/31/25 08:00 07/31/25 08:00 07/31/25 08:00 07/31/25 08:00 07/31/25 04:00 07/29/25 15:25 Narrative Exam Gen: A&O X 3, NAD HEENT: NCAT, EOMI, Pupils reactive SRIDEVI, not icteric. External ears normal. No rhinorrhea. Moist mucous membranes. Neck: Supple, full range of motion, no observable masses, No meningeal sign. Lungs: No Respiratory distress, clear bilateral. CV: RRR, no murmurs. Abdomen: Soft, nondistended, No rebound tenderness. MSK: No joint swelling, no redness, peripheral pulses presents, no peripheral edema. Skin: No rashes, petechiae, lesions. Neuro: No focal neurological deficits appreciated, sensory and motor intact. Psych: Cooperative, appropriate mood and effect. Objective Labs 07/31/25 09:06 07/31/25 09:06 Labs: Laboratory Results - last 24 hr 07/28/25 07/30/25 08:21 11:00 Hgb 8.7 L D Hct 25.1 L Crossmatch See Detail Quality Measures Quality Measures VTE therapy Assessment & Plan Assessment Current Active Medications: Generic Name Dose Route Start Last Admin Trade Name Freq PRN Reason Stop Dose Admin Acetaminophen 650 mg 07/27/25 21:38 Acetaminophen 325 Mg Tablet PO 08/26/25 21:37 Q6H PRN Fever >100.4 and mild pain Protocol Hydrocodone Bitart/Acetaminophen 1 tab 07/27/25 21:38 Hydrocodone/Apap 5/325 Tablet PO 08/01/25 21:37 Q4HR PRN PAIN SCALE 4-6 (Moderate Apixaban 10 mg 07/30/25 13:45 07/31/25 08:09 Apixaban 2.5 Mg Tablet PO 08/05/25 21:01 10 mg BID FÉLIX Administration Buspirone HCl 10 mg 07/28/25 08:15 07/31/25 08:08 Buspirone Hcl 5 Mg Tablet PO 08/27/25 08:14 10 mg BID FÉLIX Administration Calcium Carbonate 600 mg 07/30/25 09:00 07/31/25 08:08 Calcium Carbonate 600 Mg Tablet PO 08/29/25 08:59 600 mg QDAY FÉLIX Administration Dextrose 25 ml 07/27/25 21:38 Dextrose 50%-Water Inj 50 Ml Syringe IV 08/26/25 21:37 Q15MIN PRN BG 50-70 responsive npo pt Dextrose 50 ml 07/27/25 21:38 Dextrose 50%-Water Inj 50 Ml Syringe IV 08/26/25 21:37 Q15MIN PRN BG <50 OR BG <70 & pt unresponsive Glucagon 1 mg 07/27/25 21:38 Glucagon Inj 1 Mg Vial IM Q15MIN PRN BG <70, and no IV access Hydrocortisone Acetate 50 mg 07/30/25 21:00 07/30/25 21:05 Hydrocortisone Acet 25 Mg Supp [place] 08/03/25 21:01 50 mg HS FÉLIX Administration Heparin Sodium/Dextrose 25,000 unit in 250 mls @ 11.783 mls/hr 07/27/25 16:30 07/30/25 05:53 Heparin In D5w Ivpb IV 08/10/25 16:29 0 units/kg/hr On Hold: 07/30/25 05:53 .[id number] FÉLIX 0 mls/hr Protocol Titration 18 UNITS/KG/HR Piperacillin/Tazobactam/Dextrose 3.375 gm in 50 mls @ 12.5 mls/hr 07/28/25 22:00 07/31/25 05:06 Zosyn IV 08/04/25 21:59 12.5 mls/hr Q8HR FÉLIX Administration Protocol Sodium Chloride 1,000 mls @ 100 mls/hr 07/28/25 14:45 07/31/25 08:07 Ns IV 08/27/25 14:44 100 mls/hr .Q10H FÉLIX Administration Insulin Human Lispro 0 unit 07/28/25 07:30 07/31/25 07:39 Insulin Lispro (Admelog) 1 Unit/0.01 Ml Unit SC 08/27/25 07:29 Not Given AC FÉLIX Protocol Ondansetron HCl 4 mg 07/27/25 21:38 07/31/25 08:09 Ondansetron Inj 2 Mg/Ml Inj 2 Ml IVP 08/26/25 21:37 4 mg Q6H PRN Administration NAUSEA OR VOMITING Protocol Pantoprazole Sodium 40 mg 07/28/25 09:00 07/31/25 08:09 Pantoprazole Inj 40 Mg Vial IVP 08/27/25 08:59 40 mg BID FÉLIX Administration Plan 59-year-old female with breast cancer on chemotherapy admitted for incidental right lower lobe pulmonary embolism, hospital course complicated by acute GI blood loss anemia and chemotherapy-induced pancytopenia, now with improving ANC, stable hemoglobin, improved electrolytes, restarted anticoagulation, and poor oral intake. # Acute Blood Loss Anemia # Chemotherapy-Induced Hypoproliferative Anemia # Profound Neutropenia # Pancytopenia likely Chemo-Induced # Infection Risk / UTI Severe anemia due to chemotherapy-related marrow suppression. Unlikely GI bleed as it was ruled out with EGD and colonoscopy but still possibilty of small intestine bleed though unlikely. Severe neutropenia (WBC 0.9) with hypoproliferative marrow in setting of recent chemotherapy. High infection risk in neutropenic patient. Anemia due to prior GI bleeding with chemotherapy-related marrow suppression, now stable post-transfusion. Plan: - Maintain hemoglobin >7 - Continue Zosyn (07/28- ) - Continue Protonix BID - Colonoscopy (07/29): internal hemorrhoids -> continue Anusol suppository nightly x5 days - Low fiber diet per GI - No evidence of ongoing bleeding at this time - Neutropenic precautions - Daily CBC - Coordinate with oncology - GI following # Pulmonary embolism, right lower lobe # Hx of breast cancer s/p mastectomy She had incidental pulmonary embolism right lower lobe seen on CT which was ordered outpatient by her oncologist. Otherwise she is asymptomatic without shortness of breath or chest pain. ED has started on HEPARIN drip and will be admitted for continuous HEPARIN drip and overnight monitoring with the plan to transition to DOAC or NOAC. Venous Doppler with no evidence of LE DVT bilaterally. However, HEPARIN was held given drastic drop in her hemoglobin which we are currently working up. Otherwise she is satting well without evidence of pulmonary distress or chest pain. Asymptomatic pulmonary embolism with anticoagulation currently contraindicated due to active anemia. 07/31: Due to stable hemoglobin and no evidence of ongoing bleeding, anticoagulation was restarted with Eliquis 10 mg twice daily Plan: ? Started on Eliquis 10 mg PO BID x7 days, then 5 mg PO BID ? Continue oxygen. # Poor Oral Intake # Depression Decreased appetite in the setting of hospitalization and depression. Plan: * Hold buspirone * Start mirtazapine for depression and appetite stimulation * Encourage PO intake * Family to bring preferred foods # Hypokalemia, improved Likely secondary to poor intake and GI losses. Plan: -Potassium repletion -Repeat BMP in AM #Nausea and vomiting #UTI She has diffuse abdominal pain and UA suggested UTI. She also had nausea several hours diarrhea previously she which appeared to have resolved today. Given history of cancer and moderate neutropenia we'll initiate ZOSYN for now. Otherwise she remains afebrile and aseptic. Will follow-up with urine and blood culture. CT abdomen showed no evidence of acute abdominal pathology. May need EPO or NEUTROGEN. ? Continue ZOSYN (07/28 to present) ? Follow-up blood and urine culture ? ANTIEMETICS PRN ? Continue NS at 100 cc/HR #T2DM A1c 7.6. GLUCOSE within acceptable range. ? INSULIN sliding scale ? Accu-Cheks #Hx hypertension Currently normotensive ? Continue monitoring ? Initiate antihypertensives as indicated Health maintenance Diet: Low fiber GI prophylaxis: PROTONIX DVT prophylaxis: on Eliquis Antibiotics: ZOSYN CODE STATUS: Full code Disposition: Possible DC tomorrow ----- Plan discussed with attending physician Dr. More Burris MD PGY-1 Internal Medicine
[2025-07-31 09:44] LABS: Basophils # (Auto) 0.1 Thou/mm3 (0.0-0.2); Basophils % (Auto) 2 % (0-2.5); Eosinophils # (Auto) 0.0 Thou/mm3 (0.0-0.5); Eosinophils % (Auto) 1 % (0-10); Hematocrit 25.9 % (36.0-46.0); Hemoglobin 8.9 g/dL (12.0-16.0); Immature Granulocytes Auto 0.31 Thou/mm3 (0.00-0.00); Lymphocytes # (Auto) 0.9 Thou/mm3 (1.0-4.8); Lymphocytes % (Auto) 29 % (10-50); Mean Corpuscular HGB Conc 34.4 g/dl (31.0-37.0); Mean Corpuscular Hemoglobin 29.1 pg (25.0-35.0); Mean Corpuscular Volume 85 fL (80-100); Monocytes # (Auto) 0.5 Thou/mm3 (0.0-0.8); Monocytes % (Auto) 17 % (0-12); Neutrophils # (Auto) 1.2 Thou/mm3 (1.8-7.7); Neutrophils % (Auto) 40 % (37-80); Nucleated Red Blood Cell # 0.02 Thou/mm3 (0.00-0.00); Nucleated Red Blood Cell % 1 /100 WBC (0); Platelet Count 112 Thou/mm3 (140-440); RDW Standard Deviation 45.9 fL (36.4-46.3); Red Blood Count 3.06 Miln/mm3 (4.00-5.20); White Blood Count 2.9 Thou/mm3 (3.6-11.0)
[2025-07-31 10:19] LABS: Alanine Aminotransferase 7 U/L (10-49); Albumin, Serum 3.5 gm/dL (3.4-4.8); Albumin/Globulin Ratio 1.5 (1.2-2.2); Alkaline Phosphatase 103 U/L (46-116); Anion Gap 12 (7-16); Aspartate Amino Transferase 14 U/L (0-34); BUN/Creatinine Ratio 10 Ratio (12-20); Bilirubin,Total 0.7 mg/dL (0.3-1.2); Blood Urea Nitrogen < 5 mg/dL (9-23); Calcium 8.1 mg/dL (8.3-10.6); Calcium (Corrected) 8.5 mg/dL (8.5-10.1); Carbon Dioxide 25.0 mMol/L (20.0-31.0); Chloride 110 mMol/L (98-107); Creatinine (Component) 0.5 mg/dL (0.6-1.3); Estimated Creatinine Clearance 104.3 mL/min (>60); Globulin 2.3 gm/dL (2.3-3.5); Glucose 160 mg/dL (74-106); Osmolality,Calculated 292 (275-295); Potassium 3.4 mMol/L (3.4-5.1); Sodium 147 mMol/L (136-145); Total Protein 5.8 gm/dL (5.7-8.2); eGFR > 60 See Note
[2025-07-31] MEDS: MIRTAZAPINE 15 MG TABLET 30 MG PO (12:02)
[2025-07-31] MEDS: INSULIN LISPRO (AdmeLOG) 1 UNIT/0.01 ML UNIT SC (12:18)
--- NOTE | 2025-07-31 12:30 | ESPR_ITS ---
Documentation for date of: 07/31/25 Subjective Subjective Interval history: Hemoglobin hematocrit 8.9 and 25.9 relatively stable Exam Vital Signs Temp Pulse Resp BP Pulse Ox O2 Del Method O2 Flow Rate 98.0 F 81 18 134/77 H 96 Room Air 3 07/31/25 08:00 07/31/25 08:00 07/31/25 08:00 07/31/25 08:00 07/31/25 08:00 07/31/25 04:00 07/29/25 15:25 Objective Labs 07/31/25 09:06 07/31/25 09:06 Labs: Laboratory Results - last 24 hr 07/28/25 07/31/25 08:21 09:06 WBC 2.9 L D RBC 3.06 L Hgb 8.9 L Hct 25.9 L MCV 85 MCH 29.1 MCHC 34.4 RDW Std Deviation 45.9 Plt Count 112 L Neut % (Auto) 40 Lymph % (Auto) 29 [place] % (Auto) 17 H Eos % (Auto) 1 Baso % (Auto) 2 Neut # (Auto) 1.2 L Lymph # (Auto) 0.9 L [place] # (Auto) 0.5 Eos # (Auto) 0.0 Baso # (Auto) 0.1 Immature Gran # (Auto) 0.31 H Absolute Nucleated RBC 0.02 H Immature Gran % 11 H Nucleated RBC % 1 H Sodium 147 H Potassium 3.4 D Chloride 110 H Carbon Dioxide 25.0 Anion Gap 12 BUN < 5 L Creatinine 0.5 L Estim Creat Clear Calc 104.3 eGFR > 60 BUN/Creatinine Ratio 10 L Glucose 160 H Calculated Osmolality 292 Calcium 8.1 L Corrected Calcium 8.5 Total Bilirubin 0.7 AST 14 ALT 7 L Alkaline Phosphatase 103 Total Protein 5.8 Albumin 3.5 Globulin 2.3 Albumin/Globulin Ratio 1.5 Crossmatch See Detail Impressions Impression: Rectal bleeding secondary to internal hemorrhoids requiring band ligation Pulmonary embolism Patient can be fully anticoagulated Assessment & Plan A&P Narrative # Anemia of blood loss # Pulmonary embolism # Diabetes mellitus type 2 # Essential hypertension # Anxiety neurosis Plan N.p.o. Consent obtained for fiberoptic esophagogastroduodenoscopy therapeutic intervention under intravenous moderate sedation if EGD is negative start the patient on heparin will prepare with clear liquid diet and GoLytely for a colonoscopy tomorrow Thank you very much for the opportunity to participate in care of this patient Time Spent With Patient Time: Total time spent is greater than 50% in coordination of care (as documented) at patient's floor/unit and/or counseling patient:
--- NOTE | 2025-07-31 15:07 | PC.SS ---
Rounding: Pending labs, monitor one more day, DC tomorrow home
[2025-07-31] MEDS: HYDROCORTISONE ACET 25 MG SUPP 50 MG PR (20:55)
[2025-08-01] VITALS: BP 154/78; PULSE 90; PULSE 91; RESP 18; TEMP 37.2; O2SAT 96
--- NOTE | 2025-08-01 03:57 | PC.NURSE ---
MD Moreno made aware that pt has a diarrhea overnight, MD will check on pt chart.
[2025-08-01 04:00] VITALS: BP 160/77; PULSE 97; RESP 18; TEMP 37.1; O2SAT 96
[2025-08-01] MEDS: SODIUM CHLORIDE 0.9% 1000 ML 1,000 ML 100 ML IV (04:00)
[2025-08-01] MEDS: PIPER/TAZO 3.375 GM PREMIX 3.375 GM/50 ML BAG IV (05:18)
--- NOTE | 2025-08-01 05:49 | PC.NURSE ---
MD Marin made aware that pt is having diarrhea the whole night, pt is asking meds to stop her diarrhea, per MD will order Lactobacillus and let day team know if we need to check for C.Diff.
[2025-08-01] MEDS: LACTOBACILLUS RHAMNOSUS 1 CAP PO ×2 (05:56→09:30)
[2025-08-01 07:40] VITALS: PULSE 87; RESP 18; RESP 98
[2025-08-01 08:00] VITALS: BP 142/69; PULSE 88; RESP 18; TEMP 36.3; O2SAT 98
[2025-08-01 09:12] LABS: Basophils # (Auto) 0.0 Thou/mm3 (0.0-0.2); Basophils % (Auto) 0 % (0-2.5); Eosinophils # (Auto) 0.0 Thou/mm3 (0.0-0.5); Eosinophils % (Auto) 0 % (0-10); Hematocrit 25.8 % (36.0-46.0); Hemoglobin 8.9 g/dL (12.0-16.0); Immature Granulocytes Auto 0.64 Thou/mm3 (0.00-0.00); Lymphocytes # (Auto) 1.2 Thou/mm3 (1.0-4.8); Lymphocytes % (Auto) 17 % (10-50); Mean Corpuscular HGB Conc 34.5 g/dl (31.0-37.0); Mean Corpuscular Hemoglobin 29.4 pg (25.0-35.0); Mean Corpuscular Volume 85 fL (80-100); Monocytes # (Auto) 1.0 Thou/mm3 (0.0-0.8); Monocytes % (Auto) 14 % (0-12); Neutrophils # (Auto) 4.2 Thou/mm3 (1.8-7.7); Neutrophils % (Auto) 59 % (37-80); Nucleated Red Blood Cell # 0.10 Thou/mm3 (0.00-0.00); Nucleated Red Blood Cell % 1 /100 WBC (0); Platelet Count 134 Thou/mm3 (140-440); RDW Standard Deviation 46.6 fL (36.4-46.3); Red Blood Count 3.03 Miln/mm3 (4.00-5.20); White Blood Count 7.1 Thou/mm3 (3.6-11.0)
[2025-08-01] MEDS: CALCIUM CARBONATE 600 MG TABLET PO (09:30)
[2025-08-01] MEDS: APIXABAN 2.5 MG TABLET 10 MG PO (09:30)
[2025-08-01 09:31] LABS: Alanine Aminotransferase 7 U/L (10-49); Albumin, Serum 3.3 gm/dL (3.4-4.8); Albumin/Globulin Ratio 1.4 (1.2-2.2); Alkaline Phosphatase 100 U/L (46-116); Anion Gap 15 (7-16); Aspartate Amino Transferase 15 U/L (0-34); BUN/Creatinine Ratio 8 Ratio (12-20); Bilirubin,Total 0.4 mg/dL (0.3-1.2); Blood Urea Nitrogen < 5 mg/dL (9-23); Calcium 7.6 mg/dL (8.3-10.6); Calcium (Corrected) 8.2 mg/dL (8.5-10.1); Carbon Dioxide 25.5 mMol/L (20.0-31.0); Chloride 112 mMol/L (98-107); Creatinine (Component) 0.6 mg/dL (0.6-1.3); Estimated Creatinine Clearance 86.9 mL/min (>60); Globulin 2.3 gm/dL (2.3-3.5); Glucose 163 mg/dL (74-106); Magnesium 1.2 mg/dL (1.6-2.6); Osmolality,Calculated 302 (275-295); Potassium 3.0 mMol/L (3.4-5.1); Sodium 152 mMol/L (136-145); Total Protein 5.6 gm/dL (5.7-8.2); eGFR > 60 See Note
[2025-08-01] MEDS: MIRTAZAPINE 15 MG TABLET 30 MG PO (09:31)
--- NOTE | 2025-08-01 09:39 | ESDS_ITS ---
<Statement entered by Jameel Aguero MD - 08/03/25 08:03> I reviewed above note and agree with findings and plans. I have also personally examined the patient with medicine team and went over assessment and plan with medical team including international marketing manager and resident physician. Planned Discharge Date 08/01/25 DS: Providers Provider Date of admission: 07/29/25 08:48 Primary care physician: Uzair Diaz MD Admitting Provider: Kiera Byrnes DO Attending Provider on Admission: Jameel Aguero MD Consults: 07/28/25 07:37 Consult to Gastroenterology Routine Comment: Consulting Provider: Seema Chadwick Attending Provider on DC: Jameel Aguero MD Discharging Provider: Liliane Burris MD DS: Diagnosis Problem List Completed Was Problem List Reviewed/Reconciled?: Yes Hospital Course Hospital Course Hospital course: 59-year-old female with a history of left breast cancer status post mastectomy currently receiving chemotherapy, type 2 diabetes mellitus, and hypertension who was admitted after outpatient CT imaging ordered by her oncologist revealed an incidental right lower lobe pulmonary embolism. She was initially asymptomatic without chest pain or shortness of breath and was started on a heparin drip in the emergency department. Her hospital course was complicated by a significant drop in hemoglobin, concerning for acute gastrointestinal blood loss anemia in the setting of chemotherapy-induced bone marrow suppression. Anticoagulation was held, and she required blood transfusions with stabilization of hemoglobin thereafter. G astroenterology was consulted. EGD was negative, and colonoscopy revealed internal hemorrhoids, which were felt to be the source of bleeding. She was treated conservatively with proton pump inhibitor therapy, low fiber diet, and Anusol suppositories, with no further evidence of gastrointestinal bleeding. During admission, the patient developed profound chemotherapy-induced pancytopenia with severe neutropenia (ANC ying 0.1). She was started on broad- spectrum antibiotics and filgrastim with subsequent improvement in ANC. No infectious source was identified, and she remained afebrile throughout admission. Once hemoglobin remained stable without recurrent bleeding and ANC showed recovery, anticoagulation was safely restarted with apixaban loading dose for treatment of pulmonary embolism. The patient tolerated this without bleeding complications. She also experienced decreased appetite and low mood during hospitalization. Buspirone was discontinued, and mirtazapine was initiated to address depression and stimulate appetite, with improvement in oral intake after family brought preferred foods. On the day of discharge, the patient was hemodynamically stable, hemoglobin remained stable, ANC improved, electrolytes normalized, diarrhea had resolved, and she was tolerating oral intake. She was deemed safe for discharge with close outpatient follow-up. Diagnosis during Admission: # Acute Blood Loss Anemia # Chemotherapy-Induced Hypoproliferative Anemia # Profound Neutropenia # Pancytopenia likely Chemo-Induced # Infection Risk / UTI # Pulmonary embolism, right lower lobe # Hx of breast cancer s/p mastectomy # Poor Oral Intake # Depression # Hypokalemia, improved #Nausea and vomiting #UTI #T2DM #Hx hypertension Discharge instructions: Follow up with primary care physician within 1 week of discharge Follow up with [facility] and Oncology within 1-2 weeks of discharge Instructions have been explained to the patient with regards to their medications and how to take them. Patient was able to explain back to physician and nursing staff how to take their medications. Patient expressed understanding with instructions. New Medications: Eliquis 10mg twice a day for 5 more days to complete a total of 7 days Eliquis 5mg twice a day for pulmonary embolism, please take this medication after completing the dose above. Please follow up with [facility]/Oncologist for follow up on these medications Hydrocortisone suppositories for 3 more days as recommended by GI services Mirtazipine 30mg everyday for appetite stimulation and mental health Continue to take the rest of your medications as prescribed by your primary care physician. Patient has been explained that should any symptoms recur or worsen patient is instructed to return to the Emergency Department. ----- Plan discussed with attending physician Dr. More Burris MD PGY-1 Internal Medicine Time Spent with Patient Time attestation: Total time spent providing and/or coordinating discharge services: Time spent: Greater than 30 minutes Exam Vital Signs Temp Pulse Resp BP Pulse Ox O2 Del Method O2 Flow Rate 97.4 F 88 18 142/69 H 98 Room Air 3 08/01/25 08:00 08/01/25 08:00 08/01/25 08:00 08/01/25 08:00 08/01/25 08:00 08/01/25 04:00 07/29/25 15:25 Narrative Exam Gen: A&O X 3, NAD HEENT: NCAT, EOMI, Pupils reactive SRIDEVI, not icteric. External ears normal. No rhinorrhea. Moist mucous membranes. Neck: Supple, full range of motion, no observable masses, No meningeal sign. Lungs: No Respiratory distress, clear bilateral. CV: RRR, no murmurs. Abdomen: Soft, nondistended, No rebound tenderness. MSK: No joint swelling, no redness, peripheral pulses presents, no peripheral edema. Skin: No rashes, petechiae, lesions. Neuro: No focal neurological deficits appreciated, sensory and motor intact. Psych: Cooperative, appropriate mood and effect. Discharge Plan Plan Patient Disposition: HOME (Self Care) Patient condition on transfer: Stable Care Plan Goals: Follow up with primary care physician within 1 week of discharge Follow up with [facility] and Oncology within 1-2 weeks of discharge Instructions have been explained to the patient with regards to their medications and how to take them. Patient was able to explain back to physician and nursing staff how to take their medications. Patient expressed understanding with instructions. New Medications: Eliquis 10mg twice a day for 5 more days to complete a total of 7 days Eliquis 5mg twice a day for pulmonary embolism, please take this medication after completing the dose above. Please follow up with [facility]/Oncologist for follow up on these medications Hydrocortisone suppositories for 3 more days as recommended by GI services Mirtazipine 30mg everyday for appetite stimulation and mental health Continue to take the rest of your medications as prescribed by your primary care physician. Patient has been explained that should any symptoms recur or worsen patient is instructed to return to the Emergency Department. Prescriptions/Referrals Prescriptions/Med Rec: New Eliquis 5 mg tablet 10 mg PO BID 5 Days Qty: 20 0RF Eliquis 5 mg tablet 5 mg PO BID 30 Days Qty: 60 0RF mirtazapine 30 mg tablet 30 mg PO QDAY Qty: 30 0RF hydrocortisone acetate [Anusol-HC] 25 mg suppository 25 mg HI QDAY 3 Days Qty: 12 0RF Continued glipizide 10 MG tablet 10 mg PO BID Qty: 0 ondansetron HCl 8 mg tablet 8 mg PO Q8H Patient Comments: TAKE 1 TABLET BY MOUTH EVERY 8 HOURS NEEDED losartan 50 mg tablet 50 mg PO DAILY Patient Comments: TAKE 1 TABLET BY MOUTH ONCE DAILY metformin 1,000 mg tablet 1,000 mg PO BID Patient Comments: TAKE 1 TABLET BY MOUTH TWICE DAILY WITH MEALS promethazine 12.5 mg tablet 12.5 mg PO TID PRN (Reason: nausea and vomiting) Qty: 14 0RF Held buspirone 10 mg tablet 10 mg PO Q12H Hold Instructions: Resume on 08/14/25. until see by PCP Patient Comments: TAKE 1 TABLET BY MOUTH TWICE DAILY Referrals: Uzair Diaz MD [Primary Care Provider, [facility]] Patient/Caregiver Discharge Instructions Print Language: Syriac Stand Alone Forms: Milena Award Info., Patient Portal Info Letter Discharge Order Discharge Orders: Discharge (Routine); Ordered 08/01/25 Ordered By: Guilherme Diaz Quality Discharge Quality Measures VTE prophylaxis
[2025-08-01] MEDS: MAGNESIUM OXIDE 400 MG TABLET PO (11:19)
[2025-08-01] MEDS: INSULIN LISPRO (AdmeLOG) 1 UNIT/0.01 ML UNIT SC (11:28)
[2025-08-01 12:00] VITALS: BP 164/77; PULSE 81; PULSE 86; RESP 18; TEMP 36.3; O2SAT 98
[2025-08-01 14:30] VITALS: BP 158/70; PULSE 94; RESP 17; TEMP 36.4; O2SAT 94
--- NOTE | 2025-08-01 17:34 | ESPR_ITS ---
Documentation for date of: 08/01/25 Subjective Subjective Interval history: Late entry for the note Case discussed with internal medicine team Hemoglobin hematocrit stable at 8.9 and 25.8 Patient can be discharged to be followed by the PCP Exam Vital Signs Temp Pulse Resp BP Pulse Ox O2 Del Method O2 Flow Rate 97.5 F 94 17 158/70 H 94 L Room Air 3 08/01/25 14:30 08/01/25 14:30 08/01/25 14:30 08/01/25 14:30 08/01/25 14:30 08/01/25 14:30 07/29/25 15:25 Objective Labs 08/01/25 08:12 08/01/25 08:12 Labs: Laboratory Results - last 24 hr 08/01/25 08:12 WBC 7.1 D RBC 3.03 L Hgb 8.9 L Hct 25.8 L MCV 85 MCH 29.4 MCHC 34.5 RDW Std Deviation 46.6 H Plt Count 134 L Neut % (Auto) 59 Lymph % (Auto) 17 Heard % (Auto) 14 H Eos % (Auto) 0 Baso % (Auto) 0 Neut # (Auto) 4.2 Lymph # (Auto) 1.2 Heard # (Auto) 1.0 H Eos # (Auto) 0.0 Baso # (Auto) 0.0 Immature Gran # (Auto) 0.64 H Absolute Nucleated RBC 0.10 H Immature Gran % 9 H Nucleated RBC % 1 H Sodium 152 H Potassium 3.0 L Chloride 112 H Carbon Dioxide 25.5 Anion Gap 15 BUN < 5 L Creatinine 0.6 Estim Creat Clear Calc 86.9 eGFR > 60 BUN/Creatinine Ratio 8 L Glucose 163 H Calculated Osmolality 302 H Calcium 7.6 L Corrected Calcium 8.2 L Magnesium 1.2 L Total Bilirubin 0.4 AST 15 ALT 7 L Alkaline Phosphatase 100 Total Protein 5.6 L Albumin 3.3 L Globulin 2.3 Albumin/Globulin Ratio 1.4 Impressions Impression: Lower GI bleed secondary to internal hemorrhoids requiring banding of the internal hemorrhoids Patient can be discharged home on full anticoagulation for the PE Assessment & Plan A&P Narrative # Anemia of blood loss # Pulmonary embolism # Diabetes mellitus type 2 # Essential hypertension # Anxiety neurosis Plan N.p.o. Consent obtained for fiberoptic esophagogastroduodenoscopy therapeutic intervention under intravenous moderate sedation if EGD is negative start the patient on heparin will prepare with clear liquid diet and GoLytely for a colonoscopy tomorrow Thank you very much for the opportunity to participate in care of this patient Time Spent With Patient Time: Total time spent is greater than 50% in coordination of care (as documented) at patient's floor/unit and/or counseling patient:
== END 2025-08-01 14:40 | disposition home or self-care (01) | DRG 952 ==
LOC: SERX 17:01 → SERHOLD 21:45 → S3SX 23:13
PROVIDERS: Internal Medicine; Physician Assistant; Specialist; Student in an Organized Health Care Education/Training Program; Admitting Provider Internal Medicine; Emergency Provider Family Medicine; PCP Family Medicine; Visit Provider Internal Medicine
PROC: (CPT 43239; principal; 2025-07-28 19:00)
PROC: 0DJD8ZZ Inspection of Lower Intestinal Tract, Via Natural or Artificial Opening Endoscopic (ICD-10-PCS; CPT 45378; principal; 2025-07-29 16:00)
DX: I26.99 Other pulmonary embolism without acute cor pulmonale (principal); D62 Acute posthemorrhagic anemia; D61.818 Other pancytopenia; I10 Essential (primary) hypertension; E11.9 Type 2 diabetes mellitus without complications; Z90.12 Acquired absence of left breast and nipple; C50.912 Malignant neoplasm of unspecified site of left female breast; F32.A Depression, unspecified; K31.89 Other diseases of stomach and duodenum; K64.2 Third degree hemorrhoids; N39.0 Urinary tract infection, site not specified; T45.1X5A Adverse effect of antineoplastic and immunosuppressive drugs, initial encounter; D61.810 Antineoplastic chemotherapy induced pancytopenia; E87.6 Hypokalemia; K64.8 Other hemorrhoids; I83.90 Asymptomatic varicose veins of unspecified lower extremity; F41.1 Generalized anxiety disorder; Z79.84 Long term (current) use of oral hypoglycemic drugs
CPT/HCPCS: 36415; 74018; 80053; 83036; 83540; 83550; 83615; 83735; 85014; 85018; 85025; 85046; 85610; 85730; 86850; 86900; 86901; 86923; 87040; 87086; 93225; 93970; 96365; 96366; 99283; A4649; G0378; J1200; J1644; J1815; J2250; J2405; J2470; J2543; J3010; J3475; J3480; J7030; P9016; Q5101; A9270

== ENCOUNTER → 2025-07-27 | Outpatient (CLI) | payer MEDICAID, SELFPAY ==
--- NOTE | 2025-07-27 13:00 | XR_ITS ---
Examination: CT chest with intravenous contrast CT abdomen with intravenous contrast CT pelvis with intravenous contrast 2-D coronal and sagittal reconstructions Time of exam: July 27, 2025 1332 hours, comparison June 26, 2025 CT abdomen pelvis, PET scan March 10, 2025 INDICATIONS: Diagnosis malignant neoplasm of left female breast, currently on treatment for left breast cancer, restaging CTDI: vol (mGy) : 8.55 DLP: (mGycm): 573 Technique: Multiple axial images of the chest, abdomen and pelvis with intravenous contrast, 3.0 mm slice thickness. Images obtained post intravenous injection Isovue 370 60 cc. 2-D sagittal and coronal reconstructions. Low dose protocols were performed. One or more of the following dose reduction techniques were used; automated exposure control, adjustment of the mA and/or KV according to patient size, use of iterative reconstruction technique. Findings: No thoracic aortic aneurysmal dilatation Main pulmonary artery segment 35 mm Positive for pulmonary artery emboli in right lower lobe pulmonary artery branches, for instance axial image 64 Left mastectomy No chest wall breast mass or axillary lymphadenopathy No pulmonary nodules No visualized liver or splenic lesion Gallstones No pancreatic or adrenal mass Aorta normal size No abdominal or pelvic lymphadenopathy No pericecal inflammatory change Urinary bladder wall thickening, mild Prominent osteopenia IMPRESSION: Positive for right lower lobe pulmonary artery emboli No breast mass or axillary lymphadenopathy No mediastinal lymphadenopathy Negative for pulmonary metastatic nodules No abdominal or pelvic lymphadenopathy
== END | disposition home or self-care (01) ==
PROVIDERS: PCP Family Medicine; Referring Provider Internal Medicine Hematology & Oncology; Visit Provider Internal Medicine Hematology & Oncology
DX: I26.99 Other pulmonary embolism without acute cor pulmonale (principal); C50.412 Malignant neoplasm of upper-outer quadrant of left female breast
CPT/HCPCS: 71260; 74177; A4649; Q9967